=== PATIENT | male | born 1965 | race Two or more races ===

== ENCOUNTER → 2020-08-14 | Outpatient (CLI) | payer OTHER ==
[2020-08-14 14:43] LABS: BASO % 1 % (0-3); EOS # 0.1 x10^3/uL (0.0-0.7); EOS % 1 % (0-3); HEMATOCRIT 44.6 % (39.0-53.0); HEMOGLOBIN 15.3 g/dL (13.0-17.5); LYMPH # 1.5 x10^3/uL (1.0-4.8); LYMPH % 26 % (24-48); MEAN CORPUSCULAR HEMOGLOBIN 31 pg (25-35); MEAN CORPUSCULAR HGB CONC 34 g/dL (31-37); MEAN CORPUSCULAR VOLUME 89 fL (79-100); MONO # 0.5 x10^3/uL (0.0-1.1); MONO % 9 % (0-9); NEUT # 3.6 x10^3/uL (1.8-7.7); NEUT % 63 % (31-73); PLATELET COUNT 246 x10^3/uL (140-400); RED BLOOD COUNT 4.99 x10^6/uL (4.30-5.70); RED CELL DISTRIBUTION WIDTH 12.7 % (11.5-14.5); WHITE BLOOD COUNT 5.8 x10^3/uL (4.0-11.0)
[2020-08-14 14:52] LABS: CREATININE 0.9 mg/dL (0.7-1.3); POTASSIUM 4.2 mmol/L (3.5-5.1)
== END ==
LOC: SURGPAT 14:02
PROVIDERS: ATTEND Surgery
DX: Z01.812 Encounter for preprocedural laboratory examination (principal); C16.9 Malignant neoplasm of stomach, unspecified; Z98.84 Bariatric surgery status; Z20.828 Contact with and (suspected) exposure to other viral communicable diseases
CPT/HCPCS: 80048; 85025; U0003

== ENCOUNTER 2020-08-15 09:00 | Inpatient (IN) | payer OTHER ==
[~2020-08-15] VITALS: Ht 162.6 cm; Wt 79.7 kg
[2020-08-18] MEDS ORDERED: BUPIVACAINE-EPI 0.5%-1:200000 MPF 30 ML VIAL. INJ ONE (06:00)
[2020-08-18] MEDS ORDERED: MORPHINE SULFATE 2 MG/ML VIAL. IV PRN (07:00)
[2020-08-18] MEDS ORDERED: PROCHLORPERAZINE 10 MG/2 ML VIAL. IV PRN (07:00)
[2020-08-18] MEDS ORDERED: LIDOCAINE 1% PF 2 ML VIAL. ID PRN (07:00)
[2020-08-18] MEDS ORDERED: ONDANSETRON PF 4 MG/2 ML VIAL. IV PRN (07:00)
[2020-08-18] MEDS ORDERED: fentaNYL PF VIAL 100 MCG/2 ML VIAL IV PRN ×2 (07:00)
[2020-08-18] MEDS ORDERED: IV RINGERS,LACTATED 1000ML 1,000 ML IV SCH (07:00)
[2020-08-18] MEDS ORDERED: HYDROmorphone 2 MG/ML VIAL IV PRN (07:00)
[2020-08-18] MEDS ORDERED: PROPOFOL 10 MG/ML (20ML) VIAL. IV ONE (08:51)
[2020-08-18] MEDS ORDERED: LIDOCAINE 2% PF 5 ML VIAL. ONE (08:51)
[2020-08-18] MEDS ORDERED: ROCURONIUM 50 MG/5 ML VIAL. ONE ×3 (08:52→12:11)
[2020-08-18] MEDS ORDERED: fentaNYL PF VIAL 250 MCG/5 ML VIAL ONE (08:52)
[2020-08-18] MEDS ORDERED: MIDAZOLAM HCL/PF 2 MG/2 ML VIAL. ONE (08:52)
[2020-08-18] MEDS ORDERED: BUPIVACAINE MPF 0.25% 10 ML VIAL. ONE (09:12)
--- NOTE | 2020-08-18 09:25 | PDOC ---
SURGICAL PROGRESS NOTE DATE: 08/18/20 TIME: 09:22 Subjective 55 yo M with diffuse gastric cancer. TO OR for total gastrectomy with reconstruction. R/R/B/A d/w pt and pt's family. Risks, including, but not limited to: bleeding, infection, damage to surrounding structures, risk of anesthesia, risk of leak, need for J-tube, drains, saab and NGT. They appear to understand, their questions are answered and they elect to proceed. Office note H&P reviewed and unchanged. Vital Signs Vital Signs Date Time Temp Pulse Resp B/P (MAP) Pulse Ox O2 Delivery O2 Flow Rate FiO2 08/18/20 08:41 98.0 65 18 139/92 96 Room Air 98.0 Justicifation of Admission Dx: Justifications for Admission: Justification of Admission Dx: Yes CHF: Hemodynamic Instability MARVIN ENGEL MD Aug 18, 2020 09:25
[2020-08-18] MEDS: cefOXitin SODIUM IV Push 2 GM VIAL. IVP PRN ×2 (09:30→12:30)
[2020-08-18] MEDS ORDERED: ONDANSETRON PF 4 MG/2 ML VIAL. ONE (09:58)
[2020-08-18] MEDS ORDERED: DEXAMETHASONE SOD PHOS 4 MG/ML VIAL ONE (09:58)
[2020-08-18] MEDS ORDERED: PHENYLEPHRINE 10 MG/ML VIAL. ONE ×2 (10:16→10:52)
[2020-08-18] MEDS ORDERED: PHENYLEPHRINE in 0.9% NACL PF 1 MG/10 ML SYRINGE. IV ONE (10:52)
[2020-08-18] MEDS ORDERED: ePHEDrine PF IN SALINE 50 MG/10 ML SYRINGE. IV ONE (10:52)
[2020-08-18] MEDS ORDERED: NEOSTIGMINE METHYLSULFATE 5 MG/5 ML SYRINGE. ONE (13:14)
[2020-08-18] MEDS ORDERED: GLYCOPYRROLATE 1 MG/5 ML VIAL. ONE (13:14)
[2020-08-18] MEDS ORDERED: fentaNYL PF VIAL 100 MCG/2 ML VIAL ONE ×2 (13:36→15:16)
[2020-08-18] MEDS ORDERED: 0.9 % SODIUM CHLORIDE 10 ML DISP.SYRIN. IV PRN (13:45)
[2020-08-18] MEDS ORDERED: ONDANSETRON PF 4 MG/2 ML VIAL. IVP PRN (13:45)
[2020-08-18] MEDS: IV NORMAL SALINE 1000ML BAG 1,000 ML IV SCH (13:45)
[2020-08-18] MEDS ORDERED: NALOXONE 0.4 MG/ML VIAL. IV PRN (13:45)
--- NOTE | 2020-08-18 14:01 | PDOC4 ---
OPERATIVE NOTE Date: Date: Aug 18, 2020 Pre-Op Diagnosis: Gastric cancer Post-Op Diagnosis: same Procedure Performed: Total gastrectomy with renard en y reconstruction, J-tube placement Surgeon: Preston Engel Anesthesia Type: GETA Blood Loss: 200 Specimans Obtained: stomach Findings: normal anatomy, no obvious metastatic disease, externally normal stomach, except two small nodule anterior serosa, thickened ruggae in fundus Complications: none Operative Note: After obtaining informed consent, patient was taken to OR, induced under GETA and prepped in the usual fashion. Midline incision was made with cautery. Abdominal cavity was explored and noted as above. Omentum taken off transverse colon using cautery and ligasure. Short gastrics taken up to angle of his with ligasure. Spleen was uninjured. Duodenum was divided just distal to pylorus with contour stapler. Duodenal stump was oversewn with 3 0 vicryl. Lesser curve was taken with ligasure, harvesting paraduodenal and hepatic lymph nodes. Replaced left hepatic artery not seen. Left gastric divided at origin with ligasure and 0 vicryl stick tie. Anterior peritoneum was taken off pancreas using cautery and maintained with specimen. GE junction divided with cautery. Specimen was taken to pathology and reviewed. No obvious mass noted, although prominent rugae seen in fundus, c/w EGD report. Small bowel divided with SP stapler 30 cm distal to ligament of treitz. Proximal end of distal portion anastomosed to esophagus in end to side anastomosis with 3 0 PDS inside and 3 0 vicryl externally. NGT placed across anastomosis. Air was inflated and no air bubbles seen. Jejunojejunostomy created with 75 SP and 3 0 PDs 3 0 vicryl for enterotomy. Anastomosis noted to be patent, viable, under no tension and completely viable. Jejunostomy placed in common channel with 3 0 vicryl pursestring. Tacked to anterior abdominal wall using 3 0 vicryl and balloon inflated with 3 cc saline. Copious irrigation. No evidence of bleeding or other pathology noted at time of closure. 19 JUNIOR drain placed in LUQ and secured with 3 0 nylon. J tube secured with 3 0 nylon. Fascia repaired with 0 looped PDS. Skin repaired with 2 0 vicryl and 4 0 monocryl with mitchell left in wound. Dressing placed. Patient tolerated procedure well and sent to PACU in stable condition. All counts correct. Wound class is 3. MARVIN ENGEL MD Aug 18, 2020 14:01
[2020-08-18] MEDS: NORMAL SALINE 36.7 ML, fentaNYL PF VIAL 250 MCG, BUPIVACAINE MPF 0.75% 8.3 ML in EPIDUR... EPID PRN ×3 (14:40→20:12)
--- NOTE | 2020-08-18 15:04 | RAD ---
One view lower abdomen pelvis KUB 1:42 PM HISTORY: Post gastrectomy Supine AP view lower and pelvis KUB There is a percutaneous feeding tube on the left. There is no obvious free air. There is a nonobstructive bowel gas pattern. There is an NG tube in place. There is a linear vertical opacity superimposed over the spine which is felt to be something overlying the patient. IMPRESSION: Postop gastrectomy Electronically signed by: Paul Rosado III, MD (08/18/2020 3:01 PM) [facility]
[2020-08-18] MEDS ORDERED: SEVOFLURANE > 120 MINUTES. IH ONE (16:00)
--- NOTE | 2020-08-18 20:00 | NUR ---
patient receieved from PACU to room alert and OX4, Epidural/PCEA for pain management set up for patient,,assessment done . will Continue POC. Patient understand.
[2020-08-18] MEDS: HEPARIN for SUB-Q USE 5,000 UNIT/ML VIAL. SQ SCH (21:00)
[2020-08-18] MEDS: FAMOTIDINE 20 MG/2 ML VIAL IVP SCH (22:18)
[2020-08-18 23:00] VITALS: BP 101/56
[2020-08-18] MEDS: IV RINGERS,LACTATED 1000ML 1,000 ML IV SCH (23:45)
[2020-08-19] MEDS: IV RINGERS,LACTATED 1000ML 1,000 ML IV SCH ×3 (00:06→20:46)
--- NOTE | 2020-08-19 01:49 | NUR ---
pt stated he's feeling some numbness on his left forearm ad hands, APPLICATIONS INSTRUCTOR paged.
[2020-08-19] MEDS: NORMAL SALINE 36.7 ML, fentaNYL PF VIAL 250 MCG, BUPIVACAINE MPF 0.75% 8.3 ML in EPIDUR... EPID PRN ×6 (02:09→23:49)
--- NOTE | 2020-08-19 02:31 | NUR ---
JENA Watkins, ordered to decreased epidural hourly rate to 6ml/hr
[2020-08-19 03:00] VITALS: BP 110/60
[2020-08-19 07:00] VITALS: BP 110/62
[2020-08-19] MEDS: FAMOTIDINE 20 MG/2 ML VIAL IVP SCH ×2 (09:40→21:10)
[2020-08-19] MEDS: HEPARIN for SUB-Q USE 5,000 UNIT/ML VIAL. SQ SCH ×2 (09:44→21:16)
--- NOTE | 2020-08-19 09:56 | NUR ---
SW following. Discussed with RN, pt from home, 3L oxygen - which patient does not use at home, NPO. Pt has an epidural, had surgery 08/18/2020. RN advised no SW needs at this time. SW will continue to follow for any discharge planning needs. Addendum: 08/19/20 at 1304 by FAZAL VIZCARRA Pt has NG tube, J tube, and JUNIOR drain.
[2020-08-19 10:02] LABS: BASO % 0 % (0-3); EOS % 0 % (0-3); HEMATOCRIT 39.2 % (39.0-53.0); HEMOGLOBIN 13.1 g/dL (13.0-17.5); LYMPH # 1.3 x10^3/uL (1.0-4.8); LYMPH % 10 % (24-48); MEAN CORPUSCULAR HEMOGLOBIN 30 pg (25-35); MEAN CORPUSCULAR HGB CONC 33 g/dL (31-37); MEAN CORPUSCULAR VOLUME 91 fL (79-100); MONO # 1.1 x10^3/uL (0.0-1.1); MONO % 9 % (0-9); NEUT # 10.2 x10^3/uL (1.8-7.7); NEUT % 81 % (31-73); PLATELET COUNT 189 x10^3/uL (140-400); RED BLOOD COUNT 4.32 x10^6/uL (4.30-5.70); WHITE BLOOD COUNT 12.6 x10^3/uL (4.0-11.0)
[2020-08-19 10:13] LABS: CALCIUM 8.4 mg/dL (8.5-10.1); CREATININE 1.1 mg/dL (0.7-1.3)
--- NOTE | 2020-08-19 10:26 | PDOC ---
SURGICAL PROGRESS NOTE DATE: 08/19/20 TIME: 10:25 Subjective doing ok pain managed Vital Signs Vital Signs Date Time Temp Pulse Resp B/P (MAP) Pulse Ox O2 Delivery O2 Flow Rate FiO2 08/19/20 07:54 Nasal Cannula 3.0 08/19/20 07:00 99.2 77 18 110/62 (78) 92 99.2 I&O Intake and Output 08/19/20 07:00 Intake Total 2500 ml Output Total 790 ml Balance 1710 ml Intake Oral 0 ml IV Total 2500 ml Output Urine Total 455 ml Drainage Total 135 ml Estimated Blood Loss 200 ml PATIENT HAS A OSCAR: Yes General: Cooperative, No acute distress HEENT: Other (NG in place) Abdomen: Soft, Other (dressing dry, j tube in place, dominique serosang) Labs Laboratory Tests Test 08/18/20 17:00 08/19/20 09:25 Glucose (Fingerstick) 98 mg/dL (70-99) White Blood Count 12.6 x10^3/uL (4.0-11.0) Red Blood Count 4.32 x10^6/uL (4.30-5.70) Hemoglobin 13.1 g/dL (13.0-17.5) Hematocrit 39.2 % (39.0-53.0) Mean Corpuscular Volume 91 fL (79-100) Mean Corpuscular Hemoglobin 30 pg (25-35) Mean Corpuscular Hemoglobin Concent 33 g/dL (31-37) Red Cell Distribution Width 13.0 % (11.5-14.5) Platelet Count 189 x10^3/uL (140-400) Neutrophils (%) (Auto) 81 % (31-73) Lymphocytes (%) (Auto) 10 % (24-48) Monocytes (%) (Auto) 9 % (0-9) Eosinophils (%) (Auto) 0 % (0-3) Basophils (%) (Auto) 0 % (0-3) Neutrophils # (Auto) 10.2 x10^3/uL (1.8-7.7) Lymphocytes # (Auto) 1.3 x10^3/uL (1.0-4.8) Monocytes # (Auto) 1.1 x10^3/uL (0.0-1.1) Eosinophils # (Auto) 0.0 x10^3/uL (0.0-0.7) Basophils # (Auto) 0.0 x10^3/uL (0.0-0.2) Sodium Level 142 mmol/L (136-145) Potassium Level 4.0 mmol/L (3.5-5.1) Chloride Level 106 mmol/L (98-107) Carbon Dioxide Level 28 mmol/L (21-32) Anion Gap 8 (6-14) Blood Urea Nitrogen 14 mg/dL (8-26) Creatinine 1.1 mg/dL (0.7-1.3) Estimated GFR (Cockcroft-Gault) 69.0 Glucose Level 110 mg/dL (70-99) Calcium Level 8.4 mg/dL (8.5-10.1) Laboratory Tests Test 08/18/20 17:00 08/19/20 09:25 Glucose (Fingerstick) 98 mg/dL (70-99) White Blood Count 12.6 x10^3/uL (4.0-11.0) Red Blood Count 4.32 x10^6/uL (4.30-5.70) Hemoglobin 13.1 g/dL (13.0-17.5) Hematocrit 39.2 % (39.0-53.0) Mean Corpuscular Volume 91 fL (79-100) Mean Corpuscular Hemoglobin 30 pg (25-35) Mean Corpuscular Hemoglobin Concent 33 g/dL (31-37) Red Cell Distribution Width 13.0 % (11.5-14.5) Platelet Count 189 x10^3/uL (140-400) Neutrophils (%) (Auto) 81 % (31-73) Lymphocytes (%) (Auto) 10 % (24-48) Monocytes (%) (Auto) 9 % (0-9) Eosinophils (%) (Auto) 0 % (0-3) Basophils (%) (Auto) 0 % (0-3) Neutrophils # (Auto) 10.2 x10^3/uL (1.8-7.7) Lymphocytes # (Auto) 1.3 x10^3/uL (1.0-4.8) Monocytes # (Auto) 1.1 x10^3/uL (0.0-1.1) Eosinophils # (Auto) 0.0 x10^3/uL (0.0-0.7) Basophils # (Auto) 0.0 x10^3/uL (0.0-0.2) Sodium Level 142 mmol/L (136-145) Potassium Level 4.0 mmol/L (3.5-5.1) Chloride Level 106 mmol/L (98-107) Carbon Dioxide Level 28 mmol/L (21-32) Anion Gap 8 (6-14) Blood Urea Nitrogen 14 mg/dL (8-26) Creatinine 1.1 mg/dL (0.7-1.3) Estimated GFR (Cockcroft-Gault) 69.0 Glucose Level 110 mg/dL (70-99) Calcium Level 8.4 mg/dL (8.5-10.1) Problem List supportive care NG, j tube, DOMINIQUE Justicifation of Admission Dx: Justifications for Admission: Justification of Admission Dx: Yes CHF: Hemodynamic Instability MANUELA ALVES HEAD CORRECTION OFFICER Aug 19, 2020 10:26
[2020-08-19 11:00] VITALS: BP 100/63
[2020-08-19] MEDS: IV NORMAL SALINE 1000ML BAG 1,000 ML IV SCH (13:45)
[2020-08-19 15:00] VITALS: BP 109/66
[2020-08-19 19:00] VITALS: BP 128/76
[2020-08-19 23:00] VITALS: BP 129/84
[2020-08-20 03:00] VITALS: BP 140/82
[2020-08-20] MEDS: NORMAL SALINE 36.7 ML, fentaNYL PF VIAL 250 MCG, BUPIVACAINE MPF 0.75% 8.3 ML in EPIDUR... EPID PRN ×4 (05:22→21:19)
[2020-08-20 07:00] VITALS: BP 125/79
[2020-08-20] MEDS: FAMOTIDINE 20 MG/2 ML VIAL IVP SCH ×2 (08:29→20:53)
[2020-08-20] MEDS: IV RINGERS,LACTATED 1000ML 1,000 ML IV SCH ×3 (08:29→22:35)
[2020-08-20] MEDS: HEPARIN for SUB-Q USE 5,000 UNIT/ML VIAL. SQ SCH ×2 (08:32→20:57)
--- NOTE | 2020-08-20 09:21 | PDOC ---
SURGICAL PROGRESS NOTE DATE: 08/20/20 TIME: 09:20 Subjective Pt reports doing well, pain controlled, no flatus Vital Signs Vital Signs Date Time Temp Pulse Resp B/P (MAP) Pulse Ox O2 Delivery O2 Flow Rate FiO2 08/20/20 07:00 99.1 85 18 125/79 (94) 93 Room Air 99.1 08/20/20 05:52 2.0 I&O Intake and Output 08/20/20 07:00 Output Total 1170 ml Balance -1170 ml Output Urine Total 1100 ml Drainage Total 70 ml PATIENT HAS A OSCAR: Yes General: Alert, Oriented X3, Cooperative, No acute distress Abdomen: Soft, No tenderness, Other (JUNIOR serosang) Labs Laboratory Tests Test 08/18/20 17:00 08/19/20 09:25 Glucose (Fingerstick) 98 mg/dL (70-99) White Blood Count 12.6 x10^3/uL (4.0-11.0) Red Blood Count 4.32 x10^6/uL (4.30-5.70) Hemoglobin 13.1 g/dL (13.0-17.5) Hematocrit 39.2 % (39.0-53.0) Mean Corpuscular Volume 91 fL (79-100) Mean Corpuscular Hemoglobin 30 pg (25-35) Mean Corpuscular Hemoglobin Concent 33 g/dL (31-37) Red Cell Distribution Width 13.0 % (11.5-14.5) Platelet Count 189 x10^3/uL (140-400) Neutrophils (%) (Auto) 81 % (31-73) Lymphocytes (%) (Auto) 10 % (24-48) Monocytes (%) (Auto) 9 % (0-9) Eosinophils (%) (Auto) 0 % (0-3) Basophils (%) (Auto) 0 % (0-3) Neutrophils # (Auto) 10.2 x10^3/uL (1.8-7.7) Lymphocytes # (Auto) 1.3 x10^3/uL (1.0-4.8) Monocytes # (Auto) 1.1 x10^3/uL (0.0-1.1) Eosinophils # (Auto) 0.0 x10^3/uL (0.0-0.7) Basophils # (Auto) 0.0 x10^3/uL (0.0-0.2) Sodium Level 142 mmol/L (136-145) Potassium Level 4.0 mmol/L (3.5-5.1) Chloride Level 106 mmol/L (98-107) Carbon Dioxide Level 28 mmol/L (21-32) Anion Gap 8 (6-14) Blood Urea Nitrogen 14 mg/dL (8-26) Creatinine 1.1 mg/dL (0.7-1.3) Estimated GFR (Cockcroft-Gault) 69.0 Glucose Level 110 mg/dL (70-99) Calcium Level 8.4 mg/dL (8.5-10.1) Laboratory Tests Test 08/19/20 09:25 White Blood Count 12.6 x10^3/uL (4.0-11.0) Red Blood Count 4.32 x10^6/uL (4.30-5.70) Hemoglobin 13.1 g/dL (13.0-17.5) Hematocrit 39.2 % (39.0-53.0) Mean Corpuscular Volume 91 fL (79-100) Mean Corpuscular Hemoglobin 30 pg (25-35) Mean Corpuscular Hemoglobin Concent 33 g/dL (31-37) Red Cell Distribution Width 13.0 % (11.5-14.5) Platelet Count 189 x10^3/uL (140-400) Neutrophils (%) (Auto) 81 % (31-73) Lymphocytes (%) (Auto) 10 % (24-48) Monocytes (%) (Auto) 9 % (0-9) Eosinophils (%) (Auto) 0 % (0-3) Basophils (%) (Auto) 0 % (0-3) Neutrophils # (Auto) 10.2 x10^3/uL (1.8-7.7) Lymphocytes # (Auto) 1.3 x10^3/uL (1.0-4.8) Monocytes # (Auto) 1.1 x10^3/uL (0.0-1.1) Eosinophils # (Auto) 0.0 x10^3/uL (0.0-0.7) Basophils # (Auto) 0.0 x10^3/uL (0.0-0.2) Sodium Level 142 mmol/L (136-145) Potassium Level 4.0 mmol/L (3.5-5.1) Chloride Level 106 mmol/L (98-107) Carbon Dioxide Level 28 mmol/L (21-32) Anion Gap 8 (6-14) Blood Urea Nitrogen 14 mg/dL (8-26) Creatinine 1.1 mg/dL (0.7-1.3) Estimated GFR (Cockcroft-Gault) 69.0 Glucose Level 110 mg/dL (70-99) Calcium Level 8.4 mg/dL (8.5-10.1) Problem List s/p total gastrectomy await bowel fxn await path OOB cont NGT Justicifation of Admission Dx: Justifications for Admission: Justification of Admission Dx: Yes CHF: Hemodynamic Instability MARVIN ENGEL MD Aug 20, 2020 09:21
[2020-08-20 11:00] VITALS: BP 135/83
[2020-08-20] MEDS: IV NORMAL SALINE 1000ML BAG 1,000 ML IV SCH (13:45)
[2020-08-20 15:00] VITALS: BP 137/83
[2020-08-20 19:00] VITALS: BP 140/90
[2020-08-20 23:00] VITALS: BP 171/99
[2020-08-21 03:00] VITALS: BP 140/85
[2020-08-21] MEDS: NORMAL SALINE 36.7 ML, fentaNYL PF VIAL 250 MCG, BUPIVACAINE MPF 0.75% 8.3 ML in EPIDUR... EPID PRN ×5 (03:58→22:33)
[2020-08-21 07:00] VITALS: BP 148/92
[2020-08-21] MEDS: FAMOTIDINE 20 MG/2 ML VIAL IVP SCH ×2 (09:07→20:29)
[2020-08-21] MEDS: HEPARIN for SUB-Q USE 5,000 UNIT/ML VIAL. SQ SCH ×2 (09:08→20:35)
[2020-08-21] MEDS: IV RINGERS,LACTATED 1000ML 1,000 ML IV SCH ×2 (09:09→20:30)
--- NOTE | 2020-08-21 09:54 | PDOC ---
SURGICAL PROGRESS NOTE DATE: 08/21/20 TIME: 09:53 Subjective up in room using urinal pain managed Vital Signs Vital Signs Date Time Temp Pulse Resp B/P (MAP) Pulse Ox O2 Delivery O2 Flow Rate FiO2 08/21/20 09:19 16 Nasal Cannula 2.0 08/21/20 07:00 98.4 84 148/92 (110) 91 98.4 I&O Intake and Output 08/21/20 07:00 Intake Total 2400 ml Output Total 10 ml Balance 2390 ml IV Total 1200 ml Other 1200 ml Drainage Total 10 ml # Voids 1 General: Alert, Cooperative HEENT: Other (NG in place) Abdomen: Soft, Other (j tube drainage, dominique serosang) Assessment/Plan will clamp NG today Justicifation of Admission Dx: Justifications for Admission: Justification of Admission Dx: Yes CHF: Hemodynamic Instability MANUELA ALVES APRN Aug 21, 2020 09:54
[2020-08-21 11:00] VITALS: BP 140/86
[2020-08-21] MEDS: IV NORMAL SALINE 1000ML BAG 1,000 ML IV SCH (13:45)
[2020-08-21 15:00] VITALS: BP 133/84
[2020-08-21 19:20] VITALS: BP 160/93
[2020-08-21 23:10] VITALS: BP 158/91
[2020-08-22] MEDS: KETOROLAC 15 MG/ML VIAL. IVP SCH ×4 (00:19→18:07)
[2020-08-22 02:59] VITALS: BP 133/75
[2020-08-22] MEDS: NORMAL SALINE 36.7 ML, fentaNYL PF VIAL 250 MCG, BUPIVACAINE MPF 0.75% 8.3 ML in EPIDUR... EPID PRN ×5 (03:03→20:11)
[2020-08-22] MEDS: IV RINGERS,LACTATED 1000ML 1,000 ML IV SCH ×2 (06:20→16:18)
[2020-08-22 07:00] VITALS: BP 140/84
[2020-08-22] MEDS: FAMOTIDINE 20 MG/2 ML VIAL IVP SCH ×2 (09:22→21:32)
[2020-08-22] MEDS: HEPARIN for SUB-Q USE 5,000 UNIT/ML VIAL. SQ SCH ×2 (09:30→21:41)
[2020-08-22 11:00] VITALS: BP 132/82
--- NOTE | 2020-08-22 12:00 | PDOC ---
SURGICAL PROGRESS NOTE DATE: 08/22/20 TIME: 11:58 Subjective feeling ok did have retention yesterday--replaced saab epidural still in place Vital Signs Vital Signs Date Time Temp Pulse Resp B/P (MAP) Pulse Ox O2 Delivery O2 Flow Rate FiO2 08/22/20 11:00 97.8 70 18 132/82 (99) 96 Room Air 97.8 08/22/20 07:35 2.0 I&O Intake and Output 08/22/20 07:00 Intake Total 1200 ml Output Total 1635 ml Balance -435 ml Intake Oral 0 ml Other 1200 ml Output Urine Total 1625 ml Gastric Drainage Total 5 ml Drainage Total 5 ml # Voids 1 General: Alert, Cooperative HEENT: Other (ng in place, clamped ) Abdomen: Soft, Other (dominique scant serosang drainage, j tube to DD) Assessment/Plan clears, leave ng in place, clamped Justicifation of Admission Dx: Justifications for Admission: Justification of Admission Dx: Yes CHF: Hemodynamic Instability MANUELA ALVES APRN Aug 22, 2020 12:00
[2020-08-22] MEDS: IV NORMAL SALINE 1000ML BAG 1,000 ML IV SCH (13:45)
[2020-08-22 15:00] VITALS: BP 138/80
[2020-08-22 19:30] VITALS: BP 136/92
[2020-08-22 23:20] VITALS: BP 150/77
[2020-08-23] MEDS: KETOROLAC 15 MG/ML VIAL. IVP SCH ×5 (00:31→21:04)
[2020-08-23] MEDS: NORMAL SALINE 36.7 ML, fentaNYL PF VIAL 250 MCG, BUPIVACAINE MPF 0.75% 8.3 ML in EPIDUR... EPID PRN ×4 (01:24→19:42)
[2020-08-23 03:00] VITALS: BP 150/88
[2020-08-23] MEDS: IV RINGERS,LACTATED 1000ML 1,000 ML IV SCH ×3 (03:21→23:45)
[2020-08-23 07:00] VITALS: BP 142/82
[2020-08-23] MEDS: FAMOTIDINE 20 MG/2 ML VIAL IVP SCH ×2 (09:34→21:00)
[2020-08-23] MEDS: HEPARIN for SUB-Q USE 5,000 UNIT/ML VIAL. SQ SCH ×2 (09:43→21:15)
[2020-08-23 11:00] VITALS: BP 151/85
--- NOTE | 2020-08-23 12:18 | PDOC ---
PROGRESS NOTES Date of Service DATE: 08/23/20 TIME: 12:16 Subjective Subjective notes some pain in L abdomen near drains; reports fever Objective Objective Vital Signs Date Time Temp Pulse Resp B/P (MAP) Pulse Ox O2 Delivery O2 Flow Rate FiO2 08/23/20 11:00 98.5 86 20 151/85 (107) 91 Room Air 98.5 08/22/20 17:22 2.0 Intake and Output 08/23/20 07:00 Intake Total 120 ml Output Total 1815 ml Balance -1695 ml Intake Oral 120 ml Output Urine Total 1700 ml Drainage Total 115 ml # Voids 2 Physical Exam Abdomen: Soft (L abdominal drain with purulent fluid) Assessment Assessment S/P gastrectomy Plan Plan of Care Note fever, change in drainage; discussed with Dr Elder, plan NPO, NG back to suction, start zosyn Comment Review of Relevant I have reviewed the following items pao (where applicable) has been applied. Medications Current Medications Ondansetron HCl (Zofran) 4 mg PRN Q6HRS PRN IV NAUSEA/VOMITING; Start 08/18/20 at 07:00; Stop 08/19/20 at 06:59; Status DC Fentanyl Citrate (Fentanyl 2ml Vial) 25 mcg PRN Q5MIN PRN IV MILD PAIN 1-3 Last administered on 08/18/20at 15:20; Start 08/18/20 at 07:00; Stop 08/19/20 at 06:59; Status DC Fentanyl Citrate (Fentanyl 2ml Vial) 50 mcg PRN Q5MIN PRN IV MODERATE TO SEVERE PAIN; Start 08/18/20 at 07:00; Stop 08/19/20 at 06:59; Status DC Morphine Sulfate (Morphine Sulfate) 1 mg PRN Q10MIN PRN IV SEVERE PAIN 7-10; Start 08/18/20 at 07:00; Stop 08/19/20 at 06:59; Status DC Ringer's Solution 1,000 ml @ 30 mls/hr Q24H IV Last administered on 08/18/20at 08:48; Start 08/18/20 at 07:00; Stop 08/18/20 at 18:59; Status DC Lidocaine HCl (Xylocaine-Mpf 1% 2ml Vial) 2 ml PRN 1X PRN ID PRIOR TO IV START; Start 08/18/20 at 07:00; Stop 08/19/20 at 06:59; Status DC Hydromorphone HCl (Dilaudid) 0.5 mg PRN Q10MIN PRN IV SEV PAIN, Second choice; Start 08/18/20 at 07:00; Stop 08/19/20 at 06:59; Status DC Prochlorperazine Edisylate (Compazine) 5 mg PACU PRN PRN IV NAUSEA, MRX1; Start 08/18/20 at 07:00; Stop 08/19/20 at 06:59; Status DC Cefoxitin Sodium (Mefoxin) 2 gm OC PROC PRN IVP PRE-OP Last administered on 08/18/20at 12:30; Start 08/18/20 at 06:00; Stop 08/18/20 at 18:00; Status DC Bupivacaine HCl/ Epinephrine Bitart (Sensorcain-Epi 0.5%-1:[id number] Mpf) 30 ml 1X ONCE INJ ; Start 08/18/20 at 06:00; Stop 08/18/20 at 06:01; Status DC Propofol (Diprivan) 200 mg STK-MED ONCE IV ; Start 08/18/20 at 08:51; Stop 08/18/20 at 08:52; Status DC Lidocaine HCl (Lidocaine Pf 2% Vial) 5 ml STK-MED ONCE .ROUTE ; Start 08/18/20 at 08:51; Stop 08/18/20 at 08:52; Status DC Rocuronium [place] (Zemuron) 50 mg STK-MED ONCE .ROUTE ; Start 08/18/20 at 08:52; Stop 08/18/20 at 08:52; Status DC Midazolam HCl (Versed) 2 mg STK-MED ONCE .ROUTE ; Start 08/18/20 at 08:52; Stop 08/18/20 at 08:52; Status DC Fentanyl Citrate (Fentanyl 5ml Vial) 250 mcg STK-MED ONCE .ROUTE ; Start 08/18/20 at 08:52; Stop 08/18/20 at 08:52; Status DC Bupivacaine HCl (Sensorcaine-Mpf 0.25%) 10 ml STK-MED ONCE .ROUTE ; Start 08/18/20 at 09:12; Stop 08/18/20 at 09:12; Status DC Ondansetron HCl (Zofran) 4 mg STK-MED ONCE .ROUTE ; Start 08/18/20 at 09:58; Stop 08/18/20 at 09:58; Status DC Dexamethasone Sodium Phosphate (Decadron) 4 mg STK-MED ONCE .ROUTE ; Start 08/18/20 at 09:58; Stop 08/18/20 at 09:58; Status DC Phenylephrine HCl (Surya-Synephrine Inj) 10 mg STK-MED ONCE .ROUTE ; Start 08/18/20 at 10:16; Stop 08/18/20 at 10:16; Status DC Rocuronium [place] (Zemuron) 50 mg STK-MED ONCE .ROUTE ; Start 08/18/20 at 10:34; Stop 08/18/20 at 10:34; Status DC Phenylephrine HCl (Surya-Synephrine Inj) 10 mg STK-MED ONCE .ROUTE ; Start 08/18/20 at 10:52; Stop 08/18/20 at 10:52; Status DC Phenylephrine HCl (PHENYLEPHRINE in 0.9% NACL PF) 1 mg STK-MED ONCE IV ; Start 08/18/20 at 10:52; Stop 08/18/20 at 10:53; Status DC Ephedrine Sulfate (ePHEDrine PF IN SALINE SYRINGE) 50 mg STK-MED ONCE IV ; Start 08/18/20 at 10:52; Stop 08/18/20 at 10:53; Status DC Rocuronium [place] (Zemuron) 50 mg STK-MED ONCE .ROUTE ; Start 08/18/20 at 12:11; Stop 08/18/20 at 12:11; Status DC Sodium Chloride 36.7 ml/Fentanyl Citrate 250 mcg/ Bupivacaine HCl 8.3 ml/Epidural Dosage Infused (Pha) 50 ml @ 0 mls/hr CONT PRN EPID SEE PROTOCOL TABLE Last administered on 08/19/20at 12:48; Start 08/18/20 at 13:00; Stop 08/19/20 at 02:30; Status DC Neostigmine [place] (Neostigmine Methylsulfate) 5 mg STK-MED ONCE .ROUTE ; Start 08/18/20 at 13:14; Stop 08/18/20 at 13:14; Status DC Glycopyrrolate (Robinul) 1 mg STK-MED ONCE .ROUTE ; Start 08/18/20 at 13:14; Stop 08/18/20 at 13:14; Status DC Fentanyl Citrate (Fentanyl 2ml Vial) 100 mcg STK-MED ONCE .ROUTE ; Start 08/18/20 at 13:36; Stop 08/18/20 at 13:36; Status DC Famotidine (Pepcid Vial) 20 mg BID IVP Last administered on 08/23/20at 09:34; Start 08/18/20 at 21:00 Heparin Sodium (Porcine) (Heparin Sodium) 5,000 unit Q12HR SQ Last administered on 08/23/20at 09:43; Start 08/18/20 at 21:00 Sodium Chloride (Normal Saline Flush) 3 ml QSHIFT PRN IV AFTER MEDS AND BLOOD DRAWS; Start 08/18/20 at 13:45 Ringer's Solution 1,000 ml @ 100 mls/hr Q10H IV Last administered on 08/23/20at 03:21; Start 08/18/20 at 13:45 Naloxone HCl (Narcan) 0.4 mg PRN Q2MIN PRN IV SEE INSTRUCTIONS; Start 08/18/20 at 13:45 Sodium Chloride 1,000 ml @ 25 mls/hr Q24H IV ; Start 08/18/20 at 13:45 Ondansetron HCl (Zofran) 4 mg PRN Q6HRS PRN IVP NAUSEA, 1ST CHOICE; Start 08/18/20 at 13:45 Fentanyl Citrate (Fentanyl 2ml Vial) 100 mcg STK-MED ONCE .ROUTE ; Start 08/18/20 at 15:16; Stop 08/18/20 at 15:16; Status DC Sevoflurane (Ultane) 90 ml STK-MED ONCE IH ; Start 08/18/20 at 16:00; Stop 08/18/20 at 16:00; Status DC Sodium Chloride 36.7 ml/Fentanyl Citrate 250 mcg/ Bupivacaine HCl 8.3 ml/Epidural Dosage Infused (Pha) 50 ml @ 0 mls/hr CONT PRN EPID SEE PROTOCOL TABLE Last administered on 08/21/20at 09:19; Start 08/19/20 at 02:30; Stop 08/21/20 at 09:23; Status DC Sodium Chloride 36.7 ml/Fentanyl Citrate 250 mcg/ Bupivacaine HCl 8.3 ml/Epidural Dosage Infused (Pha) 50 ml @ 0 mls/hr CONT PRN EPID SEE PROTOCOL TABLE Last administered on 08/23/20at 07:17; Start 08/21/20 at 09:30 Ketorolac Tromethamine (Toradol 15mg Vial) 15 mg Q6HRS IVP Last administered on 08/23/20at 11:51; Start 08/22/20 at 00:00; Stop 08/24/20 at 00:05 Active Scripts Active Reported No Known Medications Prior To Admisstion (Info) Each 1 Each DAILY Vitals/I & O Vital Sign - Last 24 Hours 08/22/20 08/22/20 08/22/20 08/22/20 12:26 13:10 15:00 16:28 Temp 97.8 97.8 Pulse 72 Resp 16 B/P (MAP) 138/80 (99) Pulse Ox 94 O2 Delivery Nasal Cannula Nasal Cannula Room Air Nasal Cannula O2 Flow Rate 2.0 08/22/20 08/22/20 08/22/20 08/22/20 17:22 19:30 20:00 20:11 Temp 99.2 99.2 Pulse 76 Resp 20 B/P (MAP) 136/92 (107) Pulse Ox 94 91 O2 Delivery Nasal Cannula Room Air Room Air Room Air O2 Flow Rate 2.0 08/22/20 08/22/20 08/23/20 08/23/20 20:41 23:20 01:24 03:00 Temp 102.6 98.9 102.6 98.9 Pulse 96 81 Resp 20 20 B/P (MAP) 150/77 (101) 150/88 (108) Pulse Ox 90 98 O2 Delivery Room Air Room Air Room Air Room Air 08/23/20 08/23/20 08/23/20 07:00 07:17 11:00 Temp 98.2 98.5 98.2 98.5 Pulse 82 86 Resp 20 20 B/P (MAP) 142/82 (102) 151/85 (107) Pulse Ox 92 91 O2 Delivery Room Air Room Air Room Air Intake and Output 08/22/20 08/22/20 08/23/20 15:00 23:00 07:00 Intake Total 120 ml Output Total 1200 ml 615 ml Balance -1200 ml -495 ml Justifications for Admission Other Justification Nutrition Consultation Dietary Evaluation: Recommendations by RD: Dietary education by RD, Increase Calorie Intake, Protein supplementation Comments: REC advacing diet as able to GI soft REC considering PPN if clear liquids not tolerated over the next 24-48 hours. Expected Outcomes/Goals: diet advancement Malnutrition Findings: Food and Nutrition Intake (Mod: <75% est energy req 7days Body Fat Depletion (Non Severe: Mild Depletion Weight Status: Obese IRASEMA GUTIERREZ MD Aug 23, 2020 12:18
[2020-08-23 13:46] LABS: ALBUMIN 2.1 g/dL (3.4-5.0); ALBUMIN/GLOBULIN RATIO 0.6 (1.0-1.7); BASO % 0 % (0-3); CALCIUM 8.1 mg/dL (8.5-10.1); CREATININE 0.8 mg/dL (0.7-1.3); EOS # 0.1 x10^3/uL (0.0-0.7); EOS % 1 % (0-3); GFR 99.6; HEMATOCRIT 42.9 % (39.0-53.0); HEMOGLOBIN 14.2 g/dL (13.0-17.5); LYMPH # 0.4 x10^3/uL (1.0-4.8); LYMPH % 4 % (24-48); MEAN CORPUSCULAR HEMOGLOBIN 30 pg (25-35); MEAN CORPUSCULAR HGB CONC 33 g/dL (31-37); MEAN CORPUSCULAR VOLUME 91 fL (79-100); MONO # 0.6 x10^3/uL (0.0-1.1); MONO % 7 % (0-9); NEUT # 7.7 x10^3/uL (1.8-7.7); NEUT % 88 % (31-73); PLATELET COUNT 154 x10^3/uL (140-400); POTASSIUM 3.4 mmol/L (3.5-5.1); RED BLOOD COUNT 4.73 x10^6/uL (4.30-5.70); RED CELL DISTRIBUTION WIDTH 12.8 % (11.5-14.5); TOTAL BILIRUBIN 5.5 mg/dL (0.2-1.0); TOTAL PROTEIN 5.4 g/dL (6.4-8.2); WHITE BLOOD COUNT 8.8 x10^3/uL (4.0-11.0)
[2020-08-23 14:18] LABS: % BANDS 4 % (0-9); % LYMPHS 5 % (24-48); % MONOS 5 % (0-10); % SEGS 86 % (35-66); PLT ESTIMATE ADEQUATE (ADEQUATE); TOXIC GRANULATION SLIGHT
[2020-08-23] MEDS: PIPERACILLIN/TAZOBACTAM 3.375 GM in IV NORMAL SALINE 50ML 50 ML IV SCH ×2 (14:34→18:19)
[2020-08-23 15:00] VITALS: BP 157/77
[2020-08-23] MEDS: IV NORMAL SALINE 1000ML BAG 1,000 ML IV SCH (18:22)
[2020-08-23 19:00] VITALS: BP 142/75
[2020-08-23 23:00] VITALS: BP 123/75
[2020-08-24] MEDS: NORMAL SALINE 36.7 ML, fentaNYL PF VIAL 250 MCG, BUPIVACAINE MPF 0.75% 8.3 ML in EPIDUR... EPID PRN ×4 (01:42→20:00)
[2020-08-24 03:00] VITALS: BP 140/77
[2020-08-24] MEDS: PIPERACILLIN/TAZOBACTAM 3.375 GM in IV NORMAL SALINE 50ML 50 ML IV SCH ×4 (06:43→17:42)
[2020-08-24 07:00] VITALS: BP 151/88
[2020-08-24] MEDS: FAMOTIDINE 20 MG/2 ML VIAL IVP SCH ×2 (07:22→21:25)
[2020-08-24] MEDS: HEPARIN for SUB-Q USE 5,000 UNIT/ML VIAL. SQ SCH ×2 (07:24→21:31)
[2020-08-24] MEDS: IV RINGERS,LACTATED 1000ML 1,000 ML IV SCH ×2 (09:45→17:47)
[2020-08-24 11:00] VITALS: BP 131/81
--- NOTE | 2020-08-24 11:54 | PDOC ---
PROGRESS NOTES Date of Service DATE: 08/24/20 TIME: 11:53 Subjective Subjective feeling "better", no fevers since starting antibiotics Objective Objective Vital Signs Date Time Temp Pulse Resp B/P (MAP) Pulse Ox O2 Delivery O2 Flow Rate FiO2 08/24/20 11:00 98.3 75 16 131/81 (98) 94 Room Air 98.3 08/23/20 20:00 2.0 Intake and Output 08/24/20 07:00 Intake Total 500 ml Output Total 1355 ml Balance -855 ml Intake Oral 500 ml Output Urine Total 825 ml Stool Total 300 ml Gastric Drainage Total 200 ml Drainage Total 30 ml Physical Exam Abdomen: Soft (tender L abdomen with palpation, L drain with purulent material) Assessment Assessment S/P gastrectomy Plan Plan of Care Fevers improved, WBC normal; note elevated bilirubin, JUNIOR drainage purulent; continue abx, Dr Elder updated on patient; repeat labs in AM including LFTs Comment Review of Relevant I have reviewed the following items pao (where applicable) has been applied. Labs Laboratory Tests Test 08/23/20 13:10 White Blood Count 8.8 x10^3/uL (4.0-11.0) Red Blood Count 4.73 x10^6/uL (4.30-5.70) Hemoglobin 14.2 g/dL (13.0-17.5) Hematocrit 42.9 % (39.0-53.0) Mean Corpuscular Volume 91 fL (79-100) Mean Corpuscular Hemoglobin 30 pg (25-35) Mean Corpuscular Hemoglobin Concent 33 g/dL (31-37) Red Cell Distribution Width 12.8 % (11.5-14.5) Platelet Count 154 x10^3/uL (140-400) Neutrophils (%) (Auto) 88 % (31-73) Lymphocytes (%) (Auto) 4 % (24-48) Monocytes (%) (Auto) 7 % (0-9) Eosinophils (%) (Auto) 1 % (0-3) Basophils (%) (Auto) 0 % (0-3) Neutrophils # (Auto) 7.7 x10^3/uL (1.8-7.7) Lymphocytes # (Auto) 0.4 x10^3/uL (1.0-4.8) Monocytes # (Auto) 0.6 x10^3/uL (0.0-1.1) Eosinophils # (Auto) 0.1 x10^3/uL (0.0-0.7) Basophils # (Auto) 0.0 x10^3/uL (0.0-0.2) Segmented Neutrophils % 86 % (35-66) Band Neutrophils % 4 % (0-9) Lymphocytes % 5 % (24-48) Monocytes % 5 % (0-10) Toxic Granulation Slight Platelet Estimate Adequate (ADEQUATE) Large Platelets Occ Sodium Level 137 mmol/L (136-145) Potassium Level 3.4 mmol/L (3.5-5.1) Chloride Level 100 mmol/L (98-107) Carbon Dioxide Level 26 mmol/L (21-32) Anion Gap 11 (6-14) Blood Urea Nitrogen 13 mg/dL (8-26) Creatinine 0.8 mg/dL (0.7-1.3) Estimated GFR (Cockcroft-Gault) 99.6 BUN/Creatinine Ratio 16 (6-20) Glucose Level 174 mg/dL (70-99) Calcium Level 8.1 mg/dL (8.5-10.1) Total Bilirubin 5.5 mg/dL (0.2-1.0) Aspartate Amino Transf (AST/SGOT) 25 U/L (15-37) Alanine Aminotransferase (ALT/SGPT) 35 U/L (16-63) Alkaline Phosphatase 82 U/L (46-116) Total Protein 5.4 g/dL (6.4-8.2) Albumin 2.1 g/dL (3.4-5.0) Albumin/Globulin Ratio 0.6 (1.0-1.7) Laboratory Tests Test 08/23/20 13:10 White Blood Count 8.8 x10^3/uL (4.0-11.0) Red Blood Count 4.73 x10^6/uL (4.30-5.70) Hemoglobin 14.2 g/dL (13.0-17.5) Hematocrit 42.9 % (39.0-53.0) Mean Corpuscular Volume 91 fL (79-100) Mean Corpuscular Hemoglobin 30 pg (25-35) Mean Corpuscular Hemoglobin Concent 33 g/dL (31-37) Red Cell Distribution Width 12.8 % (11.5-14.5) Platelet Count 154 x10^3/uL (140-400) Neutrophils (%) (Auto) 88 % (31-73) Lymphocytes (%) (Auto) 4 % (24-48) Monocytes (%) (Auto) 7 % (0-9) Eosinophils (%) (Auto) 1 % (0-3) Basophils (%) (Auto) 0 % (0-3) Neutrophils # (Auto) 7.7 x10^3/uL (1.8-7.7) Lymphocytes # (Auto) 0.4 x10^3/uL (1.0-4.8) Monocytes # (Auto) 0.6 x10^3/uL (0.0-1.1) Eosinophils # (Auto) 0.1 x10^3/uL (0.0-0.7) Basophils # (Auto) 0.0 x10^3/uL (0.0-0.2) Segmented Neutrophils % 86 % (35-66) Band Neutrophils % 4 % (0-9) Lymphocytes % 5 % (24-48) Monocytes % 5 % (0-10) Toxic Granulation Slight Platelet Estimate Adequate (ADEQUATE) Large Platelets Occ Sodium Level 137 mmol/L (136-145) Potassium Level 3.4 mmol/L (3.5-5.1) Chloride Level 100 mmol/L (98-107) Carbon Dioxide Level 26 mmol/L (21-32) Anion Gap 11 (6-14) Blood Urea Nitrogen 13 mg/dL (8-26) Creatinine 0.8 mg/dL (0.7-1.3) Estimated GFR (Cockcroft-Gault) 99.6 BUN/Creatinine Ratio 16 (6-20) Glucose Level 174 mg/dL (70-99) Calcium Level 8.1 mg/dL (8.5-10.1) Total Bilirubin 5.5 mg/dL (0.2-1.0) Aspartate Amino Transf (AST/SGOT) 25 U/L (15-37) Alanine Aminotransferase (ALT/SGPT) 35 U/L (16-63) Alkaline Phosphatase 82 U/L (46-116) Total Protein 5.4 g/dL (6.4-8.2) Albumin 2.1 g/dL (3.4-5.0) Albumin/Globulin Ratio 0.6 (1.0-1.7) Medications Current Medications Ondansetron HCl (Zofran) 4 mg PRN Q6HRS PRN IV NAUSEA/VOMITING; Start 08/18/20 at 07:00; Stop 08/19/20 at 06:59; Status DC Fentanyl Citrate (Fentanyl 2ml Vial) 25 mcg PRN Q5MIN PRN IV MILD PAIN 1-3 Last administered on 08/18/20at 15:20; Start 08/18/20 at 07:00; Stop 08/19/20 at 06:59; Status DC Fentanyl Citrate (Fentanyl 2ml Vial) 50 mcg PRN Q5MIN PRN IV MODERATE TO SEVERE PAIN; Start 08/18/20 at 07:00; Stop 08/19/20 at 06:59; Status DC Morphine Sulfate (Morphine Sulfate) 1 mg PRN Q10MIN PRN IV SEVERE PAIN 7-10; Start 08/18/20 at 07:00; Stop 08/19/20 at 06:59; Status DC Ringer's Solution 1,000 ml @ 30 mls/hr Q24H IV Last administered on 08/18/20at 08:48; Start 08/18/20 at 07:00; Stop 08/18/20 at 18:59; Status DC Lidocaine HCl (Xylocaine-Mpf 1% 2ml Vial) 2 ml PRN 1X PRN ID PRIOR TO IV START; Start 08/18/20 at 07:00; Stop 08/19/20 at 06:59; Status DC Hydromorphone HCl (Dilaudid) 0.5 mg PRN Q10MIN PRN IV SEV PAIN, Second choice; Start 08/18/20 at 07:00; Stop 08/19/20 at 06:59; Status DC Prochlorperazine Edisylate (Compazine) 5 mg PACU PRN PRN IV NAUSEA, MRX1; Start 08/18/20 at 07:00; Stop 08/19/20 at 06:59; Status DC Cefoxitin Sodium (Mefoxin) 2 gm OC PROC PRN IVP PRE-OP Last administered on 08/18/20at 12:30; Start 08/18/20 at 06:00; Stop 08/18/20 at 18:00; Status DC Bupivacaine HCl/ Epinephrine Bitart (Sensorcain-Epi 0.5%-1:[id number] Mpf) 30 ml 1X ONCE INJ ; Start 08/18/20 at 06:00; Stop 08/18/20 at 06:01; Status DC Propofol (Diprivan) 200 mg STK-MED ONCE IV ; Start 08/18/20 at 08:51; Stop 08/18/20 at 08:52; Status DC Lidocaine HCl (Lidocaine Pf 2% Vial) 5 ml STK-MED ONCE .ROUTE ; Start 08/18/20 at 08:51; Stop 08/18/20 at 08:52; Status DC Rocuronium [place] (Zemuron) 50 mg STK-MED ONCE .ROUTE ; Start 08/18/20 at 08:52; Stop 08/18/20 at 08:52; Status DC Midazolam HCl (Versed) 2 mg STK-MED ONCE .ROUTE ; Start 08/18/20 at 08:52; Stop 08/18/20 at 08:52; Status DC Fentanyl Citrate (Fentanyl 5ml Vial) 250 mcg STK-MED ONCE .ROUTE ; Start 08/18/20 at 08:52; Stop 08/18/20 at 08:52; Status DC Bupivacaine HCl (Sensorcaine-Mpf 0.25%) 10 ml STK-MED ONCE .ROUTE ; Start 08/18/20 at 09:12; Stop 08/18/20 at 09:12; Status DC Ondansetron HCl (Zofran) 4 mg STK-MED ONCE .ROUTE ; Start 08/18/20 at 09:58; Stop 08/18/20 at 09:58; Status DC Dexamethasone Sodium Phosphate (Decadron) 4 mg STK-MED ONCE .ROUTE ; Start 08/18/20 at 09:58; Stop 08/18/20 at 09:58; Status DC Phenylephrine HCl (Surya-Synephrine Inj) 10 mg STK-MED ONCE .ROUTE ; Start 08/18/20 at 10:16; Stop 08/18/20 at 10:16; Status DC Rocuronium [place] (Zemuron) 50 mg STK-MED ONCE .ROUTE ; Start 08/18/20 at 10:34; Stop 08/18/20 at 10:34; Status DC Phenylephrine HCl (Surya-Synephrine Inj) 10 mg STK-MED ONCE .ROUTE ; Start 08/18/20 at 10:52; Stop 08/18/20 at 10:52; Status DC Phenylephrine HCl (PHENYLEPHRINE in 0.9% NACL PF) 1 mg STK-MED ONCE IV ; Start 08/18/20 at 10:52; Stop 08/18/20 at 10:53; Status DC Ephedrine Sulfate (ePHEDrine PF IN SALINE SYRINGE) 50 mg STK-MED ONCE IV ; Start 08/18/20 at 10:52; Stop 08/18/20 at 10:53; Status DC Rocuronium [place] (Zemuron) 50 mg STK-MED ONCE .ROUTE ; Start 08/18/20 at 12:11; Stop 08/18/20 at 12:11; Status DC Sodium Chloride 36.7 ml/Fentanyl Citrate 250 mcg/ Bupivacaine HCl 8.3 ml/Epidural Dosage Infused (Pha) 50 ml @ 0 mls/hr CONT PRN EPID SEE PROTOCOL TABLE Last administered on 08/19/20at 12:48; Start 08/18/20 at 13:00; Stop 08/19/20 at 02:30; Status DC Neostigmine [place] (Neostigmine Methylsulfate) 5 mg STK-MED ONCE .ROUTE ; Start 08/18/20 at 13:14; Stop 08/18/20 at 13:14; Status DC Glycopyrrolate (Robinul) 1 mg STK-MED ONCE .ROUTE ; Start 08/18/20 at 13:14; Stop 08/18/20 at 13:14; Status DC Fentanyl Citrate (Fentanyl 2ml Vial) 100 mcg STK-MED ONCE .ROUTE ; Start 08/18/20 at 13:36; Stop 08/18/20 at 13:36; Status DC Famotidine (Pepcid Vial) 20 mg BID IVP Last administered on 08/24/20at 07:22; Start 08/18/20 at 21:00 Heparin Sodium (Porcine) (Heparin Sodium) 5,000 unit Q12HR SQ Last administered on 08/24/20at 07:24; Start 08/18/20 at 21:00 Sodium Chloride (Normal Saline Flush) 3 ml QSHIFT PRN IV AFTER MEDS AND BLOOD DRAWS; Start 08/18/20 at 13:45 Ringer's Solution 1,000 ml @ 100 mls/hr Q10H IV Last administered on 08/23/20at 03:21; Start 08/18/20 at 13:45 Naloxone HCl (Narcan) 0.4 mg PRN Q2MIN PRN IV SEE INSTRUCTIONS; Start 08/18/20 at 13:45 Sodium Chloride 1,000 ml @ 25 mls/hr Q24H IV Last administered on 08/23/20at 18:22; Start 08/18/20 at 13:45 Ondansetron HCl (Zofran) 4 mg PRN Q6HRS PRN IVP NAUSEA, 1ST CHOICE; Start 07/25 04/12 at 13:45 Fentanyl Citrate (Fentanyl 2ml Vial) 100 mcg STK-MED ONCE .ROUTE ; Start 08/18/20 at 15:16; Stop 08/18/20 at 15:16; Status DC Sevoflurane (Ultane) 90 ml STK-MED ONCE IH ; Start 08/18/20 at 16:00; Stop 08/18/20 at 16:00; Status DC Sodium Chloride 36.7 ml/Fentanyl Citrate 250 mcg/ Bupivacaine HCl 8.3 ml/Epidural Dosage Infused (Pha) 50 ml @ 0 mls/hr CONT PRN EPID SEE PROTOCOL TABLE Last administered on 08/21/20at 09:19; Start 08/19/20 at 02:30; Stop 08/21/20 at 09:23; Status DC Sodium Chloride 36.7 ml/Fentanyl Citrate 250 mcg/ Bupivacaine HCl 8.3 ml/Epidural Dosage Infused (Pha) 50 ml @ 0 mls/hr CONT PRN EPID SEE PROTOCOL TABLE Last administered on 08/24/20at 07:34; Start 08/21/20 at 09:30 Ketorolac Tromethamine (Toradol 15mg Vial) 15 mg Q6HRS IVP Last administered on 08/23/20at 21:04; Start 08/22/20 at 00:00; Stop 08/24/20 at 00:05; Status DC Piperacillin Sod/ Tazobactam Sod 3.375 gm/Sodium Chloride 50 ml @ 100 mls/hr Q6HRS IV Last administered on 08/24/20at 06:43; Start 08/23/20 at 12:30 Active Scripts Active Reported No Known Medications Prior To Admisstion (Info) Each 1 Each DAILY Vitals/I & O Vital Sign - Last 24 Hours 08/23/20 08/23/20 08/23/20 08/23/20 13:29 13:59 15:00 19:00 Temp 100.2 99.1 100.2 99.1 Pulse 80 77 Resp 18 20 18 B/P (MAP) 157/77 (103) 142/75 (97) Pulse Ox 89 89 97 O2 Delivery Room Air Room Air Room Air O2 Flow Rate 2.0 08/23/20 08/23/20 08/23/20 08/24/20 19:42 20:00 23:00 03:00 Temp 98.0 98.6 98.0 98.6 Pulse 71 81 Resp 16 18 16 B/P (MAP) 123/75 (91) 140/77 (98) Pulse Ox 95 93 O2 Delivery Room Air Nasal Cannula O2 Flow Rate 2.0 08/24/20 08/24/20 08/24/20 08/24/20 07:00 07:34 08:09 08:31 Temp 98.3 98.3 Pulse 80 Resp 16 16 16 B/P (MAP) 151/88 (109) Pulse Ox 94 O2 Delivery Room Air Room Air Room Air Room Air 08/24/20 11:00 Temp 98.3 98.3 Pulse 75 Resp 16 B/P (MAP) 131/81 (98) Pulse Ox 94 O2 Delivery Room Air Intake and Output 08/23/20 08/23/20 08/24/20 15:00 23:00 07:00 Intake Total 500 ml 0 ml Output Total 680 ml 675 ml Balance 500 ml -680 ml -675 ml Justifications for Admission Other Justification Nutrition Consultation Dietary Evaluation: Recommendations by RD: Dietary education by RD, Increase Calorie Intake, Protein supplementation Comments: REC advacing diet as able to GI soft REC considering PPN if clear liquids not tolerated over the next 24-48 hours. Expected Outcomes/Goals: diet advancement Malnutrition Findings: Food and Nutrition Intake (Mod: <75% est energy req 7days Body Fat Depletion (Non Severe: Mild Depletion Weight Status: Obese IRASEMA GUTIERREZ MD Aug 24, 2020 11:54
[2020-08-24] MEDS: IV NORMAL SALINE 1000ML BAG 1,000 ML IV SCH (13:45)
[2020-08-24 15:10] VITALS: BP 145/87
--- NOTE | 2020-08-24 17:57 | NUR ---
Patient's NG tube had been clamped prior to 08/23 am, but was then re-hooked up to low intermittent suction. 150cc out day shift 08/23; and 100cc out slot shift manager going into 08/24; then 100 out day shift of 08/24
[2020-08-24 19:00] VITALS: BP 166/90
[2020-08-24 22:36] VITALS: BP 142/79
[2020-08-25] MEDS: PIPERACILLIN/TAZOBACTAM 3.375 GM in IV NORMAL SALINE 50ML 50 ML IV SCH ×5 (01:24→23:40)
[2020-08-25] MEDS: NORMAL SALINE 36.7 ML, fentaNYL PF VIAL 250 MCG, BUPIVACAINE MPF 0.75% 8.3 ML in EPIDUR... EPID PRN ×2 (01:34→06:23)
[2020-08-25 03:39] VITALS: BP 145/82
[2020-08-25] MEDS: IV RINGERS,LACTATED 1000ML 1,000 ML IV SCH (05:58)
[2020-08-25 07:00] VITALS: BP 136/77
[2020-08-25 08:09] LABS: BASO % 1 % (0-3); EOS # 0.3 x10^3/uL (0.0-0.7); EOS % 3 % (0-3); HEMATOCRIT 35.1 % (39.0-53.0); HEMOGLOBIN 11.8 g/dL (13.0-17.5); LYMPH # 0.7 x10^3/uL (1.0-4.8); LYMPH % 8 % (24-48); MEAN CORPUSCULAR HEMOGLOBIN 30 pg (25-35); MEAN CORPUSCULAR HGB CONC 34 g/dL (31-37); MEAN CORPUSCULAR VOLUME 89 fL (79-100); MONO # 0.9 x10^3/uL (0.0-1.1); MONO % 10 % (0-9); NEUT # 7.1 x10^3/uL (1.8-7.7); NEUT % 78 % (31-73); PLATELET COUNT 291 x10^3/uL (140-400); RED BLOOD COUNT 3.93 x10^6/uL (4.30-5.70); WHITE BLOOD COUNT 9.1 x10^3/uL (4.0-11.0)
[2020-08-25 08:13] LABS: ALBUMIN 1.9 g/dL (3.4-5.0); CALCIUM 8.3 mg/dL (8.5-10.1); CREATININE 0.7 mg/dL (0.7-1.3); DIRECT BILIRUBIN 3.1 mg/dL (0.0-0.2); GFR 116.2; POTASSIUM 3.5 mmol/L (3.5-5.1); TOTAL BILIRUBIN 3.7 mg/dL (0.2-1.0); TOTAL PROTEIN 5.9 g/dL (6.4-8.2)
[2020-08-25] MEDS: FAMOTIDINE 20 MG/2 ML VIAL IVP SCH ×2 (09:21→20:24)
[2020-08-25] MEDS: HEPARIN for SUB-Q USE 5,000 UNIT/ML VIAL. SQ SCH ×2 (09:28→20:29)
--- NOTE | 2020-08-25 09:36 | NUR ---
SW following. Discussed with RN, pt from home with family, room aur, NPO, epidural, NG clamped, minimal bowel sounds. PT/OT recommending home with home health/ home with assistance. SW to speak with pt to determine choice. SW will continue to follow.
[2020-08-25 10:47] VITALS: BP 153/82
[2020-08-25] MEDS ORDERED: NALOXONE 0.4 MG/ML VIAL. IV PRN (12:30)
[2020-08-25] MEDS: MORPHINE SULFATE 30 ML IV PRN (13:02)
[2020-08-25] MEDS: IV NORMAL SALINE 1000ML BAG 1,000 ML IV SCH (13:45)
[2020-08-25 14:46] VITALS: BP 150/84
--- NOTE | 2020-08-25 15:43 | PDOC ---
SURGICAL PROGRESS NOTE DATE: 08/25/20 TIME: 15:41 Subjective Pt with c/o pain LUQ, no N/V Vital Signs Vital Signs Date Time Temp Pulse Resp B/P (MAP) Pulse Ox O2 Delivery O2 Flow Rate FiO2 08/25/20 14:46 98.1 62 17 150/84 (106) 95 Room Air 98.1 08/24/20 19:15 2.0 I&O Intake and Output 08/25/20 07:00 Intake Total 960 ml Output Total 1945 ml Balance -985 ml Intake Oral 0 ml Tube Feeding 480 ml Other 480 ml Output Urine Total 1650 ml Drainage Total 295 ml PATIENT HAS A OSCAR: Yes (urinary retention) General: Alert, Oriented X3, Cooperative, No acute distress Abdomen: Soft, No tenderness, Other (JUNIOR purulent) Labs Laboratory Tests Test 08/25/20 07:33 White Blood Count 9.1 x10^3/uL (4.0-11.0) Red Blood Count 3.93 x10^6/uL (4.30-5.70) Hemoglobin 11.8 g/dL (13.0-17.5) Hematocrit 35.1 % (39.0-53.0) Mean Corpuscular Volume 89 fL (79-100) Mean Corpuscular Hemoglobin 30 pg (25-35) Mean Corpuscular Hemoglobin Concent 34 g/dL (31-37) Red Cell Distribution Width 13.0 % (11.5-14.5) Platelet Count 291 x10^3/uL (140-400) Neutrophils (%) (Auto) 78 % (31-73) Lymphocytes (%) (Auto) 8 % (24-48) Monocytes (%) (Auto) 10 % (0-9) Eosinophils (%) (Auto) 3 % (0-3) Basophils (%) (Auto) 1 % (0-3) Neutrophils # (Auto) 7.1 x10^3/uL (1.8-7.7) Lymphocytes # (Auto) 0.7 x10^3/uL (1.0-4.8) Monocytes # (Auto) 0.9 x10^3/uL (0.0-1.1) Eosinophils # (Auto) 0.3 x10^3/uL (0.0-0.7) Basophils # (Auto) 0.0 x10^3/uL (0.0-0.2) Sodium Level 141 mmol/L (136-145) Potassium Level 3.5 mmol/L (3.5-5.1) Chloride Level 104 mmol/L (98-107) Carbon Dioxide Level 23 mmol/L (21-32) Anion Gap 14 (6-14) Blood Urea Nitrogen 15 mg/dL (8-26) Creatinine 0.7 mg/dL (0.7-1.3) Estimated GFR (Cockcroft-Gault) 116.2 Glucose Level 93 mg/dL (70-99) Calcium Level 8.3 mg/dL (8.5-10.1) Total Bilirubin 3.7 mg/dL (0.2-1.0) Direct Bilirubin 3.1 mg/dL (0.0-0.2) Aspartate Amino Transf (AST/SGOT) 29 U/L (15-37) Alanine Aminotransferase (ALT/SGPT) 31 U/L (16-63) Alkaline Phosphatase 86 U/L (46-116) Total Protein 5.9 g/dL (6.4-8.2) Albumin 1.9 g/dL (3.4-5.0) Laboratory Tests Test 08/25/20 07:33 White Blood Count 9.1 x10^3/uL (4.0-11.0) Red Blood Count 3.93 x10^6/uL (4.30-5.70) Hemoglobin 11.8 g/dL (13.0-17.5) Hematocrit 35.1 % (39.0-53.0) Mean Corpuscular Volume 89 fL (79-100) Mean Corpuscular Hemoglobin 30 pg (25-35) Mean Corpuscular Hemoglobin Concent 34 g/dL (31-37) Red Cell Distribution Width 13.0 % (11.5-14.5) Platelet Count 291 x10^3/uL (140-400) Neutrophils (%) (Auto) 78 % (31-73) Lymphocytes (%) (Auto) 8 % (24-48) Monocytes (%) (Auto) 10 % (0-9) Eosinophils (%) (Auto) 3 % (0-3) Basophils (%) (Auto) 1 % (0-3) Neutrophils # (Auto) 7.1 x10^3/uL (1.8-7.7) Lymphocytes # (Auto) 0.7 x10^3/uL (1.0-4.8) Monocytes # (Auto) 0.9 x10^3/uL (0.0-1.1) Eosinophils # (Auto) 0.3 x10^3/uL (0.0-0.7) Basophils # (Auto) 0.0 x10^3/uL (0.0-0.2) Sodium Level 141 mmol/L (136-145) Potassium Level 3.5 mmol/L (3.5-5.1) Chloride Level 104 mmol/L (98-107) Carbon Dioxide Level 23 mmol/L (21-32) Anion Gap 14 (6-14) Blood Urea Nitrogen 15 mg/dL (8-26) Creatinine 0.7 mg/dL (0.7-1.3) Estimated GFR (Cockcroft-Gault) 116.2 Glucose Level 93 mg/dL (70-99) Calcium Level 8.3 mg/dL (8.5-10.1) Total Bilirubin 3.7 mg/dL (0.2-1.0) Direct Bilirubin 3.1 mg/dL (0.0-0.2) Aspartate Amino Transf (AST/SGOT) 29 U/L (15-37) Alanine Aminotransferase (ALT/SGPT) 31 U/L (16-63) Alkaline Phosphatase 86 U/L (46-116) Total Protein 5.9 g/dL (6.4-8.2) Albumin 1.9 g/dL (3.4-5.0) Problem List s/p total gastrectomy will start IV nutrition check CT to evaluate anastomosis possible start enteral nutrition Justicifation of Admission Dx: Justifications for Admission: Justification of Admission Dx: Yes CHF: Hemodynamic Instability MARVIN ENGEL MD Aug 25, 2020 15:43
[2020-08-25] MEDS ORDERED: CONTRAST GIVEN. MC PRN (16:15)
[2020-08-25] MEDS ORDERED: IOHEXOL 300 MG/ML 100ML VIAL. IV ONE (16:15)
[2020-08-25] MEDS ORDERED: IOHEXOL 240 MG/ML 50ML VIAL. PO ONE (16:15)
[2020-08-25] MEDS: AMINO AC 3%/ELECTROLYTE/GLYCER 1,000 ML IV SCH (18:10)
[2020-08-25 19:00] VITALS: BP 156/88
[2020-08-25 23:00] VITALS: BP 162/82
[2020-08-26] VITALS (16 sets, daily range): BP systolic 130–191; BP diastolic 78–105
[2020-08-26] MEDS: PIPERACILLIN/TAZOBACTAM 3.375 GM in IV NORMAL SALINE 50ML 50 ML IV SCH ×3 (05:20→18:28)
[2020-08-26] MEDS: FAMOTIDINE 20 MG/2 ML VIAL IVP SCH ×2 (08:55→20:36)
[2020-08-26] MEDS: AMINO AC 3%/ELECTROLYTE/GLYCER 1,000 ML IV SCH ×2 (08:55→22:02)
--- NOTE | 2020-08-26 09:29 | RAD ---
EXAM: Abdomen and pelvis CT with intravenous contrast. HISTORY: Gastrectomy. TECHNIQUE: Computed tomographic images of the abdomen and pelvis were obtained following the administration of intravenous contrast. Multiplanar reformatting was performed. *One or more of the following individualized dose reduction techniques were utilized for this examination: 1. Automated exposure control. 2. Adjustment of the mA and/or kV according to patient size. 3. Use of iterative reconstruction technique. COMPARISON: None. FINDINGS: Evaluation of the lower thorax demonstrates partial left lower lobe consolidation and lingular and right lower lobe atelectasis or interstitial infiltrate. There are small left and trace right pleural effusions. The heart is upper normal in size. The stomach is surgically absent. There is a nasogastric tube extending from the esophagus beyond a surgical anastomosis into the small bowel bowel. There is a small amount of free air adjacent to the anastomosis. There is also a small collection of fluid posterior to the anastomosis which contains a region of hyperdensity possibly due to contrast, given the presence of contrast within loops of small bowel. This collection measures approximately 6.5 cm. There is a left ventral percutaneous drainage catheter looped within this hyperdense collection and terminating within the right upper abdomen. The liver is unremarkable. The gallbladder, pancreas, spleen, adrenal glands and left kidney are unremarkable. There is a tiny right renal cortical cyst. There is no appendicitis. There is a jejunostomy tube in expected position. There is no bowel obstruction. There is distal colonic diverticulosis. There is a Hidalgo catheter within a decompressed bladder. There is a small amount of gas within the bladder lumen likely due to recent catheterization. There are ventral abdominal wall skin carlos and there is a tiny amount of stranding and focus of gas within the ventral peritoneum due to relative recent laparotomy. The aorta is normal in caliber. There is no lymphadenopathy. There is no suspicious osseous lesion. IMPRESSION: 1. Findings consistent with a recent gastrectomy. There is a small amount of postoperative extraluminal gas and a small fluid collection within the left upper quadrant. There is superimposed hyperdense material in this location which is consistent with extraluminal contrast, given the presence of contrast within small bowel loops. These findings are consistent with bowel leak likely at the level of the anastomosis. There is a drainage catheter coursing through this location. There is also a jejunostomy tube within the small bowel. 2. Left lower lobe partial consolidation and lingular and right lower lobe infiltrate or atelectasis and small left greater than right pleural effusions. 3. Colonic diverticulosis. Findings were discussed with Giovanni, the nurse caring for the patient, at 0920 hours on 08/26/2020. Electronically signed by: Susi Napier MD (08/26/2020 9:26 AM) [id number]
[2020-08-26] MEDS: HEPARIN for SUB-Q USE 5,000 UNIT/ML VIAL. SQ SCH ×2 (09:59→20:37)
--- NOTE | 2020-08-26 10:31 | NUR ---
SW following. 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 IR consulted, nutrition consulted. SW will continue to follow.
--- NOTE | 2020-08-26 10:32 | PDOC ---
SURGICAL PROGRESS NOTE DATE: 08/26/20 TIME: 10:28 Subjective Pt with some LUQ pain but improved Vital Signs Vital Signs Date Time Temp Pulse Resp B/P (MAP) Pulse Ox O2 Delivery O2 Flow Rate FiO2 08/26/20 08:30 Room Air 08/26/20 07:00 98.8 53 18 148/85 (106) 96 98.8 I&O Intake and Output 08/26/20 07:00 Intake Total 0 ml Output Total 1950 ml Balance -1950 ml Intake Oral 0 ml Output Urine Total 1625 ml Gastric Drainage Total 150 ml Drainage Total 175 ml PATIENT HAS A SAAB: Yes (urinary retention, will start flomax and plan saab removal in 48 hours) General: Alert, Oriented X3, Cooperative, No acute distress Abdomen: Soft, Other (mild TTP LUQ, JUNIOR with purulent drainage) Labs Laboratory Tests Test 08/25/20 07:33 White Blood Count 9.1 x10^3/uL (4.0-11.0) Red Blood Count 3.93 x10^6/uL (4.30-5.70) Hemoglobin 11.8 g/dL (13.0-17.5) Hematocrit 35.1 % (39.0-53.0) Mean Corpuscular Volume 89 fL (79-100) Mean Corpuscular Hemoglobin 30 pg (25-35) Mean Corpuscular Hemoglobin Concent 34 g/dL (31-37) Red Cell Distribution Width 13.0 % (11.5-14.5) Platelet Count 291 x10^3/uL (140-400) Neutrophils (%) (Auto) 78 % (31-73) Lymphocytes (%) (Auto) 8 % (24-48) Monocytes (%) (Auto) 10 % (0-9) Eosinophils (%) (Auto) 3 % (0-3) Basophils (%) (Auto) 1 % (0-3) Neutrophils # (Auto) 7.1 x10^3/uL (1.8-7.7) Lymphocytes # (Auto) 0.7 x10^3/uL (1.0-4.8) Monocytes # (Auto) 0.9 x10^3/uL (0.0-1.1) Eosinophils # (Auto) 0.3 x10^3/uL (0.0-0.7) Basophils # (Auto) 0.0 x10^3/uL (0.0-0.2) Sodium Level 141 mmol/L (136-145) Potassium Level 3.5 mmol/L (3.5-5.1) Chloride Level 104 mmol/L (98-107) Carbon Dioxide Level 23 mmol/L (21-32) Anion Gap 14 (6-14) Blood Urea Nitrogen 15 mg/dL (8-26) Creatinine 0.7 mg/dL (0.7-1.3) Estimated GFR (Cockcroft-Gault) 116.2 Glucose Level 93 mg/dL (70-99) Calcium Level 8.3 mg/dL (8.5-10.1) Total Bilirubin 3.7 mg/dL (0.2-1.0) Direct Bilirubin 3.1 mg/dL (0.0-0.2) Aspartate Amino Transf (AST/SGOT) 29 U/L (15-37) Alanine Aminotransferase (ALT/SGPT) 31 U/L (16-63) Alkaline Phosphatase 86 U/L (46-116) Total Protein 5.9 g/dL (6.4-8.2) Albumin 1.9 g/dL (3.4-5.0) I have reviewed the following CT concerning for anastomotic leak, controlled by drain, majority of contrast goes into small bowel Problem List gastric cancer will ask oncology to evaluate for adjuvant therapy will start TPN and trophic feeds via J-tube will ask IR to consider additional drain and maintain NGT with LIWS as pt stable, will treat anastomotic leak with non operative mechanisms d/w pt and pt's supportive . Justicifation of Admission Dx: Justifications for Admission: Justification of Admission Dx: Yes CHF: Hemodynamic Instability MARVIN ENGEL MD Aug 26, 2020 10:32
[2020-08-26 12:58] LABS: PROTHROMBIN TIME PATIENT 13.6 SEC (11.7-14.0)
[2020-08-26] MEDS ORDERED: LIDOCAINE WITH 8.4% SOD BICARB 3 ML DISP.SYRIN. ONE (13:54)
[2020-08-26] MEDS ORDERED: MIDAZOLAM HCL/PF 2 MG/2 ML VIAL. ONE (14:14)
[2020-08-26] MEDS ORDERED: fentaNYL PF VIAL 100 MCG/2 ML VIAL ONE (14:14)
[2020-08-26] MEDS ORDERED: MIDAZOLAM HCL/PF 2 MG/2 ML VIAL. IV ONE (15:00)
[2020-08-26] MEDS ORDERED: fentaNYL PF VIAL 100 MCG/2 ML VIAL IV ONE (15:00)
[2020-08-26] MEDS ORDERED: LIDOCAINE WITH 8.4% SOD BICARB 3 ML DISP.SYRIN. IJ ONE (15:00)
--- NOTE | 2020-08-26 15:02 | RAD ---
Procedure: CT-guided abdominal drain placement Clinical Indication: Adult male with left upper quadrant abdominal abscess Sedation: Conscious sedation was administered with a total intraprocedural [id number]-[id number] time of 22 minutes. The patient was monitored by a qualified independent observer throughout the time of sedation. Please refer to the medical record for exact doses of medications utilized to achieve moderate sedation. Antibiotics: None Sterility: The procedure was performed in its entirety using appropriate elements of sterile technique. Consent: The procedure was explained in its entirety to the patient or the patients designated care support representative by a member of the treatment team, including a discussion of the risks, benefits and commonly accepted alternatives to the procedure, as well as the expected consequences of no therapy whatsoever. Discussion of the risks included, but was not limited to, those that are most frequent and those that are rare but possibly severe or life-threatening, as well as the possibility of unforeseen complications. Technique and Findings: Following informed consent, the patient was prepped and draped in usual sterile fashion. Preliminary CT scan of the area of interest was performed. 1% lidocaine was used to achieve local anesthesia over the area of interest. A small dermatotomy was made. Under periodic CT surveillance, a 19-gauge needle guide was advanced towards the area of interest and fely pus was aspirated. The needle guide was then exchanged over wire for a 12 [place] pigtail drainage catheter which was sutured to the skin and placed to bulb drainage. Specimen was sent for microbiologic analysis. Complications: No immediate Impression: 1. CT-guided left upper quadrant abdominal drain placement as described. PQRS Compliance Statement: One or more of the following individualized dose reduction techniques were utilized for this examination: 1. Automated exposure control 2. Adjustment of the mA and/or kV according to patient size 3. Use of iterative reconstruction technique
--- NOTE | 2020-08-26 16:06 | PATHOLOGY ---
[facility] Accession Number: [id number] . 01 Material submitted: . stomach - STOMACH . 01 Clinical history: . GASTRIC CANCER . 02 Frozen section diagnosis: . INTRAOPERATIVE CONSULTATION WITH GROSS IMPRESSION: Total gastrectomy and attached omentum, resection: - Thickened erythematous gastric rugae of proximal and middle gastric fundus - no discrete tumor mass identified. . The results are displayed to Dr. Elder in the pathology area. The specimen is fixed in formalin prior to additional sectioning. . (JPM:pit 08/18/2020) . INTRAOPERATIVE CONSULTATION GROSS DESCRIPTION: The specimen is received fresh and is designated "stomach". This consists of a total gastrectomy with attached lesser curvature and greater curvature fat and large portion of omentum. The stomach measures 46 cm in length along the greater curvature, and 18 cm in length along the lesser curvature. The proximal (gastroesophageal junction) margin is open. The distal (duodenal margin) is stapled closed. The gastric serosa is reddened and erythematous. There are two small slightly raised escalante nodules of the anterior serosa near the proximal margin measuring up to 0.3 cm in diameter. The serosal nodules are inked with blue ink. The proximal (gastroesophageal junction) margin is inked with black ink. The lesser curvature fat measures up to 4.5 cm in thickness. The greater curvature fat measures up to 8 cm in thickness. The segment is opened along the greater curvature. The gastric rugae of the proximal and middle fundus are thickened escalante-red and erythematous. However, there is no obvious discrete focal tumor mass present. The underlying muscular wall appears thin and rubbery and is not thickened. The mucosa of the antral region is escalante, flattened and slightly erythematous and again discloses no discrete masses. There are no obvious enlarged lymph nodes within the attached lesser curvature and greater curvature fat. The portion of omentum attached to the greater curvature measures 45.5 cm in length and up to 14.0 cm in width. There are no discrete masses identified within the omentum. (JPM:pit/ian 08/22/2020) . Intraoperative consultation performed at [facility], [address] [place] [id number]. JAY/RUTH . 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 - Focal tumor involvement of proximal gastric margin of resection. - Distal (duodenal) margin of resection negative for tumor. - No tumor lymphovascular invasion identified. - Rare isolated tumor cells identified within 6 of 20 perigastric lymph nodes. - Eight gastric serosal lymph nodes negative for tumor. - Helicobacter pylori active chronic gastritis, moderate to marked, with focal intestinal metaplasia. . (JPM:ian/nahomi; 08/22/2020) . . SURGICAL PATHOLOGY CANCER CASE SUMMARY Protocol posting date: November 2019 . STOMACH: Procedure ___ Total gastrectomy Tumor Site ___ Gastric fundus Tumor Size Greatest dimension: 2.4 cm Histologic Type ___ Adenocarcinoma ___ Poorly cohesive carcinoma Histologic Grade ___ G3: Poorly-differentiated, undifferentiated Tumor Extension ___ Tumor invades the lamina propria and muscularis mucosa Margins Proximal Margin ___ Focally involved by carcinoma Distal Margin ___ Uninvolved by invasive carcinoma Omental (Radial) Margins ___ Uninvolved by invasive carcinoma Treatment Effect ___ No known presurgical therapy Lymphovascular Invasion ___ Not identified Perineural invasion ___ Not identified Regional Lymph Nodes Number of Lymph Nodes Involved: 6 perigastric lymph nodes reveal rare isolated tumor cells Number of Lymph Nodes Examined: 28 . Pathologic Stage Classification (pTNM, AJCC 8th Edition) Primary Tumor (pT) ___ pT1a: Tumor invades lamina propria and muscularis mucosa Regional Lymph Nodes (pN) ___ pN0: No regional lymph node metastasis + Additional Pathologic Findings + ___ Helicobacter pylori-type gastritis (MARGARITA/david; 08/25/2020) QMS 08/26/2020 1526 Local . 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 There is focal microscopic tumor involvement of the proximal gastric margin of resection. Immunoperoxidase stains for AE1/AE3 are obtained on multiple blocks to determine extent of tumor invasion and presence or absence of yuriy metastasis and yield the following results: AE1/AE3 (A4): Single lymph node negative for tumor cells AE1/AE3 (A6): Tumor invasion limited to lamina propria and muscularis mucosa; rare isolated tumor cells identified within two of two perigastric lymph nodes AE1/AE3 (A7): Tumor invasion limited to lamina propria and muscularis mucosa; rare isolated tumor cells identified within two of two perigastric lymph nodes AE1/AE3 (A8): Tumor invasion limited to lamina propria and muscularis mucosa; single perigastric lymph node negative for tumor cells AE1/AE3 (A9): Tumor invasion limited to lamina propria and muscularis mucosa AE1/AE3 (A13): Two lymph nodes negative for tumor cells AE1/AE3 (A14): Single lymph node negative for tumor cells AE1/AE3 (A15): Two lymph nodes negative for tumor cells AE1/AE3 (A16): Two lymph nodes negative for tumor cells AE1/AE3 (A17): Single lymph node negative for tumor cells AE1/AE3 (A30): Rare isolated tumor cell identified within one of six lymph nodes AE1/AE3 (A31): Four lymph nodes negative for tumor cells AE1/AE3 (A32): Rare isolated tumor cell identified within one of one lymph node AE1/AE3 (A33): Three lymph nodes negative for tumor cells . These immunostains confirm that the tumor invasion is limited to lamina propria and muscularis mucosa. There is no evidence of tumor invasion of submucosa or muscularis propria. There are eight gastric serosal lymph nodes which are negative for tumor cells. There are rare isolated tumor cells identified within six of twenty perigastric lymph nodes. . An Immunoperoxidase stain for Helicobacter is also obtained on block A28 and reveals numerous Helicobacter organisms. . The case is also examined by Dr. Gil, who concurs with the diagnosis. The results are reported to Dr. Elder on 08/25/20. (JPM:pit 08/25/2020) . Immunoperoxidase performed: AE1/AE3 performed on A4, A6, A7, A8, A9, A13. A14, A15, A16, A17, A30, A31, A32, A33 and an immunostain for H. pylori on A28 . 02 Electronically signed: . Chivo Nino MD, Pathologist NPI- [id number] . 01 Gross description: . SEE FROZEN SECTION FOR INTRAOPERATICE CONSULTATION GROSS DESCRIPTION . After extended fixation, there is a patchy area of ortiz-escalante roughening of the mucosa identified near the proximal margin measuring 2.4 x 2.0 cm, which appears to grossly approach the inked margin (see attached gross photograph). The posterior serosa displays three pale escalante nodules ranging in size from 0.1 to 0.5 cm. Sectioning through the lesser curvature fat reveals 10 readily identifiable lymph nodes ranging in size from 0.3 to 0.9 cm in maximum dimensions. Sectioning through the greater curvature fat reveals three possible lymph nodes ranging in size from 0.5 to 0.6 cm in maximum dimensions. Sectioning through the omentum reveals bright yellow, lobulated cut surfaces. There are several indurated areas, however, no distinct nodules or lesions are noted grossly. The specimen is submitted representatively as follows: . A1-A2 perpendicular sections through proximal margin into prominent rugae A3-A5 remainder of proximal margin (black ink), en face A6-A9 entire aforementioned roughened patch near proximal margin to show relationship with proximal margin A10-A11 distal margin, en face A12-A14 anterior serosal nodules A15-A17 posterior serosal nodules A18-A21 manufacturer's representative sections of prominent rugae from proximal anterior aspect A22-A25 manufacturer's representative sections of prominent rugae from proximal posterior aspect A26 manufacturer's representative sections of mucosa from mid anterior aspect A27 manufacturer's representative sections of mucosa from mid posterior aspect A28 manufacturer's representative sections of mucosa from distal anterior aspect A29 manufacturer's representative sections of mucosa from distal posterior aspect A30-A31 intact lymph nodes from lesser curvature fat A32 one bisected lymph node from lesser curvature fat A33 intact possible lymph nodes from greater curvature fat A34-A35 manufacturer's representative sections of omentum. . Gross photographs are taken. (CAA; 08/20/2020) QAC/QTP 08/22/2020 1459 Local . 02 Pathologist provided ICD-10: C16.1, K29.50, B96.81 . 02 CPT . 046236, 416451, [id number], [id number] Specimen Comment: A courtesy copy of this report has been sent to [phone] Specimen Comment: Report sent to Performed at: 01 [facility] [address] [facility] [place] [address], [place] [id number] MD Cristian Armando MD Phone: [phone] Performed at: 02 [facility] [address] [place] [id number] MD Chivo Nino MD Phone: [phone]
[2020-08-26] MEDS: TAMSULOSIN 0.4 MG CAP.ER.24H. PO SCH (20:36)
[2020-08-27] MEDS: PIPERACILLIN/TAZOBACTAM 3.375 GM in IV NORMAL SALINE 50ML 50 ML IV SCH ×5 (00:15→23:53)
[2020-08-27 03:08] VITALS: BP 166/99
[2020-08-27 07:00] VITALS: BP 145/85
[2020-08-27] MEDS: FAMOTIDINE 20 MG/2 ML VIAL IVP SCH ×2 (08:38→20:44)
[2020-08-27] MEDS: HEPARIN for SUB-Q USE 5,000 UNIT/ML VIAL. SQ SCH ×2 (08:47→20:50)
--- NOTE | 2020-08-27 09:18 | PDOC ---
SURGICAL PROGRESS NOTE DATE: 08/27/20 TIME: 09:17 Subjective resting pain managed Vital Signs Vital Signs Date Time Temp Pulse Resp B/P (MAP) Pulse Ox O2 Delivery O2 Flow Rate FiO2 08/27/20 07:00 98.6 58 18 145/85 (105) 93 Room Air 98.6 08/26/20 15:00 2.0 I&O Intake and Output 08/27/20 07:00 Intake Total 1050 ml Output Total 1835 ml Balance -785 ml IV Total 1050 ml Output Urine Total 1350 ml Gastric Drainage Total 300 ml Drainage Total 185 ml General: Cooperative, No acute distress Abdomen: Soft, Other (drains in place, dominique purulent ) Labs Laboratory Tests Test 08/26/20 12:20 Prothrombin Time 13.6 SEC (11.7-14.0) Prothromb Time International Ratio 1.1 (0.8-1.1) Laboratory Tests Test 08/26/20 12:20 Prothrombin Time 13.6 SEC (11.7-14.0) Prothromb Time International Ratio 1.1 (0.8-1.1) Problem List will continue drains, NG will start TPN for ongoing nutrition needs Justicifation of Admission Dx: Justifications for Admission: Justification of Admission Dx: Yes CHF: Hemodynamic Instability MANUELA ALVES APRN Aug 27, 2020 09:18
--- NOTE | 2020-08-27 10:01 | NUR ---
SW following. Discussed with RN, oncology and IR consult. Pt needing PICC line placed for TPN. Currently has J tube, NG tube, DBA MANAGER. No ready for discharge. CARMITA will continue to follow.
[2020-08-27] MEDS ORDERED: LIDOCAINE WITH 8.4% SOD BICARB 3 ML DISP.SYRIN. ONE (10:22)
[2020-08-27 11:00] VITALS: BP 132/80
[2020-08-27] MEDS ORDERED: LIDOCAINE WITH 8.4% SOD BICARB 3 ML DISP.SYRIN. INJ ONE (11:00)
[2020-08-27] MEDS: AMINO AC 3%/ELECTROLYTE/GLYCER 1,000 ML IV SCH ×2 (11:47→17:23)
[2020-08-27 14:48] LABS: CALCIUM 8.1 mg/dL (8.5-10.1); CREATININE 0.7 mg/dL (0.7-1.3); GFR 116.2; MAGNESIUM 2.3 mg/dL (1.8-2.4); PHOSPHORUS 3.5 mg/dL (2.6-4.7); POTASSIUM 3.8 mmol/L (3.5-5.1)
--- NOTE | 2020-08-27 14:52 | RAD ---
Procedure: Upper extremity PICC line placement Clinical Indication: Adult male requiring central venous access Sedation: Local anesthesia only was provided Antibiotics: None Fluoro Time: 0.3 minutes, images: 1 Contrast: None Sterility: All elements of maximal sterile barrier technique including the use of a cap, mask, sterile gown, sterile gloves, large sterile sheet, appropriate hand hygiene, and 2% chlorhexidine for cutaneous antisepsis (or acceptable alternative antiseptic per current guidelines) were followed for this procedure. Consent: The procedure was explained in its entirety to the patient or the patients designated franchise sales representative by a member of the treatment team, including a discussion of the risks, benefits and commonly accepted alternatives to the procedure, as well as the expected consequences of no therapy whatsoever. Discussion of the risks included, but was not limited to, those that are most frequent and those that are rare but possibly severe or life-threatening, as well as the possibility of unforeseen complications. Technique and Findings: Following informed consent, the patient was prepped and draped in the usual sterile fashion. Ultrasound interrogation of the right arm revealed patency and compressibility of the right basilic vein. A hard copy ultrasound image was recorded. 1% Lidocaine was used to achieve local anesthesia and a 21-gauge micropuncture needle was used to gain access to the targeted vein. The needle was exchanged over wire for a 5 Thai peel-away sheath which was used to deploy a PICC line under fluoroscopic guidance such that the distal tip resided at the cavoatrial junction. The catheter flushed and aspirated with ease and was sutured to the skin. Complications: No immediate Impression: 1. Ultrasound guided PICC line placement as described.
[2020-08-27 15:00] VITALS: BP 140/82
[2020-08-27] MEDS: TPN PER PHARMACY MC PRN (16:12)
--- NOTE | 2020-08-27 16:12 | NUR ---
Pharmacy TPN Dosing Note S: DURGA RICHARD is a 55 year old M Currently receiving Central Continuous TPN started 08/27/20 B:Pertinent PMH: gastric cancer Height: 5 feet, 4 inches Weight: 79.7 kg Current diet: NPO LABS: Sodium: 136 Potassium: 3.8 Chloride: 102 Calcium: 8.1 Corrected Calcium: 9.78 Magnesium: 2.3 CO2: 22 SCr: 0.7 Glucose: 115 Albumin: 1.9 AST: 29 ALT: 31 TPN FORMULA: TPN TYPE: Central Continuous AMINO ACIDS: 95 gm DEXTROSE: 250 gm LIPIDS: 30 gm SODIUM CHLORIDE: 90 mEq POTASSIUM CHLORIDE: 50 mEq POTASSIUM PHOSPHATE: 13.6 mmol MAGNESIUM: 10 mEq CALCIUM: 10 mEq MULTIPLE VITAMIN: 10 ml TRACE ELEMENTS: 1 ml(s) TPN PLAN: Macros per RD recommendations. Starting standard lytes in TPN as all are WNL. TG 243 - will recheck in a few days. BMP, Mag and Phos in AM. R: Begin TPN as noted above. Will monitor electrolytes, glucose, and tolerance to TPN. DENITA MOYER [facility], 08/27/20 [id number]
--- NOTE | 2020-08-27 16:24 | PDOC2 ---
CONSULT Date of Consult Date of Consult DATE: 08/27/20 TIME: 16:14 Reason for Consult Reason for Consult: Resected gastric cancer. Discussion of adjuvant chemotherapy Referring Physician Referring Physician: Dr. Elder Identification/Chief Complaint Chief Complaint Gastric cancer Source Source: Chart review, Patient History of Present Illness Reason for Visit: Sean Villa is a 55-year-old male who has been admitted to the hospital for surgical resection of gastric cancer. He was recently diagnosed with diffuse type gastric cancer. He was admitted and underwent total gastrectomy with renard en y reconstruction and J-tube placement by Dr. Elder on 08/18/2020. Surgical pathology is still pending. Oncology consultation has been sought to discuss adjuvant chemotherapy given the patient resected gastric cancer. Patient reports no additional concerns at this time. He continues to receive nutrition through J-tube. He denies a family history of cancer. Current Medications Current Medications Current Medications Ondansetron HCl (Zofran) 4 mg PRN Q6HRS PRN IV NAUSEA/VOMITING; Start 08/18/20 at 07:00; Stop 08/19/20 at 06:59; Status DC Fentanyl Citrate (Fentanyl 2ml Vial) 25 mcg PRN Q5MIN PRN IV MILD PAIN 1-3 Last administered on 08/18/20at 15:20; Start 08/18/20 at 07:00; Stop 08/19/20 at 06:59; Status DC Fentanyl Citrate (Fentanyl 2ml Vial) 50 mcg PRN Q5MIN PRN IV MODERATE TO SEVERE PAIN; Start 08/18/20 at 07:00; Stop 08/19/20 at 06:59; Status DC Morphine Sulfate (Morphine Sulfate) 1 mg PRN Q10MIN PRN IV SEVERE PAIN 7-10; Start 08/18/20 at 07:00; Stop 08/19/20 at 06:59; Status DC Ringer's Solution 1,000 ml @ 30 mls/hr Q24H IV Last administered on 08/18/20at 08:48; Start 08/18/20 at 07:00; Stop 08/18/20 at 18:59; Status DC Lidocaine HCl (Xylocaine-Mpf 1% 2ml Vial) 2 ml PRN 1X PRN ID PRIOR TO IV START; Start 08/18/20 at 07:00; Stop 08/19/20 at 06:59; Status DC Hydromorphone HCl (Dilaudid) 0.5 mg PRN Q10MIN PRN IV SEV PAIN, Second choice; Start 08/18/20 at 07:00; Stop 08/19/20 at 06:59; Status DC Prochlorperazine Edisylate (Compazine) 5 mg PACU PRN PRN IV NAUSEA, MRX1; Start 08/18/20 at 07:00; Stop 08/19/20 at 06:59; Status DC Cefoxitin Sodium (Mefoxin) 2 gm OC PROC PRN IVP PRE-OP Last administered on 08/18/20at 12:30; Start 08/18/20 at 06:00; Stop 08/18/20 at 18:00; Status DC Bupivacaine HCl/ Epinephrine Bitart (Sensorcain-Epi 0.5%-1:[id number] Mpf) 30 ml 1X ONCE INJ ; Start 08/18/20 at 06:00; Stop 08/18/20 at 06:01; Status DC Propofol (Diprivan) 200 mg STK-MED ONCE IV ; Start 08/18/20 at 08:51; Stop 08/18/20 at 08:52; Status DC Lidocaine HCl (Lidocaine Pf 2% Vial) 5 ml STK-MED ONCE .ROUTE ; Start 08/18/20 at 08:51; Stop 08/18/20 at 08:52; Status DC Rocuronium [place] (Zemuron) 50 mg STK-MED ONCE .ROUTE ; Start 08/18/20 at 08:52; Stop 08/18/20 at 08:52; Status DC Midazolam HCl (Versed) 2 mg STK-MED ONCE .ROUTE ; Start 08/18/20 at 08:52; Stop 08/18/20 at 08:52; Status DC Fentanyl Citrate (Fentanyl 5ml Vial) 250 mcg STK-MED ONCE .ROUTE ; Start at 08:52; Stop 08/18/20 at 08:52; Status DC Bupivacaine HCl (Sensorcaine-Mpf 0.25%) 10 ml STK-MED ONCE .ROUTE ; Start 1 at 09:12; Stop 08/18/20 at 09:12; Status DC Ondansetron HCl (Zofran) 4 mg STK-MED ONCE .ROUTE ; Start 08/18/20 at 09:58; Stop 08/18/20 at 09:58; Status DC Dexamethasone Sodium Phosphate (Decadron) 4 mg STK-MED ONCE .ROUTE ; Start 08/18/20 at 09:58; Stop 08/18/20 at 09:58; Status DC Phenylephrine HCl (Surya-Synephrine Inj) 10 mg STK-MED ONCE .ROUTE ; Start 08/18/20 at 10:16; Stop 08/18/20 at 10:16; Status DC Rocuronium [place] (Zemuron) 50 mg STK-MED ONCE .ROUTE ; Start 08/18/20 at 10:34; Stop 08/18/20 at 10:34; Status DC Phenylephrine HCl (Surya-Synephrine Inj) 10 mg STK-MED ONCE .ROUTE ; Start 08/18/20 at 10:52; Stop 08/18/20 at 10:52; Status DC Phenylephrine HCl (PHENYLEPHRINE in 0.9% NACL PF) 1 mg STK-MED ONCE IV ; Start 08/18/20 at 10:52; Stop 08/18/20 at 10:53; Status DC Ephedrine Sulfate (ePHEDrine PF IN SALINE SYRINGE) 50 mg STK-MED ONCE IV ; Start 08/18/20 at 10:52; Stop 08/18/20 at 10:53; Status DC Rocuronium [place] (Zemuron) 50 mg STK-MED ONCE .ROUTE ; Start 08/18/20 at 12:11; Stop 08/18/20 at 12:11; Status DC Sodium Chloride 36.7 ml/Fentanyl Citrate 250 mcg/ Bupivacaine HCl 8.3 ml/Epidural Dosage Infused (Pha) 50 ml @ 0 mls/hr CONT PRN EPID SEE PROTOCOL TABLE Last administered on 08/19/20at 12:48; Start 08/18/20 at 13:00; Stop 08/19/20 at 02:30; Status DC Neostigmine [place] (Neostigmine Methylsulfate) 5 mg STK-MED ONCE .ROUTE ; Start 08/18/20 at 13:14; Stop 08/18/20 at 13:14; Status DC Glycopyrrolate (Robinul) 1 mg STK-MED ONCE .ROUTE ; Start 08/18/20 at 13:14; Stop 08/18/20 at 13:14; Status DC Fentanyl Citrate (Fentanyl 2ml Vial) 100 mcg STK-MED ONCE .ROUTE ; Start 08/18/20 at 13:36; Stop 08/18/20 at 13:36; Status DC Famotidine (Pepcid Vial) 20 mg BID IVP Last administered on 08/27/20at 08:38; Start 08/18/20 at 21:00 Heparin Sodium (Porcine) (Heparin Sodium) 5,000 unit Q12HR SQ Last administered on 08/27/20at 08:47; Start 08/18/20 at 21:00 Sodium Chloride (Normal Saline Flush) 3 ml QSHIFT PRN IV AFTER MEDS AND BLOOD DRAWS; Start 08/18/20 at 13:45 Ringer's Solution 1,000 ml @ 100 mls/hr Q10H IV Last administered on 08/25/20at 05:58; Start 08/18/20 at 13:45; Stop 08/25/20 at 15:41; Status DC Naloxone HCl (Narcan) 0.4 mg PRN Q2MIN PRN IV SEE INSTRUCTIONS; Start 08/18/20 at 13:45; Stop 08/26/20 at 16:59; Status DC Sodium Chloride 1,000 ml @ 25 mls/hr Q24H IV Last administered on 08/23/20at 18:22; Start 08/18/20 at 13:45; Stop 08/25/20 at 15:41; Status DC Ondansetron HCl (Zofran) 4 mg PRN Q6HRS PRN IVP NAUSEA, 1ST CHOICE; Start 08/18/20 at 13:45 Fentanyl Citrate (Fentanyl 2ml Vial) 100 mcg STK-MED ONCE .ROUTE ; Start 08/18/20 at 15:16; Stop 08/18/20 at 15:16; Status DC Sevoflurane (Ultane) 90 ml STK-MED ONCE IH ; Start 08/18/20 at 16:00; Stop 08/18/20 at 16:00; Status DC Sodium Chloride 36.7 ml/Fentanyl Citrate 250 mcg/ Bupivacaine HCl 8.3 ml/Epidural Dosage Infused (Pha) 50 ml @ 0 mls/hr CONT PRN EPID SEE PROTOCOL TA BLE Last administered on 08/21/20at 09:19; Start 08/19/20 at 02:30; Stop 08/21/20 at 09:23; Status DC Sodium Chloride 36.7 ml/Fentanyl Citrate 250 mcg/ Bupivacaine HCl 8.3 ml/Epidural Dosage Infused (Pha) 50 ml @ 0 mls/hr CONT PRN EPID SEE PROTOCOL TABLE Last administered on 08/25/20at 06:23; Start 08/21/20 at 09:30; Stop 08/25/20 at 12:35; Status DC Ketorolac Tromethamine (Toradol 15mg Vial) 15 mg Q6HRS IVP Last administered on 08/23/20at 21:04; Start 08/22/20 at 00:00; Stop 08/24/20 at 00:05; Status DC Piperacillin Sod/ Tazobactam Sod 3.375 gm/Sodium Chloride 50 ml @ 100 mls/hr Q6HRS IV Last administered on 08/27/20at 11:46; Start 08/23/20 at 12:30 Naloxone HCl (Narcan) 0.4 mg PRN Q2MIN PRN IV SEE INSTRUCTIONS; Start 08/25/20 at 12:30 Morphine Sulfate 30 ml @ 0 mls/hr CONT PRN PRN IV PER PROTOCOL Last administered on 08/25/20at 13:02; Start 08/25/20 at 12:30 Amino Acids/ Glycerin/ Electrolytes 1,000 ml @ 80 mls/hr [id number] IV Last administered on 08/27/20at 11:47; Start 08/25/20 at 15:45; Stop 08/27/20 at 21:59 Iohexol (Omnipaque 240 Mg/ml) 30 ml 1X ONCE PO Last administered on 08/25/20at 16:15; Start 08/25/20 at 16:15; Stop 08/25/20 at 16:16; Status DC Iohexol (Omnipaque 300 Mg/ml) 75 ml 1X ONCE IV Last administered on 08/25/20at 16:15; Start 08/25/20 at 16:15; Stop 08/25/20 at 16:16; Status DC Info (CONTRAST GIVEN -- Rx MONITORING) 1 each PRN DAILY PRN MC SEE COMMENTS; Start 08/25/20 at 16:15; Stop 08/27/20 at 16:14 Tamsulosin HCl (Flomax) 0.4 mg QHS PO Last administered on 08/26/20at 20:36; Start 08/26/20 at 21:00 Lidocaine HCl (Buffered Lidocaine 1%) 3 ml Belly-Sand 9 ONCE .ROUTE ; Start 08/26/20 at 13:54; Stop 08/26/20 at 13:54; Status DC Midazolam HCl (Versed) 2 mg STK-MED ONCE .ROUTE ; Start 08/26/20 at 14:14; Stop 08/26/20 at 14:14; Status DC Fentanyl Citrate (Fentanyl 2ml Vial) 100 mcg STK-MED ONCE .ROUTE ; Start 08/26/20 at 14:14; Stop 08/26/20 at 14:14; Status DC Lidocaine HCl (Buffered Lidocaine 1%) 8 ml 1X ONCE IJ Last administered on 08/26/20at 14:58; Start 08/26/20 at 15:00; Stop 08/26/20 at 15:01; Status DC Midazolam HCl (Versed) 1 mg 1X ONCE IV Last administered on 08/26/20at 14:58; Start 08/26/20 at 15:00; Stop 08/26/20 at 15:01; Status DC Fentanyl Citrate (Fentanyl 2ml Vial) 50 mcg 1X ONCE IV Last administered on 08/26/20at 14:59; Start 08/26/20 at 15:00; Stop 08/26/20 at 15:01; Status DC Info (Tpn Per Pharmacy) 1 each PRN DAILY PRN MC SEE COMMENTS; Start 08/27/20 at 09:30 Lidocaine HCl (Buffered Lidocaine 1%) 3 ml STK-MED ONCE .ROUTE ; Start 08/27/20 at 10:22; Stop 08/27/20 at 10:22; Status DC Lidocaine HCl (Buffered Lidocaine 1%) 3 ml 1X ONCE INJ Last administered on 08/27/20at 11:07; Start 08/27/20 at 11:00; Stop 08/27/20 at 11:01; Status DC Sodium Chloride 90 meq/Potassium Chloride 50 meq/ Potassium Phosphate 13.6 mmo l/Magnesium Sulfate 10 meq/ Calcium Gluconate 10 meq/ Multivitamins 10 ml/Chromium/ Copper/Manganese/ Seleni/Zn 1 ml/ Total Parenteral Nutrition/Amino Acids/Dextrose/ Fat Emulsion Intravenous 1,512 ml @ 63 mls/hr TPN CONT IV ; Start 08/27/20 at 22:00; Stop 08/28/20 at 21:59 Active Scripts Active Reported No Known Medications Prior To Admisstion (Info) Each 1 Each MC DAILY Allergies Allergies: Coded Allergies: No Known Drug Allergies (Unverified , 08/18/20) ROS General: YES: Fatigue, Malaise PSYCHOLOGICAL ROS: YES: Anxiety; No: Hallucinations Eyes: No Eye Pain, No Itchy Eyes HEENT: No: Oral lesions, Sinus pain ALLERGY AND IMMUNOLOGY: No: Nasal Congestion, Post Nasal Drip Hematological and Lymphatic: No: Brusing, Night Sweats ENDOCRINE: YES: Malaise/lethargy; No: Mood Swings Respiratory: No: Cough, Shortness of breath, SOB with excertion Cardiovascular: No Chest Pain Gastrointestinal: Yes Nausea, Yes Abdominal Pain; No Vomiting, No Diarrhea, No Constipation Genitourinary: No Dysuria, No Flank Pain Musculoskeletal: No Gait Disturbance, No Joint Pain Neurological: No Behavorial Changes, No Bowel/Bladder ControlChng Skin: No Dry Skin, No Hair Changes Physical Exam General: Alert, Oriented X3 HEENT: Atraumatic Lungs: Clear to auscultation Heart: Regular rate, Normal S1, Normal S2 Abdomen: Normal bowel sounds Extremities: No clubbing, No cyanosis Skin: No rashes Neuro: Normal speech Psych/Mental Status: Mental status NL MUSCULOSKELETAL: No joint tenderness Vitals VITALS Vital Signs Date Time Temp Pulse Resp B/P (MAP) Pulse Ox O2 Delivery O2 Flow Rate FiO2 08/27/20 15:00 98.0 68 18 140/82 (101) 92 Room Air 98.0 08/26/20 15:00 2.0 Labs Labs Laboratory Tests Test 08/26/20 12:20 08/27/20 14:19 Prothrombin Time 13.6 SEC (11.7-14.0) Prothromb Time International Ratio 1.1 (0.8-1.1) Sodium Level 136 mmol/L (136-145) Potassium Level 3.8 mmol/L (3.5-5.1) Chloride Level 102 mmol/L (98-107) Carbon Dioxide Level 22 mmol/L (21-32) Anion Gap 12 (6-14) Blood Urea Nitrogen 12 mg/dL (8-26) Creatinine 0.7 mg/dL (0.7-1.3) Estimated GFR (Cockcroft-Gault) 116.2 Glucose Level 115 mg/dL (70-99) Calcium Level 8.1 mg/dL (8.5-10.1) Phosphorus Level 3.5 mg/dL (2.6-4.7) Magnesium Level 2.3 mg/dL (1.8-2.4) Triglycerides Level 243 mg/dL (0-150) Laboratory Tests Test 08/27/20 14:19 Sodium Level 136 mmol/L (136-145) Potassium Level 3.8 mmol/L (3.5-5.1) Chloride Level 102 mmol/L (98-107) Carbon Dioxide Level 22 mmol/L (21-32) Anion Gap 12 (6-14) Blood Urea Nitrogen 12 mg/dL (8-26) Creatinine 0.7 mg/dL (0.7-1.3) Estimated GFR (Cockcroft-Gault) 116.2 Glucose Level 115 mg/dL (70-99) Calcium Level 8.1 mg/dL (8.5-10.1) Phosphorus Level 3.5 mg/dL (2.6-4.7) Magnesium Level 2.3 mg/dL (1.8-2.4) Triglycerides Level 243 mg/dL (0-150) Assessment/Plan Assessment/Plan Assessment: Gastric cancer, diffuse type Acute blood loss anemia Recommendations: -I reviewed the patient's present history, radiology and discussed the management of resected gastric cancer -We discussed the role of adjuvant chemotherapy and surgically resected gastric cancer and the potential benefit of limiting micrometastatic disease and improving odds of disease recurrence and survival in patients with T3 N0 or node positive gastric cancer. I recommended deferring further discussion on specifics of adjuvant chemotherapy until the results of surgical pathology are available -We will arrange for follow-up in my office 4 weeks from the date of his surgery to continue discussion on adjuvant chemotherapy. -Plan 12 cycles of [id number] as adjuvant chemotherapy based on results of surgical pathology. Prefer to start adjuvant chemotherapy within 8 weeks of the day of surgery -Will discuss IV iron supplementation as outpatient if headache continues to show anemia, suggestive of iron deficiency -I recommended continued recovery at this time from his recent surgery -Rest per Dr. Elder Thank you for the consult. Please call with any questions or concerns Leonardo Saba MD Medical Oncology/Hematology Ph: [phone] DELLA SABA MD Aug 27, 2020 16:24
[2020-08-27 19:00] VITALS: BP 140/85
[2020-08-27] MEDS: TAMSULOSIN 0.4 MG CAP.ER.24H. PO SCH (20:50)
[2020-08-27] MEDS ORDERED: AMINO ACID IV SCH (22:00)
[2020-08-27] MEDS ORDERED: TOTAL PARENTERAL NUTRITION IV SCH (22:00)
[2020-08-27] MEDS ORDERED: DEXTROSE 70% IV SCH (22:00)
[2020-08-27] MEDS ORDERED: [UNRECOGNIZED DRUG - OTHER] IV SCH (22:00)
[2020-08-27 23:00] VITALS: BP 139/83
[2020-08-28 03:00] VITALS: BP 128/80
[2020-08-28 04:32] LABS: CALCIUM 8.3 mg/dL (8.5-10.1); CREATININE 0.8 mg/dL (0.7-1.3); GFR 99.6; MAGNESIUM 2.5 mg/dL (1.8-2.4); PHOSPHORUS 3.6 mg/dL (2.6-4.7); POTASSIUM 3.6 mmol/L (3.5-5.1)
[2020-08-28] MEDS: PIPERACILLIN/TAZOBACTAM 3.375 GM in IV NORMAL SALINE 50ML 50 ML IV SCH ×3 (05:50→18:20)
[2020-08-28 07:00] VITALS: BP 142/76
[2020-08-28] MEDS: FAMOTIDINE 20 MG/2 ML VIAL IVP SCH ×2 (08:45→21:53)
[2020-08-28] MEDS: HEPARIN for SUB-Q USE 5,000 UNIT/ML VIAL. SQ SCH ×2 (08:46→22:08)
--- NOTE | 2020-08-28 08:55 | PDOC ---
SURGICAL PROGRESS NOTE DATE: 08/28/20 TIME: 08:54 Subjective sitting on side of bed pain managed Vital Signs Vital Signs Date Time Temp Pulse Resp B/P (MAP) Pulse Ox O2 Delivery O2 Flow Rate FiO2 08/28/20 08:00 Room Air 08/28/20 07:00 97.7 62 20 142/76 (98) 93 97.7 I&O Intake and Output 08/28/20 07:00 Intake Total 2000 ml Output Total 1340 ml Balance 660 ml IV Total 2000 ml Output Urine Total 1300 ml Drainage Total 40 ml PATIENT HAS A OSCAR: Yes General: Alert, Cooperative HEENT: Other (ng in place) Abdomen: Soft, Other (drains purulent ) Labs Laboratory Tests Test 08/26/20 12:20 08/27/20 14:19 08/28/20 04:10 Prothrombin Time 13.6 SEC (11.7-14.0) Prothromb Time International Ratio 1.1 (0.8-1.1) Sodium Level 136 mmol/L (136-145) 138 mmol/L (136-145) Potassium Level 3.8 mmol/L (3.5-5.1) 3.6 mmol/L (3.5-5.1) Chloride Level 102 mmol/L (98-107) 103 mmol/L (98-107) Carbon Dioxide Level 22 mmol/L (21-32) 25 mmol/L (21-32) Anion Gap 12 (6-14) 10 (6-14) Blood Urea Nitrogen 12 mg/dL (8-26) 14 mg/dL (8-26) Creatinine 0.7 mg/dL (0.7-1.3) 0.8 mg/dL (0.7-1.3) Estimated GFR (Cockcroft-Gault) 116.2 99.6 Glucose Level 115 mg/dL (70-99) 137 mg/dL (70-99) Calcium Level 8.1 mg/dL (8.5-10.1) 8.3 mg/dL (8.5-10.1) Phosphorus Level 3.5 mg/dL (2.6-4.7) 3.6 mg/dL (2.6-4.7) Magnesium Level 2.3 mg/dL (1.8-2.4) 2.5 mg/dL (1.8-2.4) Triglycerides Level 243 mg/dL (0-150) Laboratory Tests Test 08/27/20 14:19 08/28/20 04:10 Sodium Level 136 mmol/L (136-145) 138 mmol/L (136-145) Potassium Level 3.8 mmol/L (3.5-5.1) 3.6 mmol/L (3.5-5.1) Chloride Level 102 mmol/L (98-107) 103 mmol/L (98-107) Carbon Dioxide Level 22 mmol/L (21-32) 25 mmol/L (21-32) Anion Gap 12 (6-14) 10 (6-14) Blood Urea Nitrogen 12 mg/dL (8-26) 14 mg/dL (8-26) Creatinine 0.7 mg/dL (0.7-1.3) 0.8 mg/dL (0.7-1.3) Estimated GFR (Cockcroft-Gault) 116.2 99.6 Glucose Level 115 mg/dL (70-99) 137 mg/dL (70-99) Calcium Level 8.1 mg/dL (8.5-10.1) 8.3 mg/dL (8.5-10.1) Phosphorus Level 3.5 mg/dL (2.6-4.7) 3.6 mg/dL (2.6-4.7) Magnesium Level 2.3 mg/dL (1.8-2.4) 2.5 mg/dL (1.8-2.4) Triglycerides Level 243 mg/dL (0-150) Assessment/Plan supportive care NG, tpn, drains Justicifation of Admission Dx: Justifications for Admission: Justification of Admission Dx: Yes CHF: Hemodynamic Instability MANUELA ALVES STORAGE WHARFAGE CLERK Aug 28, 2020 08:55
[2020-08-28] MEDS: MORPHINE SULFATE 30 ML IV PRN (10:42)
[2020-08-28] MEDS: TPN PER PHARMACY MC PRN (10:51)
[2020-08-28 11:11] VITALS: BP 132/78
--- NOTE | 2020-08-28 11:15 | NUR ---
CARMITA following. Discussed with RN, pt from home, room air, NPO. Pt started on TPN last night, NG tube, NEWS PRODUCTION ASSISTANT, 2 JUNIOR drains, J tube. CARMITA spoke with Chitra Khan (surgical PILL PACKER) RE referral to LT[facility]. Chitra advised this would be fine, but pt is not ready to discharge yet. CARMITA met with pt and pt's family at bedside (no isolation precautions at the time), pt agreeable to referral to [facility] - Understands his insurance has to approve. CARMITA faxed referral to [facility], awaiting acceptance decision. Will hold off on submitting for insurance auth until surgical team advises when pt is closer to discharge. RN notified. CARMITA will continue to follow. Addendum: 08/28/20 at 1333 by FAZAL VIZCARRA Pt clinically accepted at [facility]. Await submitting for insurance auth until pt is closer to discharge. RN notified.
--- NOTE | 2020-08-28 11:18 | NUR ---
Pharmacy TPN Dosing Note S: DURGA RICHARD is a 55 year old M Currently receiving Central Continuous TPN started 08/27/20 B:Pertinent PMH: gastric cancer LABS: Sodium: 138 Potassium: 3.6 Chloride: 103 Calcium: 8.3 Corrected Calcium: 9.98 Magnesium: 2.5 CO2: 25 SCr: 0.8 Glucose: 137 Albumin: 1.9 AST: 29 ALT: 31 TPN FORMULA: TPN TYPE: Central Continuous AMINO ACIDS: 95 gm DEXTROSE: 250 gm LIPIDS: 30 gm SODIUM CHLORIDE: 90 mEq SODIUM ACETATE: -- mEq SODIUM PHOSPHATE: -- mmol POTASSIUM CHLORIDE: 50 mEq POTASSIUM ACETATE: -- mEq POTASSIUM PHOSPHATE: 13.6 mmol MAGNESIUM: 8 mEq CALCIUM: 10 mEq INSULIN: -- units MULTIPLE VITAMIN: 10 ml TRACE ELEMENTS: 1 ml(s) TPN PLAN: 08/28 slight increase in MAG level, so adjusted in TPN R: Continue TPN Will monitor electrolytes, glucose, and tolerance to TPN. [facility], 08/28/20 1118
[2020-08-28] MEDS ORDERED: PHENOL ORAL SPRAY 177ML BOTTLE. PO PRN (14:15)
[2020-08-28 15:31] VITALS: BP 135/81
[2020-08-28 19:00] VITALS: BP 129/88
[2020-08-28] MEDS: TAMSULOSIN 0.4 MG CAP.ER.24H. PO SCH (21:55)
[2020-08-28] MEDS ORDERED: AMINO ACID IV SCH (22:00)
[2020-08-28] MEDS ORDERED: TOTAL PARENTERAL NUTRITION IV SCH (22:00)
[2020-08-28] MEDS ORDERED: [UNRECOGNIZED DRUG - OTHER] IV SCH (22:00)
[2020-08-28] MEDS ORDERED: DEXTROSE 70% IV SCH (22:00)
[2020-08-28 23:00] VITALS: BP 134/81
[2020-08-29] MEDS: PIPERACILLIN/TAZOBACTAM 3.375 GM in IV NORMAL SALINE 50ML 50 ML IV SCH ×4 (00:10→17:57)
[2020-08-29 03:00] VITALS: BP 129/76
[2020-08-29 06:48] LABS: CALCIUM 8.4 mg/dL (8.5-10.1); CREATININE 0.6 mg/dL (0.7-1.3); GFR 138.9; MAGNESIUM 2.2 mg/dL (1.8-2.4); PHOSPHORUS 3.4 mg/dL (2.6-4.7); POTASSIUM 4.1 mmol/L (3.5-5.1)
[2020-08-29 07:00] VITALS: BP 120/82
[2020-08-29] MEDS: FAMOTIDINE 20 MG/2 ML VIAL IVP SCH ×2 (08:16→21:24)
[2020-08-29] MEDS: HEPARIN for SUB-Q USE 5,000 UNIT/ML VIAL. SQ SCH ×2 (08:23→21:36)
--- NOTE | 2020-08-29 09:34 | PDOC ---
SURGICAL PROGRESS NOTE DATE: 08/29/20 TIME: 09:33 Subjective pain at drain site no n/v Vital Signs Vital Signs Date Time Temp Pulse Resp B/P (MAP) Pulse Ox O2 Delivery O2 Flow Rate FiO2 08/29/20 07:00 98.0 60 18 120/82 (95) 94 Room Air 98.0 I&O Intake and Output 08/29/20 07:00 Intake Total 1812 ml Output Total 1570 ml Balance 242 ml Intake Oral 0 ml IV Total 756 ml Other 1056 ml Output Urine Total 1500 ml Gastric Drainage Total 25 ml Drainage Total 45 ml PATIENT HAS A OSCAR: Yes General: Alert, Oriented X3, Cooperative HEENT: Other (ng in place) Abdomen: Soft, Other (drain purulent, second dominique scant ) Labs Laboratory Tests Test 08/27/20 14:19 08/28/20 04:10 08/29/20 06:00 Sodium Level 136 mmol/L (136-145) 138 mmol/L (136-145) 137 mmol/L (136-145) Potassium Level 3.8 mmol/L (3.5-5.1) 3.6 mmol/L (3.5-5.1) 4.1 mmol/L (3.5-5.1) Chloride Level 102 mmol/L (98-107) 103 mmol/L (98-107) 106 mmol/L (98-107) Carbon Dioxide Level 22 mmol/L (21-32) 25 mmol/L (21-32) 21 mmol/L (21-32) Anion Gap 12 (6-14) 10 (6-14) 10 (6-14) Blood Urea Nitrogen 12 mg/dL (8-26) 14 mg/dL (8-26) 16 mg/dL (8-26) Creatinine 0.7 mg/dL (0.7-1.3) 0.8 mg/dL (0.7-1.3) 0.6 mg/dL (0.7-1.3) Estimated GFR (Cockcroft-Gault) 116.2 99.6 138.9 Glucose Level 115 mg/dL (70-99) 137 mg/dL (70-99) 126 mg/dL (70-99) Calcium Level 8.1 mg/dL (8.5-10.1) 8.3 mg/dL (8.5-10.1) 8.4 mg/dL (8.5-10.1) Phosphorus Level 3.5 mg/dL (2.6-4.7) 3.6 mg/dL (2.6-4.7) 3.4 mg/dL (2.6-4.7) Magnesium Level 2.3 mg/dL (1.8-2.4) 2.5 mg/dL (1.8-2.4) 2.2 mg/dL (1.8-2.4) Triglycerides Level 243 mg/dL (0-150) Laboratory Tests Test 08/29/20 06:00 Sodium Level 137 mmol/L (136-145) Potassium Level 4.1 mmol/L (3.5-5.1) Chloride Level 106 mmol/L (98-107) Carbon Dioxide Level 21 mmol/L (21-32) Anion Gap 10 (6-14) Blood Urea Nitrogen 16 mg/dL (8-26) Creatinine 0.6 mg/dL (0.7-1.3) Estimated GFR (Cockcroft-Gault) 138.9 Glucose Level 126 mg/dL (70-99) Calcium Level 8.4 mg/dL (8.5-10.1) Phosphorus Level 3.4 mg/dL (2.6-4.7) Magnesium Level 2.2 mg/dL (1.8-2.4) Assessment/Plan continue current care Justicifation of Admission Dx: Justifications for Admission: Justification of Admission Dx: Yes CHF: Hemodynamic Instability MANUELA ALVES APRN Aug 29, 2020 09:34
--- NOTE | 2020-08-29 09:52 | NUR ---
SW following. Discussed with RN, surgical INTERMODAL DISPATCHER, Chitra Khan advised pt is not ready for discharge. Pt has multiple drains, TPN, NG. Pt is clinically accepted at [facility]. Submission for insurance will be done when pt is closer to being discharge ready SW will continue to follow.
[2020-08-29 10:47] VITALS: BP 117/85
[2020-08-29 14:51] VITALS: BP 124/78
[2020-08-29] MEDS: TPN PER PHARMACY MC PRN (15:21)
--- NOTE | 2020-08-29 15:22 | NUR ---
Pharmacy TPN Dosing Note S: DURGA RICHARD is a 55 year old M Currently receiving Central Continuous TPN started 08/27/20 B:Pertinent PMH: gastric cancer Height: 5 feet, 4 inches Weight: 79.7 kg Current diet: NPO LABS: Sodium: 137 Potassium: 4.1 Chloride: 106 Calcium: 8.3 Corrected Calcium: 9.98 Magnesium: 2.2 CO2: 21 SCr: 0.8 Glucose: 137 Albumin: 1.9 AST: 29 ALT: 31 TPN FORMULA: TPN TYPE: Central Continuous AMINO ACIDS: 95 gm DEXTROSE: 250 gm LIPIDS: 30 gm SODIUM CHLORIDE: 90 mEq SODIUM ACETATE: -- mEq SODIUM PHOSPHATE: -- mmol POTASSIUM CHLORIDE: 50 mEq POTASSIUM ACETATE: -- mEq POTASSIUM PHOSPHATE: 13.6 mmol MAGNESIUM: 8 mEq CALCIUM: 10 mEq INSULIN: -- units MULTIPLE VITAMIN: 10 ml TRACE ELEMENTS: 1 ml(s) TPN PLAN: LYTES STABLE, CONT SAME. R: Continue TPN AT 63ML/HR Will monitor electrolytes, glucose, and tolerance to TPN. NATALIIA HUNT [facility] [place], 08/29/20 1522
[2020-08-29 19:20] VITALS: BP 136/77
[2020-08-29] MEDS: TAMSULOSIN 0.4 MG CAP.ER.24H. PO SCH (21:24)
[2020-08-29] MEDS ORDERED: TOTAL PARENTERAL NUTRITION IV SCH (22:00)
[2020-08-29] MEDS ORDERED: DEXTROSE 70% IV SCH (22:00)
[2020-08-29] MEDS ORDERED: [UNRECOGNIZED DRUG - OTHER] IV SCH (22:00)
[2020-08-29] MEDS ORDERED: AMINO ACID IV SCH (22:00)
[2020-08-29 23:04] VITALS: BP 119/86
[2020-08-30] MEDS: PIPERACILLIN/TAZOBACTAM 3.375 GM in IV NORMAL SALINE 50ML 50 ML IV SCH ×4 (00:03→18:28)
[2020-08-30 03:14] VITALS: BP 121/84
[2020-08-30 07:05] VITALS: BP 130/80
--- NOTE | 2020-08-30 08:49 | PDOC ---
SURGICAL PROGRESS NOTE DATE: 08/30/20 TIME: 08:48 Subjective Patient states he is doing well no nausea vomiting passing flatus minimal pain Vital Signs Vital Signs Date Time Temp Pulse Resp B/P (MAP) Pulse Ox O2 Delivery O2 Flow Rate FiO2 08/30/20 07:05 97.7 54 17 130/80 (97) 96 Room Air 97.7 I&O Intake and Output 08/30/20 07:00 Intake Total 1812 ml Output Total 1280 ml Balance 532 ml Intake Oral 0 ml IV Total 756 ml Other 1056 ml Output Urine Total 1250 ml Drainage Total 30 ml PATIENT HAS A OSCAR: No General: Alert, Oriented X3, Cooperative, mild distress Abdomen: Normal bowel sounds, Soft, Other (Mild incisional tenderness wounds clean dry and intact) Labs Laboratory Tests Test 08/29/20 06:00 Sodium Level 137 mmol/L (136-145) Potassium Level 4.1 mmol/L (3.5-5.1) Chloride Level 106 mmol/L (98-107) Carbon Dioxide Level 21 mmol/L (21-32) Anion Gap 10 (6-14) Blood Urea Nitrogen 16 mg/dL (8-26) Creatinine 0.6 mg/dL (0.7-1.3) Estimated GFR (Cockcroft-Gault) 138.9 Glucose Level 126 mg/dL (70-99) Calcium Level 8.4 mg/dL (8.5-10.1) Phosphorus Level 3.4 mg/dL (2.6-4.7) Magnesium Level 2.2 mg/dL (1.8-2.4) Assessment/Plan Status post gastrectomy Patient surgically stable continue supportive care Justicifation of Admission Dx: Justifications for Admission: Justification of Admission Dx: Yes CHF: Hemodynamic Instability NIELS LIRA MD Aug 30, 2020 08:49
[2020-08-30] MEDS: FAMOTIDINE 20 MG/2 ML VIAL IVP SCH ×2 (08:59→21:48)
[2020-08-30] MEDS: HEPARIN for SUB-Q USE 5,000 UNIT/ML VIAL. SQ SCH ×2 (09:02→21:47)
[2020-08-30 09:22] LABS: CALCIUM 8.8 mg/dL (8.5-10.1); CREATININE 0.7 mg/dL (0.7-1.3); GFR 116.2; MAGNESIUM 2.3 mg/dL (1.8-2.4); PHOSPHORUS 4.1 mg/dL (2.6-4.7)
[2020-08-30 10:32] VITALS: BP 117/80
[2020-08-30] MEDS: TPN PER PHARMACY MC PRN (11:38)
--- NOTE | 2020-08-30 11:38 | NUR ---
Pharmacy TPN Dosing Note S: DURGA RICHARD is a 55 year old M Currently receiving Central Continuous TPN started 08/27/20 B:Pertinent PMH: gastric cancer, s/p total gastrectomy Height: 5 feet, 4 inches Weight: 79.7 kg Current diet: NPO LABS: Sodium: 136 Potassium: 4.0 Chloride: 105 Calcium: 8.8 Corrected Calcium: 10.48 Magnesium: 2.3 CO2: 21 SCr: 0.7 Glucose: 142 Albumin: 1.9 AST: 29 ALT: 31 TPN FORMULA: TPN TYPE: Central Continuous AMINO ACIDS: 95 gm DEXTROSE: 250 gm LIPIDS: 30 gm SODIUM CHLORIDE: 90 mEq POTASSIUM CHLORIDE: 50 mEq POTASSIUM PHOSPHATE: 13.6 mmol MAGNESIUM: 8 mEq CALCIUM: 10 mEq MULTIPLE VITAMIN: 10 ml TRACE ELEMENTS: 1 ml TPN PLAN: -Electrolytes appear WNL and stable, continue same TPN. -BMP, mag, phos tomorrow. R: Continue TPN @ current rate and with above changes. Will monitor electrolytes, glucose, and tolerance to TPN. ELOISE LATHAM [facility], 08/30/20 [id number]
[2020-08-30 14:49] VITALS: BP 125/75
[2020-08-30 19:14] VITALS: BP 127/73
[2020-08-30] MEDS: TAMSULOSIN 0.4 MG CAP.ER.24H. PO SCH (21:48)
[2020-08-30] MEDS ORDERED: [UNRECOGNIZED DRUG - OTHER] IV SCH (22:00)
[2020-08-30] MEDS ORDERED: TOTAL PARENTERAL NUTRITION IV SCH (22:00)
[2020-08-30] MEDS ORDERED: DEXTROSE 70% IV SCH (22:00)
[2020-08-30] MEDS ORDERED: AMINO ACID IV SCH (22:00)
[2020-08-30 23:09] VITALS: BP 132/74
[2020-08-31] MEDS: PIPERACILLIN/TAZOBACTAM 3.375 GM in IV NORMAL SALINE 50ML 50 ML IV SCH ×5 (00:13→23:54)
[2020-08-31 03:20] VITALS: BP 116/77
[2020-08-31 07:00] VITALS: BP 115/75
[2020-08-31] MEDS: FAMOTIDINE 20 MG/2 ML VIAL IVP SCH ×2 (08:39→22:13)
[2020-08-31] MEDS: HEPARIN for SUB-Q USE 5,000 UNIT/ML VIAL. SQ SCH ×2 (08:46→22:18)
--- NOTE | 2020-08-31 09:20 | PDOC ---
SURGICAL PROGRESS NOTE DATE: 08/31/20 TIME: 09:19 Subjective Patient doing well denies any nausea vomiting minimal pain Vital Signs Vital Signs Date Time Temp Pulse Resp B/P (MAP) Pulse Ox O2 Delivery O2 Flow Rate FiO2 08/31/20 07:00 98.1 54 18 115/75 (88) 94 Room Air 98.1 I&O Intake and Output 08/31/20 07:00 Output Total 1500 ml Balance -1500 ml Output Urine Total 1500 ml PATIENT HAS A OSCAR: No General: Alert, Oriented X3, Cooperative, mild distress Abdomen: Normal bowel sounds, Soft, Other (Mild incisional tenderness wounds clean dry and intact) Labs Laboratory Tests Test 08/30/20 08:10 Sodium Level 136 mmol/L (136-145) Potassium Level 4.0 mmol/L (3.5-5.1) Chloride Level 105 mmol/L (98-107) Carbon Dioxide Level 21 mmol/L (21-32) Anion Gap 10 (6-14) Blood Urea Nitrogen 17 mg/dL (8-26) Creatinine 0.7 mg/dL (0.7-1.3) Estimated GFR (Cockcroft-Gault) 116.2 Glucose Level 142 mg/dL (70-99) Calcium Level 8.8 mg/dL (8.5-10.1) Phosphorus Level 4.1 mg/dL (2.6-4.7) Magnesium Level 2.3 mg/dL (1.8-2.4) Assessment/Plan Status post gastrectomy patient doing well no acute changes Justicifation of Admission Dx: Justifications for Admission: Justification of Admission Dx: Yes CHF: Hemodynamic Instability NIELS LIRA MD Aug 31, 2020 09:20
[2020-08-31 10:47] VITALS: BP 117/76
[2020-08-31 10:57] LABS: CALCIUM 8.7 mg/dL (8.5-10.1); CREATININE 0.7 mg/dL (0.7-1.3); GFR 116.2; MAGNESIUM 2.3 mg/dL (1.8-2.4); POTASSIUM 4.3 mmol/L (3.5-5.1)
[2020-08-31] MEDS: TPN PER PHARMACY MC PRN (13:11)
--- NOTE | 2020-08-31 13:11 | NUR ---
Pharmacy TPN Dosing Note S: DURGA RICHARD is a 55 year old M Currently receiving Central Continuous TPN started 08/27/20 B:Pertinent PMH: gastric cancer Height: 5 feet, 4 inches Weight: 79.7 kg Current diet: NPO LABS: Sodium: 137 Potassium: 4.3 Chloride: 106 Calcium: 8.7 Corrected Calcium: 10.38 Magnesium: 2.3 CO2: 21 SCr: 0.7 Glucose: 128 Albumin: 1.9 AST: 29 ALT: 31 TPN FORMULA: TPN TYPE: Central Continuous AMINO ACIDS: 95 gm DEXTROSE: 250 gm LIPIDS: 30 gm SODIUM CHLORIDE: 90 mEq POTASSIUM CHLORIDE: 50 mEq POTASSIUM PHOSPHATE: 13.6 mmol MAGNESIUM: 8 mEq CALCIUM: 10 mEq MULTIPLE VITAMIN: 10 ml TRACE ELEMENTS: 1 ml TPN PLAN: -Electrolytes appear WNL and stable, continue same TPN. -BMP, mag, phos, TG tomorrow. R: Continue TPN @ current rate and above formula. Will monitor electrolytes, glucose, and tolerance to TPN. ELOISE LATHAM [facility], 08/31/20 1659
[2020-08-31 14:31] VITALS: BP 117/79
[2020-08-31 19:22] VITALS: BP 120/74
[2020-08-31] MEDS ORDERED: TOTAL PARENTERAL NUTRITION IV SCH (22:00)
[2020-08-31] MEDS ORDERED: DEXTROSE 70% IV SCH (22:00)
[2020-08-31] MEDS ORDERED: AMINO ACID IV SCH (22:00)
[2020-08-31] MEDS ORDERED: [UNRECOGNIZED DRUG - OTHER] IV SCH (22:00)
[2020-08-31] MEDS: TAMSULOSIN 0.4 MG CAP.ER.24H. PO SCH (22:13)
[2020-08-31 22:52] VITALS: BP 121/78
[2020-09-01 02:40] VITALS: BP 131/72
[2020-09-01] MEDS: PIPERACILLIN/TAZOBACTAM 3.375 GM in IV NORMAL SALINE 50ML 50 ML IV SCH ×3 (05:40→18:00)
[2020-09-01 06:27] LABS: MAGNESIUM 2.3 mg/dL (1.8-2.4); PHOSPHORUS 4.1 mg/dL (2.6-4.7)
[2020-09-01 06:28] LABS: ALBUMIN 2.6 g/dL (3.4-5.0); ALBUMIN/GLOBULIN RATIO 0.6 (1.0-1.7); CALCIUM 8.7 mg/dL (8.5-10.1); CREATININE 0.8 mg/dL (0.7-1.3); GFR 99.6; POTASSIUM 4.6 mmol/L (3.5-5.1); TOTAL BILIRUBIN 1.4 mg/dL (0.2-1.0); TOTAL PROTEIN 6.7 g/dL (6.4-8.2)
[2020-09-01 06:58] VITALS: BP 111/77
[2020-09-01] MEDS: HEPARIN for SUB-Q USE 5,000 UNIT/ML VIAL. SQ SCH ×2 (09:00→20:55)
--- NOTE | 2020-09-01 09:35 | PDOC ---
SURGICAL PROGRESS NOTE DATE: 09/01/20 TIME: 09:33 Subjective feeling pretty well sore throat minimal abdominal pain Vital Signs Vital Signs Date Time Temp Pulse Resp B/P (MAP) Pulse Ox O2 Delivery O2 Flow Rate FiO2 09/01/20 06:58 97.6 58 16 111/77 (88) 95 Room Air 97.6 I&O Intake and Output 09/01/20 07:00 Intake Total 0 ml Output Total 1270 ml Balance -1270 ml Intake Oral 0 ml Output Urine Total 1100 ml Gastric Drainage Total 50 ml Drainage Total 120 ml General: Alert, Oriented X3, Cooperative HEENT: Other (ng reddish--using throat spray ) Abdomen: Soft, Other (small amount of purulent drainage from jps ) Labs Laboratory Tests Test 08/31/20 09:45 09/01/20 05:50 Sodium Level 137 mmol/L (136-145) 139 mmol/L (136-145) Potassium Level 4.3 mmol/L (3.5-5.1) 4.6 mmol/L (3.5-5.1) Chloride Level 106 mmol/L (98-107) 107 mmol/L (98-107) Carbon Dioxide Level 21 mmol/L (21-32) 21 mmol/L (21-32) Anion Gap 10 (6-14) 11 (6-14) Blood Urea Nitrogen 18 mg/dL (8-26) 19 mg/dL (8-26) Creatinine 0.7 mg/dL (0.7-1.3) 0.8 mg/dL (0.7-1.3) Estimated GFR (Cockcroft-Gault) 116.2 99.6 Glucose Level 128 mg/dL (70-99) 131 mg/dL (70-99) Calcium Level 8.7 mg/dL (8.5-10.1) 8.7 mg/dL (8.5-10.1) Phosphorus Level 4.0 mg/dL (2.6-4.7) 4.1 mg/dL (2.6-4.7) Magnesium Level 2.3 mg/dL (1.8-2.4) 2.3 mg/dL (1.8-2.4) BUN/Creatinine Ratio 24 (6-20) Total Bilirubin 1.4 mg/dL (0.2-1.0) Aspartate Amino Transf (AST/SGOT) 46 U/L (15-37) Alanine Aminotransferase (ALT/SGPT) 95 U/L (16-63) Alkaline Phosphatase 129 U/L (46-116) Total Protein 6.7 g/dL (6.4-8.2) Albumin 2.6 g/dL (3.4-5.0) Albumin/Globulin Ratio 0.6 (1.0-1.7) Triglycerides Level 122 mg/dL (0-150) Laboratory Tests Test 08/31/20 09:45 09/01/20 05:50 Sodium Level 137 mmol/L (136-145) 139 mmol/L (136-145) Potassium Level 4.3 mmol/L (3.5-5.1) 4.6 mmol/L (3.5-5.1) Chloride Level 106 mmol/L (98-107) 107 mmol/L (98-107) Carbon Dioxide Level 21 mmol/L (21-32) 21 mmol/L (21-32) Anion Gap 10 (6-14) 11 (6-14) Blood Urea Nitrogen 18 mg/dL (8-26) 19 mg/dL (8-26) Creatinine 0.7 mg/dL (0.7-1.3) 0.8 mg/dL (0.7-1.3) Estimated GFR (Cockcroft-Gault) 116.2 99.6 Glucose Level 128 mg/dL (70-99) 131 mg/dL (70-99) Calcium Level 8.7 mg/dL (8.5-10.1) 8.7 mg/dL (8.5-10.1) Phosphorus Level 4.0 mg/dL (2.6-4.7) 4.1 mg/dL (2.6-4.7) Magnesium Level 2.3 mg/dL (1.8-2.4) 2.3 mg/dL (1.8-2.4) BUN/Creatinine Ratio 24 (6-20) Total Bilirubin 1.4 mg/dL (0.2-1.0) Aspartate Amino Transf (AST/SGOT) 46 U/L (15-37) Alanine Aminotransferase (ALT/SGPT) 95 U/L (16-63) Alkaline Phosphatase 129 U/L (46-116) Total Protein 6.7 g/dL (6.4-8.2) Albumin 2.6 g/dL (3.4-5.0) Albumin/Globulin Ratio 0.6 (1.0-1.7) Triglycerides Level 122 mg/dL (0-150) Problem List remove saab upper Gi with gastrografin today Justicifation of Admission Dx: Justifications for Admission: Justification of Admission Dx: Yes CHF: Hemodynamic Instability MANUELA ALVES APRN Sep 01, 2020 09:35
--- NOTE | 2020-09-01 10:03 | NUR ---
SW following. Discussed with RN, pt clinically accepted at [facility]. Surgical team not sure of anticipated dc date. director Sung Breen requested SW have [employer] submit for insurance auth. CARMITA faxed updates to [facility], requested auth submission. CARMITA will continue to follow. Addendum: 09/01/20 at 1023 by FAZAL VIZCARRA CARMITA spoke with Brittani at [facility] - she has been trying to get the REV codes for this patient. Brittani advised she has called and emailed the business office several times with no response. Unable to submit for auth without the REV codes. Discussed with Lindsay WINSLOW. CARMITA will continue to follow.
[2020-09-01 10:39] VITALS: BP 126/73
[2020-09-01] MEDS: FAMOTIDINE 20 MG/2 ML VIAL IVP SCH ×2 (11:01→20:53)
[2020-09-01] MEDS: TPN PER PHARMACY MC PRN (13:09)
--- NOTE | 2020-09-01 13:09 | NUR ---
Pharmacy TPN Dosing Note S: DURGA RICHARD is a 55 year old M Currently receiving Central Continuous TPN started 08/27/20 B:Pertinent PMH: gastric cancer Height: 5 feet, 4 inches Weight: 79.7 kg Current diet: NPO LABS: Sodium: 139 Potassium: 4.6 Chloride: 107 Calcium: 8.7 Corrected Calcium: 10.38 Magnesium: 2.3 CO2: 21 SCr: 0.8 Glucose: 131 Albumin: 1.9 AST: 46 ALT: 95 TPN FORMULA: TPN TYPE: Central Continuous AMINO ACIDS: 95 gm DEXTROSE: 250 gm LIPIDS: 30 gm SODIUM CHLORIDE: 90 mEq SODIUM ACETATE: -- mEq SODIUM PHOSPHATE: -- mmol POTASSIUM CHLORIDE: 20 mEq POTASSIUM ACETATE: -- mEq POTASSIUM PHOSPHATE: 13.6 mmol MAGNESIUM: 8 mEq CALCIUM: 10 mEq INSULIN: -- units MULTIPLE VITAMIN: 10 ml TRACE ELEMENTS: 1 ml(s) TPN PLAN: Potassium steadily trending up, will decrease from 50 to 20meq KCl BMP in the am R: Continue TPN as written above. Will monitor electrolytes, glucose, and tolerance to TPN. ROSE BRITO [facility], 09/01/20 1310
[2020-09-01] MEDS ORDERED: IOHEXOL 300 MG/ML 100ML VIAL. PO ONE (14:00)
--- NOTE | 2020-09-01 16:21 | RAD ---
Upper GI series. INDICATION: Total gastrectomy with Paulette-en-Y reconstruction. Possible proximal anastomotic leak. COMPARISON: abdomen pelvis CT with IV contrast of 08/25/2020, CT guided drainage procedure of 08/26/2020 TECHNIQUE: Water soluble oral contrast was administered following initial and acquisition and review of a chemical tester image of the abdomen. Thereafter, multiple fluoroscopic images of the upper gastrointestinal tract focused on the proximal anastomosis of the gastrectomy were acquired with the patient in the semirecumbent bilateral posterior oblique and straight lateral views. Patient was initially administered effervescent crystals before administration of oral Omnipaque and total of 14 images were acquired for procedural documentation. Total fluoroscopy time was 2.2 minutes. FINDINGS: The chemical tester image shows some residual enteric contrast throughout the large bowel which was not enough to limit the performance of the examination although it it had the potential flow-limiting evaluation. No abnormal soft tissue gas was seen. Patient's percutaneous jejunostomy tube, left upper quadrant pigtail drainage catheter in the fluid collection, and enteric tube in the proximal bowel were evident. Indwelling nasogastric tube was present, bypassed for the purposes of assessing anastomotic integrity. Patient was directly administered oral contrast material and fluoroscopic imaging of the upper gastrointestinal tract showed no evidence of an anastomotic leak despite repositioning the patient in multiple projections. Significant amount of reflux of the distal thoracic esophagus was however observed during the procedure even though the patient was semiupright throughout the study. The rest of examination on the final overhead abdominal radiograph showed normal duodenal C-loop with opacification of enteric contents. Mildly distended jejunal loops are partly opacified, measuring up to 4 cm in the left midabdomen. IMPRESSION: There is no evidence of an anastomotic leak on upper GI series, status post gastrectomy. Electronically signed by: Alisson Roque MD (09/01/2020 4:19 PM) [id number]
[2020-09-01 19:00] VITALS: BP 120/87
[2020-09-01] MEDS: TAMSULOSIN 0.4 MG CAP.ER.24H. PO SCH (20:54)
[2020-09-01] MEDS ORDERED: [UNRECOGNIZED DRUG - OTHER] IV SCH (22:00)
[2020-09-01] MEDS ORDERED: TOTAL PARENTERAL NUTRITION IV SCH (22:00)
[2020-09-01] MEDS ORDERED: DEXTROSE 70% IV SCH (22:00)
[2020-09-01] MEDS ORDERED: AMINO ACID IV SCH (22:00)
[2020-09-01 23:00] VITALS: BP 131/84
[2020-09-02] MEDS: PIPERACILLIN/TAZOBACTAM 3.375 GM in IV NORMAL SALINE 50ML 50 ML IV SCH ×3 (00:14→13:17)
[2020-09-02 03:00] VITALS: BP 121/72
[2020-09-02 07:00] VITALS: BP 107/66
[2020-09-02 08:08] LABS: CALCIUM 8.5 mg/dL (8.5-10.1); CREATININE 0.8 mg/dL (0.7-1.3); GFR 99.6; POTASSIUM 3.9 mmol/L (3.5-5.1)
--- NOTE | 2020-09-02 10:00 | NUR ---
SW following. Discussed with RN. Peter at [facility] still unable to obtain REV codes in order to submit for insurance approval. director, Sung Breen involved. CARMITA will continue to follow. Addendum: 09/02/20 at 1541 by FAZAL VIZCARRA Brittani at [facility] notified SW that pt does not have REV codes for LTAC. CARMITA met with pt (no isolation precautions at the time) to advise of this and determine if pt wanted referral to SNU or would like to go home with home health if he still has drains etc. Pt reported he thinks he could manage okay at home and has his and family to help him if he needs help. SW asked if there was anyone SW could call to discuss with as well. Pt provided name and number of a family friend who speaks [place], Zulema Duncan [phone]. CARMITA spoke with Zulema, she thinks it would be better for pt to go home and thinks home health would be a good idea. ACRMITA advised TPN can be done at home too. Pt had NG removed today and advanced to clear liquid diet. SW will continue to follow.
[2020-09-02 11:00] VITALS: BP 118/73
[2020-09-02] MEDS: TPN PER PHARMACY MC PRN (12:29)
[2020-09-02] MEDS: FAMOTIDINE 20 MG/2 ML VIAL IVP SCH ×2 (13:17→22:09)
[2020-09-02] MEDS: HEPARIN for SUB-Q USE 5,000 UNIT/ML VIAL. SQ SCH ×2 (13:30→22:11)
--- NOTE | 2020-09-02 13:30 | PDOC ---
SURGICAL PROGRESS NOTE DATE: 09/02/20 TIME: 13:28 Subjective drain output less tolerating ng clamping no nausea pain managed Vital Signs Vital Signs Date Time Temp Pulse Resp B/P (MAP) Pulse Ox O2 Delivery O2 Flow Rate FiO2 09/02/20 11:00 98.1 59 16 118/73 (88) 96 Room Air 98.1 I&O Intake and Output 09/02/20 07:00 Intake Total 0 ml Output Total 30 ml Balance -30 ml Intake Oral 0 ml Drainage Total 30 ml General: Alert, Oriented X3, Cooperative HEENT: Other (ng clamped ) Abdomen: Soft, Other (drains scant purulent, g tube to DD) Labs Laboratory Tests Test 09/01/20 05:50 09/02/20 07:25 Sodium Level 139 mmol/L (136-145) 139 mmol/L (136-145) Potassium Level 4.6 mmol/L (3.5-5.1) 3.9 mmol/L (3.5-5.1) Chloride Level 107 mmol/L (98-107) 106 mmol/L (98-107) Carbon Dioxide Level 21 mmol/L (21-32) 21 mmol/L (21-32) Anion Gap 11 (6-14) 12 (6-14) Blood Urea Nitrogen 19 mg/dL (8-26) 20 mg/dL (8-26) Creatinine 0.8 mg/dL (0.7-1.3) 0.8 mg/dL (0.7-1.3) Estimated GFR (Cockcroft-Gault) 99.6 99.6 BUN/Creatinine Ratio 24 (6-20) Glucose Level 131 mg/dL (70-99) 136 mg/dL (70-99) Calcium Level 8.7 mg/dL (8.5-10.1) 8.5 mg/dL (8.5-10.1) Phosphorus Level 4.1 mg/dL (2.6-4.7) Magnesium Level 2.3 mg/dL (1.8-2.4) Total Bilirubin 1.4 mg/dL (0.2-1.0) Aspartate Amino Transf (AST/SGOT) 46 U/L (15-37) Alanine Aminotransferase (ALT/SGPT) 95 U/L (16-63) Alkaline Phosphatase 129 U/L (46-116) Total Protein 6.7 g/dL (6.4-8.2) Albumin 2.6 g/dL (3.4-5.0) Albumin/Globulin Ratio 0.6 (1.0-1.7) Triglycerides Level 122 mg/dL (0-150) Laboratory Tests Test 09/02/20 07:25 Sodium Level 139 mmol/L (136-145) Potassium Level 3.9 mmol/L (3.5-5.1) Chloride Level 106 mmol/L (98-107) Carbon Dioxide Level 21 mmol/L (21-32) Anion Gap 12 (6-14) Blood Urea Nitrogen 20 mg/dL (8-26) Creatinine 0.8 mg/dL (0.7-1.3) Estimated GFR (Cockcroft-Gault) 99.6 Glucose Level 136 mg/dL (70-99) Calcium Level 8.5 mg/dL (8.5-10.1) Assessment/Plan remove NG clears, continue g tube to DD continue drains Justicifation of Admission Dx: Justifications for Admission: Justification of Admission Dx: Yes CHF: Hemodynamic Instability MANUELA ALVES [employer] Sep 02, 2020 13:29
[2020-09-02 15:00] VITALS: BP 112/74
[2020-09-02 19:00] VITALS: BP 127/82
[2020-09-02] MEDS ORDERED: TOTAL PARENTERAL NUTRITION IV SCH (22:00)
[2020-09-02] MEDS ORDERED: [UNRECOGNIZED DRUG - OTHER] IV SCH (22:00)
[2020-09-02] MEDS ORDERED: AMINO ACID IV SCH (22:00)
[2020-09-02] MEDS ORDERED: DEXTROSE 70% IV SCH (22:00)
[2020-09-02] MEDS: TAMSULOSIN 0.4 MG CAP.ER.24H. PO SCH (22:10)
[2020-09-02 23:00] VITALS: BP 126/75
[2020-09-03] MEDS: PIPERACILLIN/TAZOBACTAM 3.375 GM in IV NORMAL SALINE 50ML 50 ML IV SCH ×5 (00:37→17:54)
[2020-09-03 03:00] VITALS: BP 105/66
[2020-09-03] MEDS ORDERED: ALTEPLASE 2MG VIAL 5 MG in IV NORMAL SALINE 50ML 30 ML IV ONE (06:00)
[2020-09-03 07:00] VITALS: BP 104/64
[2020-09-03] MEDS ORDERED: ALTEPLASE 1MG SYRINGE. INT CAT ONE (07:00)
--- NOTE | 2020-09-03 08:00 | NUR ---
Demlaro x 2 unsuccessful, unable to obtain a sufficient amount of blood from [facility] life for lab work. lab notified, asked to come stick pt for lab draws.
[2020-09-03] MEDS: FAMOTIDINE 20 MG/2 ML VIAL IVP SCH ×2 (08:21→20:49)
[2020-09-03] MEDS: HEPARIN for SUB-Q USE 5,000 UNIT/ML VIAL. SQ SCH ×2 (08:24→21:05)
[2020-09-03 11:00] VITALS: BP 122/73
--- NOTE | 2020-09-03 11:45 | NUR ---
SW following. Discussed with RN, pt still on clear liquid diet, has drains. Potential plan for home health upon discharge. Family friend concerned about stairs up to pt's home, however per therapy note pt able to manage stairs here but limited due to the IV lines. SW will continue to follow.
[2020-09-03] MEDS: TPN PER PHARMACY MC PRN (12:39)
--- NOTE | 2020-09-03 12:47 | NUR ---
Pharmacy TPN Dosing Note S: DURGA RICHARD is a 55 year old M Currently receiving Central Continuous TPN started 08/27/20 B:Pertinent PMH: gastric cancer Height: 5 feet, 4 inches Weight: 79.7 kg Current diet: cld LABS: Sodium: 139 Potassium: 3.9 Chloride: 106 Calcium: 8.5 Corrected Calcium: 10.18 Magnesium: 2.3 CO2: 21 SCr: 0.8 Glucose: 136 Albumin: 1.9 AST: 46 ALT: 95 TPN FORMULA: TPN TYPE: Central Continuous AMINO ACIDS: 95 gm DEXTROSE: 250 gm LIPIDS: 30 gm SODIUM CHLORIDE: 90 mEq SODIUM ACETATE: -- mEq SODIUM PHOSPHATE: -- mmol POTASSIUM CHLORIDE: 30 mEq POTASSIUM ACETATE: -- mEq POTASSIUM PHOSPHATE: 13.6 mmol MAGNESIUM: 8 mEq CALCIUM: 10 mEq INSULIN: -- units MULTIPLE VITAMIN: 10 ml TRACE ELEMENTS: 1 ml(s) TPN PLAN: No labs today (ordered, PICC access problems requiring alteplase). No changes to TPN. Pt started on CLD yesterday, eating some. BMP in AM. R: Continue TPN as above. Will monitor electrolytes, glucose, and tolerance to TPN. RAJ HURTADO [facility], 09/03/20 [id number]
[2020-09-03 14:31] LABS: CALCIUM 8.5 mg/dL (8.5-10.1); CREATININE 0.8 mg/dL (0.7-1.3); GFR 99.6; POTASSIUM 3.8 mmol/L (3.5-5.1)
[2020-09-03 15:15] VITALS: BP 120/76
[2020-09-03 19:00] VITALS: BP 126/84
[2020-09-03] MEDS ORDERED: HYDROcodone/APAP 5/325MG 1 TAB TABLET PO PRN (19:30)
--- NOTE | 2020-09-03 19:32 | PDOC ---
SURGICAL PROGRESS NOTE DATE: 09/03/20 TIME: 19:27 Subjective Pt doing well, no N/V, NGT out, passing flatus Vital Signs Vital Signs Date Time Temp Pulse Resp B/P (MAP) Pulse Ox O2 Delivery O2 Flow Rate FiO2 09/03/20 15:15 98.1 58 18 120/76 (91) 95 Room Air 98.1 I&O Intake and Output 09/03/20 07:00 Intake Total 50 ml Output Total 1000 ml Balance -950 ml IV Total 50 ml Output Urine Total 1000 ml General: Alert, Oriented X3, Cooperative, No acute distress Abdomen: Soft, No tenderness, Other (drains with min purulent drainage) Labs Laboratory Tests Test 09/02/20 07:25 09/03/20 14:00 Sodium Level 139 mmol/L (136-145) 139 mmol/L (136-145) Potassium Level 3.9 mmol/L (3.5-5.1) 3.8 mmol/L (3.5-5.1) Chloride Level 106 mmol/L (98-107) 105 mmol/L (98-107) Carbon Dioxide Level 21 mmol/L (21-32) 24 mmol/L (21-32) Anion Gap 12 (6-14) 10 (6-14) Blood Urea Nitrogen 20 mg/dL (8-26) 16 mg/dL (8-26) Creatinine 0.8 mg/dL (0.7-1.3) 0.8 mg/dL (0.7-1.3) Estimated GFR (Cockcroft-Gault) 99.6 99.6 Glucose Level 136 mg/dL (70-99) 104 mg/dL (70-99) Calcium Level 8.5 mg/dL (8.5-10.1) 8.5 mg/dL (8.5-10.1) Laboratory Tests Test 09/03/20 14:00 Sodium Level 139 mmol/L (136-145) Potassium Level 3.8 mmol/L (3.5-5.1) Chloride Level 105 mmol/L (98-107) Carbon Dioxide Level 24 mmol/L (21-32) Anion Gap 10 (6-14) Blood Urea Nitrogen 16 mg/dL (8-26) Creatinine 0.8 mg/dL (0.7-1.3) Estimated GFR (Cockcroft-Gault) 99.6 Glucose Level 104 mg/dL (70-99) Calcium Level 8.5 mg/dL (8.5-10.1) Problem List s/p gastrectomy try full liquids Justicifation of Admission Dx: Justifications for Admission: Justification of Admission Dx: Yes CHF: Hemodynamic Instability MARVIN ENGEL MD Sep 03, 2020 19:32
[2020-09-03] MEDS: TAMSULOSIN 0.4 MG CAP.ER.24H. PO SCH (20:49)
[2020-09-03] MEDS: LACTOBACILLUS RHAMNOSUS GG 1 CAPSULE. PO SCH (21:07)
[2020-09-03] MEDS ORDERED: AMINO ACID IV SCH (22:00)
[2020-09-03] MEDS ORDERED: DEXTROSE 70% IV SCH (22:00)
[2020-09-03] MEDS ORDERED: TOTAL PARENTERAL NUTRITION IV SCH (22:00)
[2020-09-03] MEDS ORDERED: [UNRECOGNIZED DRUG - OTHER] IV SCH (22:00)
[2020-09-03 23:00] VITALS: BP 123/63
--- NOTE | 2020-09-04 00:01 | NUR ---
09/03/20 at 2300 G-tube clamped per Dr Elder's order, will continue to monitor pt.
[2020-09-04 02:59] VITALS: BP 104/68
[2020-09-04] MEDS: PIPERACILLIN/TAZOBACTAM 3.375 GM in IV NORMAL SALINE 50ML 50 ML IV SCH ×5 (05:18→23:29)
[2020-09-04 06:46] LABS: CALCIUM 8.5 mg/dL (8.5-10.1); CREATININE 0.8 mg/dL (0.7-1.3); GFR 99.6; POTASSIUM 3.8 mmol/L (3.5-5.1)
[2020-09-04 07:00] VITALS: BP 123/76
[2020-09-04] MEDS: LACTOBACILLUS RHAMNOSUS GG 1 CAPSULE. PO SCH ×2 (09:50→19:59)
[2020-09-04] MEDS: DOCUSATE SODIUM 100 MG CAPSULE. PO SCH (09:50)
[2020-09-04] MEDS: FAMOTIDINE 20 MG/2 ML VIAL IVP SCH ×2 (09:50→19:59)
[2020-09-04] MEDS: HEPARIN for SUB-Q USE 5,000 UNIT/ML VIAL. SQ SCH ×2 (09:57→20:10)
[2020-09-04 10:38] VITALS: BP 114/78
--- NOTE | 2020-09-04 10:53 | NUR ---
SW following. Discussed with RN, pt on room air, advanced to full liquid diet. G tube was clamped last night. Plans are for pt to discharge home with home health when medically ready. SW to arrange home health services. SW will continue to follow.
[2020-09-04] MEDS: TPN PER PHARMACY MC PRN (13:22)
--- NOTE | 2020-09-04 14:21 | PDOC ---
SURGICAL PROGRESS NOTE DATE: 09/04/20 TIME: 14:20 Subjective tolerating diet no significant pain Vital Signs Vital Signs Date Time Temp Pulse Resp B/P (MAP) Pulse Ox O2 Delivery O2 Flow Rate FiO2 09/04/20 10:38 98.4 60 18 114/78 (90) 97 Room Air 98.4 I&O Intake and Output 09/04/20 07:00 Intake Total 650 ml Output Total 450 ml Balance 200 ml Intake Oral 600 ml IV Total 50 ml Drainage Total 450 ml General: Alert, Oriented X3, Cooperative Abdomen: Soft, Other (IR perc drain still purulent, JUNIOR scant , g tube clamped ) Labs Laboratory Tests Test 09/03/20 14:00 09/04/20 05:50 Sodium Level 139 mmol/L (136-145) 141 mmol/L (136-145) Potassium Level 3.8 mmol/L (3.5-5.1) 3.8 mmol/L (3.5-5.1) Chloride Level 105 mmol/L (98-107) 106 mmol/L (98-107) Carbon Dioxide Level 24 mmol/L (21-32) 24 mmol/L (21-32) Anion Gap 10 (6-14) 11 (6-14) Blood Urea Nitrogen 16 mg/dL (8-26) 16 mg/dL (8-26) Creatinine 0.8 mg/dL (0.7-1.3) 0.8 mg/dL (0.7-1.3) Estimated GFR (Cockcroft-Gault) 99.6 99.6 Glucose Level 104 mg/dL (70-99) 123 mg/dL (70-99) Calcium Level 8.5 mg/dL (8.5-10.1) 8.5 mg/dL (8.5-10.1) Laboratory Tests Test 09/04/20 05:50 Sodium Level 141 mmol/L (136-145) Potassium Level 3.8 mmol/L (3.5-5.1) Chloride Level 106 mmol/L (98-107) Carbon Dioxide Level 24 mmol/L (21-32) Anion Gap 11 (6-14) Blood Urea Nitrogen 16 mg/dL (8-26) Creatinine 0.8 mg/dL (0.7-1.3) Estimated GFR (Cockcroft-Gault) 99.6 Glucose Level 123 mg/dL (70-99) Calcium Level 8.5 mg/dL (8.5-10.1) Assessment/Plan dc auto parker hopefully advance diet and wean TPN soon Justicifation of Admission Dx: Justifications for Admission: Justification of Admission Dx: Yes CHF: Hemodynamic Instability MANUELA ALVES [employer] Sep 04, 2020 14:21
[2020-09-04] MEDS ORDERED: oxyCODONE/APAP 5/325 1 TAB TABLET PO PRN (14:30)
[2020-09-04 14:54] VITALS: BP 118/75
[2020-09-04 19:00] VITALS: BP 136/76
[2020-09-04] MEDS: TAMSULOSIN 0.4 MG CAP.ER.24H. PO SCH (19:59)
[2020-09-04] MEDS ORDERED: [UNRECOGNIZED DRUG - OTHER] IV SCH (22:00)
[2020-09-04] MEDS ORDERED: TOTAL PARENTERAL NUTRITION IV SCH (22:00)
[2020-09-04] MEDS ORDERED: DEXTROSE 70% IV SCH (22:00)
[2020-09-04] MEDS ORDERED: AMINO ACID IV SCH (22:00)
[2020-09-04 23:00] VITALS: BP 124/77
[2020-09-05 03:00] VITALS: BP 109/72
[2020-09-05] MEDS: PIPERACILLIN/TAZOBACTAM 3.375 GM in IV NORMAL SALINE 50ML 50 ML IV SCH ×4 (05:36→23:59)
[2020-09-05 07:00] VITALS: BP 111/66
[2020-09-05] MEDS: LACTOBACILLUS RHAMNOSUS GG 1 CAPSULE. PO SCH ×2 (08:20→20:46)
[2020-09-05] MEDS: DOCUSATE SODIUM 100 MG CAPSULE. PO SCH (08:20)
[2020-09-05] MEDS: FAMOTIDINE 20 MG/2 ML VIAL IVP SCH (08:21)
[2020-09-05] MEDS: HEPARIN for SUB-Q USE 5,000 UNIT/ML VIAL. SQ SCH ×2 (08:25→20:55)
--- NOTE | 2020-09-05 10:11 | NUR ---
SW following. Discussed with RN, DIRECTOR INFORMATICS has been dc'd, room air, tolerating full liquid diet. Per surgical note - "hopefully advance diet and wean off TPN soon." Plan for home health at discharge, if needed. SW will continue to follow.
[2020-09-05 10:45] VITALS: BP 116/78
--- NOTE | 2020-09-05 13:34 | PDOC ---
SURGICAL PROGRESS NOTE DATE: 09/05/20 TIME: 13:33 Subjective feels well having stools Vital Signs Vital Signs Date Time Temp Pulse Resp B/P (MAP) Pulse Ox O2 Delivery O2 Flow Rate FiO2 09/05/20 10:45 97.7 60 18 116/78 (91) 96 Room Air 97.7 09/05/20 07:55 2.0 I&O Intake and Output 09/05/20 07:00 Intake Total 1612 ml Balance 1612 ml IV Total 1612 ml # Voids 1 General: Alert, Oriented X3, Cooperative Abdomen: Soft, Other (drains less output) Labs Laboratory Tests Test 09/03/20 14:00 09/04/20 05:50 Sodium Level 139 mmol/L (136-145) 141 mmol/L (136-145) Potassium Level 3.8 mmol/L (3.5-5.1) 3.8 mmol/L (3.5-5.1) Chloride Level 105 mmol/L (98-107) 106 mmol/L (98-107) Carbon Dioxide Level 24 mmol/L (21-32) 24 mmol/L (21-32) Anion Gap 10 (6-14) 11 (6-14) Blood Urea Nitrogen 16 mg/dL (8-26) 16 mg/dL (8-26) Creatinine 0.8 mg/dL (0.7-1.3) 0.8 mg/dL (0.7-1.3) Estimated GFR (Cockcroft-Gault) 99.6 99.6 Glucose Level 104 mg/dL (70-99) 123 mg/dL (70-99) Calcium Level 8.5 mg/dL (8.5-10.1) 8.5 mg/dL (8.5-10.1) Problem List advance diet dc tpn Justicifation of Admission Dx: Justifications for Admission: Justification of Admission Dx: Yes CHF: Hemodynamic Instability MANUELA ALVES FAM[employer]ATION OFFICER Sep 05, 2020 13:34
[2020-09-05 14:55] VITALS: BP 117/78
[2020-09-05 19:10] VITALS: BP 134/78
[2020-09-05] MEDS: FAMOTIDINE 20 MG TABLET. PO SCH (20:46)
[2020-09-05] MEDS: TAMSULOSIN 0.4 MG CAP.ER.24H. PO SCH (20:46)
[2020-09-05 23:05] VITALS: BP 129/76
[2020-09-06 03:22] VITALS: BP 103/63
[2020-09-06] MEDS: PIPERACILLIN/TAZOBACTAM 3.375 GM in IV NORMAL SALINE 50ML 50 ML IV SCH ×4 (05:59→23:56)
[2020-09-06 07:00] VITALS: BP 101/64
[2020-09-06] MEDS: DOCUSATE SODIUM 100 MG CAPSULE. PO SCH (09:00)
[2020-09-06] MEDS: HEPARIN for SUB-Q USE 5,000 UNIT/ML VIAL. SQ SCH ×2 (09:00→21:42)
--- NOTE | 2020-09-06 10:00 | PDOC ---
SURGICAL PROGRESS NOTE DATE: 09/06/20 TIME: 09:59 Subjective feeling pretty well tolerating diet Vital Signs Vital Signs Date Time Temp Pulse Resp B/P (MAP) Pulse Ox O2 Delivery O2 Flow Rate FiO2 09/06/20 07:00 98.4 58 18 101/64 (76) 95 Room Air 98.4 09/05/20 07:55 2.0 I&O Intake and Output 09/06/20 07:00 Intake Total 1750 ml Balance 1750 ml Intake Oral 300 ml IV Total 1450 ml # Voids 1 General: Alert, Oriented X3, Cooperative Abdomen: Soft, Other (drains small amount of drainage ) Assessment/Plan will check ct to eval abscess/drains Justicifation of Admission Dx: Justifications for Admission: Justification of Admission Dx: Yes CHF: Hemodynamic Instability MANUELA ALVES APRN Sep 06, 2020 10:00
[2020-09-06] MEDS ORDERED: CONTRAST GIVEN. MC PRN (10:15)
[2020-09-06] MEDS ORDERED: IOHEXOL 240 MG/ML 50ML VIAL. PO ONE (10:15)
[2020-09-06] MEDS ORDERED: IOHEXOL 300 MG/ML 100ML VIAL. IV ONE (10:15)
[2020-09-06 11:00] VITALS: BP 105/68
[2020-09-06] MEDS: LACTOBACILLUS RHAMNOSUS GG 1 CAPSULE. PO SCH ×2 (13:20→21:36)
[2020-09-06] MEDS: FAMOTIDINE 20 MG TABLET. PO SCH ×2 (13:21→21:36)
[2020-09-06 15:00] VITALS: BP 115/74
--- NOTE | 2020-09-06 16:24 | RAD ---
EXAM: CT Abdomen and Pelvis with IV contrast INDICATION: Reason: abscess/drain / Spl. Instructions: / History: TECHNIQUE: Multi-detector row CT images were acquired from the lung bases through the abdomen and pelvis with the use of IV contrast. Sagittal and coronal images were acquired from the transaxial data. All CT scans performed at this facility utilize dose optimization techniques as appropriate to the exam, including the following: Automated exposure control and adjustment of the mA and/or KV according to patient size (this includes techniques or standardized protocols for targeted exams where dose is indication/reason for exam). IV CONTRAST: Administered ORAL CONTRAST: Administered COMPARISON: Contrast-enhanced abdomen pelvis CT of 08/25/2020, upper GI series of 09/01/2020 FINDINGS: LOWER CHEST: Minimal bibasilar atelectatic changes, improved from prior. Left pleural effusion evident previously has since resolved. LIVER: Unremarkable BILIARY SYSTEM: Gallbladder is unremarkable. Bile ducts are not dilated. PANCREAS: Unremarkable SPLEEN: Unremarkable ADRENALS: Unremarkable KIDNEYS & URETERS: Unremarkable BLADDER: Hidalgo catheter has been removed. REPRODUCTIVE ORGANS: Stable mild enlargement of the prostate gland measuring 5.3 cm transverse diameter. GASTROINTESTINAL: The enteric tube present previously has since been removed. Percutaneous jejunostomy tube remains present intraluminally in the left upper quadrant small bowel loops. No evidence of bowel perforation or obstruction. Enteric contrast opacifies small bowel loops but does not opacify the distal small bowel by the time of scanning no evidence of opacify the large bowel. Large bowel is diffusely collapsed and shows scattered colonic diverticuli in the left colon. The appendix is normal. MESENTERY/PERITONEUM/RETROPERITONEUM: There has been interval placement of a percutaneous pigtail drainage catheter in the left upper quadrant abdomen with evacuation of the perigastric fluid collection evident previously. No residual drainable fluid is identified on CT. The left upper quadrant approach drainage catheter coursing through the proximal anastomosis status post gastrectomy remains present with the tip terminating along the gastrohepatic ligament. VASCULAR: Unremarkable LYMPH NODES: No adenopathy OSSEOUS & SOFT TISSUES: A drain along the midline ventral abdominal incision remains present with no residual fluid collection evident. IMPRESSION: The postoperative fluid collection adjacent to the proximal anastomosis status post previous gastrectomy appears to have been completely evacuated in the interval following placement of a pigtail drainage catheter. Electronically signed by: Alisson Roque MD (09/06/2020 4:22 PM) [id number]
[2020-09-06 19:00] VITALS: BP 135/85
[2020-09-06] MEDS: TAMSULOSIN 0.4 MG CAP.ER.24H. PO SCH (21:36)
[2020-09-06 23:00] VITALS: BP 127/76
[2020-09-07 03:00] VITALS: BP 106/65
[2020-09-07] MEDS: PIPERACILLIN/TAZOBACTAM 3.375 GM in IV NORMAL SALINE 50ML 50 ML IV SCH ×3 (06:04→18:52)
[2020-09-07 07:00] VITALS: BP 100/69
[2020-09-07] MEDS: DOCUSATE SODIUM 100 MG CAPSULE. PO SCH (09:51)
[2020-09-07] MEDS: LACTOBACILLUS RHAMNOSUS GG 1 CAPSULE. PO SCH ×2 (09:52→21:18)
[2020-09-07] MEDS: FAMOTIDINE 20 MG TABLET. PO SCH ×2 (09:52→21:18)
[2020-09-07] MEDS: HEPARIN for SUB-Q USE 5,000 UNIT/ML VIAL. SQ SCH ×2 (09:57→21:23)
[2020-09-07 11:00] VITALS: BP 106/76
--- NOTE | 2020-09-07 11:57 | PDOC ---
SURGICAL PROGRESS NOTE DATE: 09/07/20 TIME: 11:56 Subjective Pt with c/o mild pain with eating, but otherwise doing well Vital Signs Vital Signs Date Time Temp Pulse Resp B/P (MAP) Pulse Ox O2 Delivery O2 Flow Rate FiO2 09/07/20 07:00 98.4 72 16 100/69 (79) 99 98.4 09/07/20 03:00 Room Air I&O Intake and Output 09/07/20 07:00 Intake Total 300 ml Output Total 20 ml Balance 280 ml Intake Oral 300 ml Drainage Total 20 ml # Voids 2 General: Alert, Oriented X3, Cooperative, No acute distress Abdomen: Soft, No tenderness, Other (JUNIOR min drainage, ) I have reviewed the following CT reassuring with resolution of abscess Problem List s/p gastrectomy doing well will ask IR if OK to d/c IR drain ADAT slowly plan d/c home in AM Justicifation of Admission Dx: Justifications for Admission: Justification of Admission Dx: Yes CHF: Hemodynamic Instability MARVIN ENEGL MD Sep 07, 2020 11:57
[2020-09-07 15:00] VITALS: BP 116/70
[2020-09-07 19:50] VITALS: BP 119/75
[2020-09-07] MEDS: TAMSULOSIN 0.4 MG CAP.ER.24H. PO SCH (21:18)
[2020-09-07 22:35] VITALS: BP 108/75
[2020-09-08] MEDS: PIPERACILLIN/TAZOBACTAM 3.375 GM in IV NORMAL SALINE 50ML 50 ML IV SCH ×3 (00:02→11:41)
[2020-09-08 03:00] VITALS: BP 103/65
[2020-09-08 07:00] VITALS: BP 111/70
[2020-09-08] MEDS: FAMOTIDINE 20 MG TABLET. PO SCH (08:20)
[2020-09-08] MEDS: LACTOBACILLUS RHAMNOSUS GG 1 CAPSULE. PO SCH (08:20)
[2020-09-08] MEDS: DOCUSATE SODIUM 100 MG CAPSULE. PO SCH (08:20)
[2020-09-08] MEDS: HEPARIN for SUB-Q USE 5,000 UNIT/ML VIAL. SQ SCH (08:24)
[2020-09-08 10:38] VITALS: BP 103/71
[2020-09-08] MEDS ORDERED: FAMO20TA5 PO (12:38)
[2020-09-08] MEDS ORDERED: DOCU-153 PO (12:38)
[2020-09-08] MEDS ORDERED: HYDR-2761 PO (12:38)
--- NOTE | 2020-09-08 12:46 | SNU/HH DC ---
DISCHARGE WITH HOME HEALTH DISCHARGE INFORMATION: Discharge Date: Sep 08, 2020 Condition on Discharge: Stable CODE STATUS: Code Status: Full HOME HEALTH: Face to Face: I certify this patient is under my care and that I, or a nurse practitioner or dilcia lyons's dental office assistant working with me, had a face to face encounter that meets the physician face to face encounter requirements with this patient on [09/08/20]. Medical Complications: Other (gastric cancer, recent surgery, has drain, g tube) RN For Eval/Treatment: Yes Home Health Aide For: Self-care Pt Meets Homebound Status: Unsteady balance w/ amb,, Fatigue w/ amb., Limited distance walking, Other: (drains in place) POST DISCHARGE ORDERS: Activity Instructions for Disc: Activity as tolerated (no lifting, pushing, pulling >20 lbs) Weight Bearing Status after Di: As tolerated Bathing Instructions: Shower-keep dressing dry DIET AFTER DISCHARGE: Regular Wound/Incision Care: Change dressing, May get incision wet, Other, see below (drain care, empty BID, dressing care and daily flush to g tube) FOLLOW-UP: PCP to follow Home Health: Dr Elder 1-2 weeks call to schedule [phone] CERTIFICATION STATEMENT: Certification Statement: Certification Statement: Based on the above finding, I certify that this patient is confined to the home and needs intermittent mcfp care, physical therapy and/or speech therapy, or continues to need occupational therapy.~ This patient is under my care, and I have initiated the establishment of the plan of care.~ This patient will be followed by myself or a community physician who will periodically review the plan of care. Home Meds Active Scripts Famotidine (FAMOTIDINE) 20 Mg Tablet, 20 MG PO BID for GERD, #40 TAB Prov:MANUELA ALVES DOCUMENT PREPARATION SPECIALIST 09/08/20 Docusate Sodium (DOK) 100 Mg Capsule, 100 MG PO DAILY for constipation, #60 CAP Prov:NICKELMANUELA L DOCUMENT PREPARATION SPECIALIST 09/08/20 Hydrocodone Bit/Acetaminophen (HYDROCODONE-APAP 5-325 ) 1 Tab Tablet, 1 TAB PO PRN Q4HRS PRN for PAIN, #15 TAB 0 Refills Prov:SOPHIA ALVESHA L DOCUMENT PREPARATION SPECIALIST 09/08/20 Discontinued Reported Medications Info (NO KNOWN MEDICATIONS PRIOR TO ADMISSTION) Each, 1 EACH MC DAILY for none, EACH 08/14/20 MANUELA ALVES APRN Sep 08, 2020 12:45
--- NOTE | 2020-09-08 12:58 | PDOC ---
SURGICAL PROGRESS NOTE DATE: 09/08/20 TIME: 12:57 Subjective tolerating diet ambulating minimal pain IR drain removed Vital Signs Vital Signs Date Time Temp Pulse Resp B/P (MAP) Pulse Ox O2 Delivery O2 Flow Rate FiO2 09/08/20 10:38 98.0 65 18 103/71 (82) 94 Room Air 98.0 I&O Intake and Output 09/08/20 07:00 Intake Total 240 ml Output Total 1025 ml Balance -785 ml Intake Oral 240 ml Output Urine Total 1000 ml Drainage Total 25 ml # Voids 2 General: Alert, Oriented X3, Cooperative Abdomen: Soft, Other (drain in place, g tube in place) Assessment/Plan home with HH will leave JUNIOR and g tube in place Justicifation of Admission Dx: Justifications for Admission: Justification of Admission Dx: Yes CHF: Hemodynamic Instability MANUELA ALVES APRN Sep 08, 2020 12:58
--- NOTE | 2020-09-08 13:02 | NUR ---
SW following. Discussed with RN, discharge orders for home with home health. CARMITA met with pt, pt contacted his friend Zulema to translate. CARMITA explained home health order, pt is agreeable and does not have a preference. CARMITA contacted [facility] to determine if they are in network with pt's insurance - [facility] requested SW fax the referral and they would double check. Referral faxed to [facility]. CARMITA will continue to follow. Addendum: 09/08/20 at 1500 by FAZAL VIZCARRA Pt accepted with [facility]. RN notified.
[2020-09-08 14:45] VITALS: BP 101/62
--- NOTE | 2020-09-08 16:55 | RAD ---
EXAM: CHEST AP ONLY INDICATION: Reason: Drain removal / Spl. Instructions: / History: . TECHNIQUE: Single view COMPARISON: Abdomen CT of 09/06/2020, upper GI series of 09/01/2020. FINDINGS: Right PICC line remains present, tip near the cavoatrial junction. Surgical drain in the left upper quadrant abdomen coursing towards the epigastrium remains present. The pigtail drainage catheter previously evident in the left upper quadrant abdomen adjacent to the stomach has since been removed. The heart size is normal. The great vessels appear unremarkable. There is no hilar or mediastinal mass. Lungs show nodular density in the periphery of the left lung base, compatible with residual atelectasis. Otherwise, lungs are clear. There is no pleural effusion or pneumothorax. There are no significant osseous abnormalities. Trace lucency underneath the diaphragms, compatible with interval drain manipulation/removal. IMPRESSION: Interval removal of the left upper quadrant abdominal drainage catheter with a trace amount of lucency underneath the diaphragms that is nonspecific. It could represent a small amount of free intraperitoneal air following the tibial drainage tube removal versus summation artifact of aerated lung between the lower ribs and diaphragm.. Electronically signed by: Alisson Roque MD (09/08/2020 4:52 PM) [id number]
--- NOTE | 2020-09-08 17:30 | NUR ---
Pt discharged home with home health. Dressing changed. Site cleansed with chloraprep and covered with gauze and tape. Alexandr removed. PICC removed. Discharge instructions were discussed by LOPEZ Klein. Pt and family questions were answered. Pt ambulated to main entrance and was secured in car with sister.
== END 2020-09-08 17:30 | disposition home health service (06) | DRG 326 ==
LOC: OPSVCIP 08-18 07:51 → EDUNIT# 08-18 09:30 → 4 NORTH 08-18 19:33
PROVIDERS: ADMIT Surgery; ATTEND Surgery
PROC: 0D150ZA Bypass Esophagus to Jejunum, Open Approach (ICD-10-PCS; 2020-08-18)
PROC: 0DHA3UZ Insertion of Feeding Device into Jejunum, Percutaneous Approach (ICD-10-PCS; 2020-08-18)
PROC: 0DJ08ZZ Inspection of Upper Intestinal Tract, Via Natural or Artificial Opening Endoscopic (ICD-10-PCS; 2020-08-18)
PROC: 0DT60ZZ Resection of Stomach, Open Approach (ICD-10-PCS; principal; 2020-08-18 09:30)
PROC: 0W9F30Z Drainage of Abdominal Wall with Drainage Device, Percutaneous Approach (ICD-10-PCS; 2020-08-26)
PROC: 02HV33Z Insertion of Infusion Device into Superior Vena Cava, Percutaneous Approach (ICD-10-PCS; 2020-08-27)
PROC: B5181ZA Fluoroscopy of Superior Vena Cava using Low Osmolar Contrast, Guidance (ICD-10-PCS; 2020-08-27)
PROC: B548ZZA Ultrasonography of Superior Vena Cava, Guidance (ICD-10-PCS; 2020-08-27)
DX: C16.9 Malignant neoplasm of stomach, unspecified (principal); E43 Unspecified severe protein-calorie malnutrition; J15.6 Pneumonia due to other Gram-negative bacteria; D62 Acute posthemorrhagic anemia; I50.9 Heart failure, unspecified; Z68.30 Body mass index [BMI] 30.0-30.9, adult; Z79.899 Other long term (current) drug therapy
CPT/HCPCS: 36415; 36573; 49406; 71045; 74018; 74177; 74240; 77001; 80048; 80053; 80076; 82962; 83735; 84100; 84478; 85007; 85025; 85610; 86850; 86900; 86901; 87071; 87075; 87077; 87186; 88309; 88341; 88342; 99152; A7015; C1729; C1751; C1892; J0610; J0694; J1100; J1644; J1885; J2250; J2270; J2370; J2405; J2543; J2704; J2710; J2997; J3010; J3475; J3480; J3490; J7030; J7120; Q9966; Q9967; 97110-GP; 97116-GP; 97530-GO; 97530-GP; 97535-GO; G0378

== ENCOUNTER 2020-09-11 09:05 | Emergency (ER) | payer OTHER ==
[~2020-09-11] VITALS: Ht 165.1 cm; Wt 59.1 kg
[~2020-09-11 09:05] MED LIST: DOCU-153 PO; FAMO20TA5 PO; HYDR-2761 PO
--- NOTE | 2020-09-11 09:25 | ED.ADGEN ---
General Adult EDM: Chief Complaint: POST-OP PROBLEM HPI: HPI: Patient is a 55 year old male coming in for dislodgment of JUNIOR drain that was placed 08/18. Patient has a history of gastric cancer and went to the OR, had a J-tube placed. Had the drain placed but noticed yesterday it was not maintaining suction and the ball was inflating. Has been having minimal output recently. Has a follow-up appointment with Dr. Ying September 24. Review of Systems: Review of Systems: Constitutional: Denies fever or chills. [] Eyes: Denies change in visual acuity. [] HENT: Denies nasal congestion or sore throat. [] Respiratory: Denies cough or shortness of breath. [] Cardiovascular: Denies chest pain or edema. [] GI: Denies abdominal pain, nausea, vomiting, bloody stools or diarrhea. [] : Denies dysuria. [] Musculoskeletal: Denies back pain or joint pain. [] Integument: Denies rash. [] Neurologic: Denies headache, focal weakness or sensory changes. [] Endocrine: Denies polyuria or polydipsia. [] Lymphatic: Denies swollen glands. [] Psychiatric: Denies depression or anxiety. [] Allergies: Allergies: Allergies Coded Allergies Type Severity Reaction Last Updated Verified No Known Drug Allergies 08/18/20 No Physical Exam: PE: Constitutional: Well developed, well nourished, no acute distress, non-toxic appearance. [] HENT: Normocephalic, atraumatic, bilateral external ears normal, oropharynx moist, no oral exudates, nose normal. [] Eyes: PERRLA, EOMI, conjunctiva normal, no discharge. [] Neck: Normal range of motion, no tenderness, supple, no stridor. [] Cardiovascular:Heart rate regular rhythm, no murmur [] Lungs & Thorax: Bilateral breath sounds clear to auscultation [] Abdomen: Bowel sounds normal, soft, no tenderness, no masses, no pulsatile masses. [] G-tube in place, 5 x 6 mm open incision in left upper quadrant, sutures remain in skin. Skin: Warm, dry, no erythema, no rash. [] Back: No tenderness, no CVA tenderness. [] Extremities: No tenderness, no cyanosis, no clubbing, ROM intact, no edema. [] Neurologic: Alert and oriented X 3, normal motor function, normal sensory function, no focal deficits noted. [] Psychologic: Affect normal, judgement normal, mood normal. [] Current Patient Data: Vital Signs: Vital Signs Date Time Temp Pulse Resp B/P (MAP) Pulse Ox O2 Delivery O2 Flow Rate FiO2 09/11/20 09:22 98.2 77 18 136/90 (105) 96 98.2 EKG: EKG: [] Heart Score: Risk Factors: Risk Factors: DM, Current or recent (<one month) smoker, HTN, HLP, family history of CAD, obesity. Risk Scores: Score 0 - 3: 2.5% MACE over next 6 weeks - Discharge Home Score 4 - 6: 20.3% MACE over next 6 weeks - Admit for Clinical Observation Score 7 - 10: 72.7% MACE over next 6 weeks - Early Invasive Strategies Radiology/Procedures: Radiology/Procedures: [] Impression: Discussed with Dr. Ying, he would like to drain to stay out in the wound open, with moved single suture that was anchoring drain. Patient requesting social work consult for help with home health nursing Course & Med Decision Making: Course & Med Decision Making Pertinent Labs and Imaging studies reviewed. (See chart for details) [] Dragon Disclaimer: Dragon Disclaimer: This electronic medical record was generated, in whole or in part, using a voice recognition dictation system. Departure Departure Impression: Primary Impression: JUNIOR drain, broken Disposition: 01 DC HOME SELF CARE/HOMELESS Condition: STABLE Referrals: GLENDY WEATHERS MD (PCP) MARVIN ENGEL MD Patient Instructions: Wound Care, [id number] VERONICA SANCHEZ MD Sep 11, 2020 09:25
[2020-09-11 12:15] VITALS: BP 130/86
== END 2020-09-11 12:30 | disposition home or self-care (01) ==
LOC: ER 09:05
DX: T85.618A Breakdown (mechanical) of other specified internal prosthetic devices, implants and grafts, initial encounter (principal); Y82.8 Other medical devices associated with adverse incidents; Y92.89 Other specified places as the place of occurrence of the external cause
CPT/HCPCS: 99281

== ENCOUNTER → 2020-12-24 | Outpatient (CLI) | payer OTHER ==
[~2020-12-24] MED LIST changes: +CONTRAST GIVEN. MC PRN; +IOHEXOL 240 MG/ML 50ML VIAL. PO ONE; +IOHEXOL 300 MG/ML 100ML VIAL. IV ONE
--- NOTE | 2020-12-24 12:22 | RAD ---
EXAM: CT Chest, Abdomen, and Pelvis with IV contrast INDICATION: Reason: GASTRIC CANCER / Spl. Instructions: INJ 75ML OMNI 300 30ML OMNI 240 PO / History: TECHNIQUE: Multi-detector row CT images were acquired from the thoracic inlet through the ischial tu berosities with the use of IV contrast. Sagittal and coronal images were acquired from the transaxial data. All CT scans performed at this facility utilize dose optimization techniques as appropriate to the exam, including the following: Automated exposure control and adjustment of the mA and/or KV acc ording to patient size (this includes techniques or standardized protocols for targeted exams where d ose is indication/reason for exam). IV CONTRAST: Administered ORAL CONTRAST: Administered COMPARISON: 09/06/[address] with IV contrast FINDINGS: CHEST: CARDIOVASCULAR: Unremarkable MEDIASTINUM & BRENNAN: Mild patulous thoracic esophagus. No wall thickening. No mediastinal mass or verónica opathy. LUNGS: No pulmonary infiltrate, nodule, or other focal abnormality. PLEURAL SPACE: No pleural effusions or pneumothorax. OSSEOUS & SOFT TISSUE: Unremarkable ABDOMEN/PELVIS: LIVER: Unremarkable BILIARY SYSTEM: Gallbladder is unremarkable. Bile ducts are not dilated. PANCREAS: Unremarkable SPLEEN: Unremarkable ADRENALS: Unremarkable KIDNEYS & URETERS: Unremarkable BLADDER: Unremarkable REPRODUCTIVE ORGANS: Prostate measures 5.6 cm in diameter. GASTROINTESTINAL: Gastrectomy surgical changes are redemonstrated with no findings of leak or obstruc tion. The percutaneous jejunostomy tube has since been removed. There is mild wall thickening and mes enteric hyperemia present in the descending colon and rectum. The appendix is normal. MESENTERY/PERITONEUM/RETROPERITONEUM: Mild soft tissue stranding along the ventral incision could ref lect interval surgical sutural closure of the midline ventral incision. There are no fluid collection s in the abdominal cavity identified. No free air and no ascites. VASCULAR: Unremarkable LYMPH NODES: No adenopathy OSSEOUS & SOFT TISSUES: Unremarkable IMPRESSION: 1. Interval removal of tubes and closure of the surgical wound post gastrectomy with no evidence of l eak or obstruction. No evidence of residual or recurrent malignancy. 2. There is mild wall thickening and pericolonic hyperemia to the large bowel that could reflect coli tis in the appropriate clinical context. Electronically signed by: Alisson Roque MD (12/24/2020 12:19 PM) [id number]
== END ==
LOC: CT 08:23
PROVIDERS: ATTEND Internal Medicine Hematology & Oncology
DX: C16.0 Malignant neoplasm of cardia (principal); K63.89 Other specified diseases of intestine
CPT/HCPCS: 71260; 74177; Q9966; Q9967

== ENCOUNTER → 2020-12-25 | Outpatient (CLI) | payer OTHER ==
[~2020-12-25] MED LIST changes: -CONTRAST GIVEN. MC PRN; -IOHEXOL 240 MG/ML 50ML VIAL. PO ONE; -IOHEXOL 300 MG/ML 100ML VIAL. IV ONE
[2020-12-25 08:46] LABS: BASO % 1 % (0-3); EOS # 0.1 x10^3/uL (0.0-0.7); EOS % 2 % (0-3); HEMATOCRIT 39.5 % (39.0-53.0); HEMOGLOBIN 13.3 g/dL (13.0-17.5); LYMPH # 1.6 x10^3/uL (1.0-4.8); LYMPH % 35 % (24-48); MEAN CORPUSCULAR HEMOGLOBIN 31 pg (25-35); MEAN CORPUSCULAR HGB CONC 34 g/dL (31-37); MEAN CORPUSCULAR VOLUME 91 fL (79-100); MONO # 0.3 x10^3/uL (0.0-1.1); MONO % 7 % (0-9); NEUT # 2.6 x10^3/uL (1.8-7.7); NEUT % 56 % (31-73); PLATELET COUNT 238 x10^3/uL (140-400); RED BLOOD COUNT 4.34 x10^6/uL (4.30-5.70); RED CELL DISTRIBUTION WIDTH 14.8 % (11.5-14.5); WHITE BLOOD COUNT 4.7 x10^3/uL (4.0-11.0)
[2020-12-25 09:01] LABS: CALCIUM 8.6 mg/dL (8.5-10.1); CREATININE 0.8 mg/dL (0.7-1.3); GFR 99.6; POTASSIUM 3.9 mmol/L (3.5-5.1)
[2020-12-25 09:06] LABS: ALBUMIN 3.4 g/dL (3.4-5.0); TOTAL BILIRUBIN 1.2 mg/dL (0.2-1.0); TOTAL PROTEIN 6.8 g/dL (6.4-8.2)
== END ==
LOC: ONCLAB 08:19
PROVIDERS: ATTEND Internal Medicine Hematology & Oncology
DX: C16.0 Malignant neoplasm of cardia (principal)
CPT/HCPCS: 80053; 82378; 85025

== ENCOUNTER → 2021-05-05 | Outpatient (CLI) | payer OTHER ==
[~2021-05-05] MED LIST changes: +CONTRAST GIVEN. MC PRN; +IOHEXOL 240 MG/ML 50ML VIAL. PO ONE; +IOHEXOL 300 MG/ML 100ML VIAL. IV ONE
--- NOTE | 2021-05-05 13:05 | RAD ---
EXAM: Chest, abdomen and pelvis CT with intravenous contrast. HISTORY: Gastric cancer restaging. TECHNIQUE: Computed tomographic images of the chest, abdomen and pelvis were obtained following the a dministration of intravenous contrast. Multiplanar reformatting was performed. *One or more of the following individualized dose reduction techniques were utilized for this examina tion: 1. Automated exposure control. 2. Adjustment of the mA and/or kV according to patient size. 3. Use of iterative reconstruction technique. COMPARISON: 12/24/2020. FINDINGS: Chest: There is mild cardiomegaly. The thoracic aorta is normal in caliber. There are few c alcified mediastinal granulomas. No pathologically enlarged mediastinal or hilar lymph node is seen. There is no pneumothorax or pleural effusion. There is no infiltrate or suspicious pulmonary nodule. There are few tiny pleural-based nodular opacities within the posterior left lower lobe which are lik tameka due to atelectasis or scarring. There is no acute or suspicious osseous lesion. Abdomen and pelvis: There are gastric changes. There is no evidence of anastomotic dehiscence or recu rrent or residual mass along the anastomosis. There has been slight interval decrease in stranding al gabe the ventral peritoneal fat and abdominal wall due to resolving laparotomy changes and residual sc ar/granulation tissue. No hepatic lesion is seen. The gallbladder, pancreas, spleen and adrenal glands are unremarkable. The re are tiny benign renal cortical cysts. There is no appendicitis. There is no bowel obstruction. There has been slight interval decrease in w all thickening involving the distal colon. There is no significant pericolonic stranding. There are d istal colonic diverticula. There is no abnormal bowel wall thickening. The aorta is normal in caliber . There is scarring within the ventral abdominal wall due to a prior laparotomy. The bladder is unrem arkable. There is no acute or suspicious osseous lesion. IMPRESSION: 1. No acute abdominal or pelvic finding or evidence of recurrent or residual malignancy. There are ga strectomy changes with associated residual scar/granulation tissue within the ventral peritoneum and ventral abdominal wall. There is no lymphadenopathy or soft tissue implant. 2. Slight interval decrease in distal colonic wall thickening, likely due to sequela of prior inflamm ation. There is no convincing acute colitis or diverticulitis. 3. Stable tiny renal cysts, some which are too small to characterize. Electronically signed by: Susi Napier MD (05/05/2021 1:03 PM) [id number]
== END ==
LOC: CT 09:08
PROVIDERS: ATTEND Internal Medicine Hematology & Oncology
DX: C16.0 Malignant neoplasm of cardia (principal); K57.30 Diverticulosis of large intestine without perforation or abscess without bleeding; I51.7 Cardiomegaly; N28.1 Cyst of kidney, acquired
CPT/HCPCS: 71260; 74177; Q9966; Q9967

== ENCOUNTER → 2021-05-11 | Outpatient (CLI) | payer OTHER ==
[~2021-05-11] MED LIST changes: -CONTRAST GIVEN. MC PRN; -IOHEXOL 240 MG/ML 50ML VIAL. PO ONE; -IOHEXOL 300 MG/ML 100ML VIAL. IV ONE
[2021-05-11 10:47] LABS: BASO % 1 % (0-3); EOS # 0.1 x10^3/uL (0.0-0.7); EOS % 2 % (0-3); HEMATOCRIT 39.6 % (39.0-53.0); HEMOGLOBIN 13.3 g/dL (13.0-17.5); LYMPH # 1.7 x10^3/uL (1.0-4.8); LYMPH % 37 % (24-48); MEAN CORPUSCULAR HEMOGLOBIN 32 pg (25-35); MEAN CORPUSCULAR HGB CONC 34 g/dL (31-37); MEAN CORPUSCULAR VOLUME 94 fL (79-100); MONO # 0.3 x10^3/uL (0.0-1.1); MONO % 7 % (0-9); NEUT # 2.5 x10^3/uL (1.8-7.7); NEUT % 54 % (31-73); PLATELET COUNT 216 x10^3/uL (140-400); RED BLOOD COUNT 4.21 x10^6/uL (4.30-5.70); RED CELL DISTRIBUTION WIDTH 13.4 % (11.5-14.5); WHITE BLOOD COUNT 4.7 x10^3/uL (4.0-11.0)
[2021-05-11 10:55] LABS: CALCIUM 9.1 mg/dL (8.5-10.1); CREATININE 0.9 mg/dL (0.7-1.3); GFR 86.7; POTASSIUM 3.9 mmol/L (3.5-5.1)
[2021-05-11 11:01] LABS: ALBUMIN 3.7 g/dL (3.4-5.0); ALBUMIN/GLOBULIN RATIO 1.1 (1.0-1.7); TOTAL BILIRUBIN 1.4 mg/dL (0.2-1.0)
== END ==
LOC: ONCLAB 09:50
PROVIDERS: ATTEND Internal Medicine Hematology & Oncology
DX: C16.0 Malignant neoplasm of cardia (principal)
CPT/HCPCS: 36415; 80053; 82378; 85025

== ENCOUNTER → 2021-06-22 | Outpatient (CLI) | payer OTHER ==
[~2021-06-22] MED LIST changes: +DOCU-148 PO; -DOCU-153 PO
[2021-06-22 11:47] LABS: BASO % 1 % (0-3); EOS # 0.1 x10^3/uL (0.0-0.7); EOS % 2 % (0-3); HEMATOCRIT 40.3 % (39.0-53.0); HEMOGLOBIN 13.7 g/dL (13.0-17.5); LYMPH # 1.9 x10^3/uL (1.0-4.8); LYMPH % 36 % (24-48); MEAN CORPUSCULAR HEMOGLOBIN 32 pg (25-35); MEAN CORPUSCULAR HGB CONC 34 g/dL (31-37); MEAN CORPUSCULAR VOLUME 93 fL (79-100); MONO # 0.4 x10^3/uL (0.0-1.1); MONO % 7 % (0-9); NEUT # 2.8 x10^3/uL (1.8-7.7); NEUT % 54 % (31-73); PLATELET COUNT 206 x10^3/uL (140-400); RED BLOOD COUNT 4.33 x10^6/uL (4.30-5.70); RED CELL DISTRIBUTION WIDTH 13.3 % (11.5-14.5); WHITE BLOOD COUNT 5.2 x10^3/uL (4.0-11.0)
[2021-06-22 11:54] LABS: CALCIUM 9.1 mg/dL (8.5-10.1); CREATININE 0.9 mg/dL (0.7-1.3); GFR 86.7; POTASSIUM 4.8 mmol/L (3.5-5.1)
[2021-06-22 12:00] LABS: ALBUMIN 3.8 g/dL (3.4-5.0); ALBUMIN/GLOBULIN RATIO 1.1 (1.0-1.7); TOTAL BILIRUBIN 1.1 mg/dL (0.2-1.0); TOTAL PROTEIN 7.3 g/dL (6.4-8.2)
[2021-06-22 12:46] LABS: AMYLASE 73 U/L (25-115); LACTATE DEHYDROGENASE 114 U/L (85-227); LIPASE 76 U/L (73-393)
== END ==
LOC: ONCLAB 11:28
PROVIDERS: ATTEND Internal Medicine Hematology & Oncology
DX: C16.0 Malignant neoplasm of cardia (principal)
CPT/HCPCS: 36415; 80053; 82150; 82306; 82378; 83615; 83690; 85025

== ENCOUNTER → 2021-07-24 | Outpatient (CLI) | payer OTHER ==
[2021-07-24 10:38] LABS: BASO % 1 % (0-3); EOS # 0.1 x10^3/uL (0.0-0.7); EOS % 2 % (0-3); HEMOGLOBIN 13.5 g/dL (13.0-17.5); LYMPH # 1.8 x10^3/uL (1.0-4.8); LYMPH % 32 % (24-48); MEAN CORPUSCULAR HEMOGLOBIN 32 pg (25-35); MEAN CORPUSCULAR HGB CONC 35 g/dL (31-37); MEAN CORPUSCULAR VOLUME 92 fL (79-100); MONO # 0.6 x10^3/uL (0.0-1.1); MONO % 10 % (0-9); NEUT # 3.2 x10^3/uL (1.8-7.7); NEUT % 56 % (31-73); PLATELET COUNT 235 x10^3/uL (140-400); RED BLOOD COUNT 4.23 x10^6/uL (4.30-5.70); RED CELL DISTRIBUTION WIDTH 12.9 % (11.5-14.5); WHITE BLOOD COUNT 5.8 x10^3/uL (4.0-11.0)
[2021-07-24 10:48] LABS: CALCIUM 9.1 mg/dL (8.5-10.1); GFR 76.7; POTASSIUM 3.8 mmol/L (3.5-5.1)
[2021-07-24 10:56] LABS: ALBUMIN 3.7 g/dL (3.4-5.0); TOTAL PROTEIN 7.3 g/dL (6.4-8.2)
== END ==
LOC: ONCLAB 10:16
PROVIDERS: ATTEND Internal Medicine Hematology & Oncology
DX: C16.0 Malignant neoplasm of cardia (principal)
CPT/HCPCS: 36415; 80053; 82378; 85025

== ENCOUNTER → 2021-08-04 | Outpatient (CLI) | payer OTHER, MEDICAID ==
[~2021-08-04] MED LIST changes: +IOHEXOL 240 MG/ML 50ML VIAL. PO ONE; +IOHEXOL 300 MG/ML 100ML VIAL. IV ONE
--- NOTE | 2021-08-04 15:15 | RAD ---
EXAM: CT OF THE CHEST, ABDOMEN AND PELVIS WITH CONTRAST. HISTORY: Gastric cancer. TECHNIQUE: Computed tomography of the chest, abdomen and pelvis was performed after the intravenous a dministration of iodinated contrast. One or more of the following individualized dose reduction techn iques were utilized for this examination: 1. Automated exposure control. 2. Adjustment of the mA and/or kV according to patient size. 3. Use of iterative reconstruction technique. COMPARISON: 05/05/2021. FINDINGS: Bone windows reveal no suspicious lesions. There are no pathologically enlarged mediastinal or axillary lymph nodes. There is no pleural or tricia cardial effusion. The heart is not enlarged. Lung windows reveal no infiltrates. Sub-4 mm nodules in the left lower lobe are calcified or stable a nd likely benign. The stomach has been resected with esophagojejunal anastomosis. There is no small bowel obstruction. There are no suspicious hepatic lesions. There are no pathologically enlarged lymph nodes or ascites. The pancreas, gallbladder, adrenal glands, as lean and kidneys are unremarkable. Wall thickening of the left colon appears slightly increased. The appendix is not inflamed. Left colo nafisa diverticulosis is mild. IMPRESSION: 1. No evidence of recurrent or metastatic disease. 2. Wall thickening of the left colon has increased. Correlate for causes of colitis. Electronically signed by: Valery Vela MD (08/04/2021 3:13 PM) [id number]
== END ==
LOC: CT 10:33
PROVIDERS: ATTEND Physician Assistant
DX: C16.0 Malignant neoplasm of cardia (principal); R91.8 Other nonspecific abnormal finding of lung field; K52.9 Noninfective gastroenteritis and colitis, unspecified
CPT/HCPCS: 71260; 74177; Q9966; Q9967

== ENCOUNTER → 2021-10-22 | Outpatient (CLI) | payer OTHER, MEDICAID ==
--- NOTE | 2021-10-22 16:18 | RAD ---
EXAM: Chest, abdomen and pelvis CT with intravenous contrast. HISTORY: Gastric cancer restaging. TECHNIQUE: Computed tomographic images of the chest, abdomen and pelvis were obtained following the a dministration of intravenous contrast. Multiplanar reformatting was performed. *One or more of the following individualized dose reduction techniques were utilized for this examina tion: 1. Automated exposure control. 2. Adjustment of the mA and/or kV according to patient size. 3. Use of iterative reconstruction technique. COMPARISON: 08/04/2021. FINDINGS: Chest: The heart is upper normal in size to mildly enlarged. The aorta is normal in caliber . There is no pathologically enlarged mediastinal or hilar lymph node. There is no pneumothorax or pl eural effusion. There is no suspicious pulmonary nodule. There is no acute or suspicious osseous find ing. Abdomen and pelvis: No hepatic lesion is seen. The gallbladder, pancreas, spleen, adrenal glands and left kidney are unremarkable. There are 5 mm suspected benign cyst within the right kidney. Follow-up is not routinely recommended for benign-appearing cysts. The stomach is absent. There is a small bowel anastomosis within the left upper quadrant. There is no evidence of bowel obstruction. There is no appendicitis. There is moderate colonic stool. There is d istal colonic diverticulosis. There is no convincing diverticulitis. The bladder and prostate are unremarkable. The aorta is normal in caliber. No pathologically enlarged lymph node is seen. There are few nonspecific retroperitoneal and mesenteric lymph nodes. There is n o acute or suspicious osseous finding. IMPRESSION: 1. Colonic diverticulosis. There is no convincing diverticulitis. 2. Surgically absent stomach. No evidence of residual or recurrent malignancy. 3. Small benign right renal cysts. Electronically signed by: Susi Napier MD (10/22/2021 4:16 PM) [id number]
== END ==
LOC: CT 10:49
PROVIDERS: ATTEND Internal Medicine Hematology & Oncology
DX: K57.30 Diverticulosis of large intestine without perforation or abscess without bleeding (principal); N28.1 Cyst of kidney, acquired; K63.89 Other specified diseases of intestine; I89.8 Other specified noninfective disorders of lymphatic vessels and lymph nodes; Z90.3 Acquired absence of stomach [part of]
CPT/HCPCS: 71260; 74177; Q9966; Q9967

== ENCOUNTER → 2021-10-26 | Outpatient (CLI) | payer OTHER, MEDICAID ==
[~2021-10-26] MED LIST changes: -IOHEXOL 240 MG/ML 50ML VIAL. PO ONE; -IOHEXOL 300 MG/ML 100ML VIAL. IV ONE
[2021-10-26 10:52] LABS: BASO % 0 % (0-3); EOS # 0.1 x10^3/uL (0.0-0.7); EOS % 2 % (0-3); HEMATOCRIT 39.7 % (39.0-53.0); HEMOGLOBIN 13.1 g/dL (13.0-17.5); LYMPH # 1.5 x10^3/uL (1.0-4.8); LYMPH % 38 % (24-48); MEAN CORPUSCULAR HEMOGLOBIN 30 pg (25-35); MEAN CORPUSCULAR HGB CONC 33 g/dL (31-37); MEAN CORPUSCULAR VOLUME 92 fL (79-100); MONO # 0.4 x10^3/uL (0.0-1.1); MONO % 12 % (0-9); NEUT # 1.9 x10^3/uL (1.8-7.7); NEUT % 48 % (31-73); PLATELET COUNT 199 x10^3/uL (140-400); RED BLOOD COUNT 4.33 x10^6/uL (4.30-5.70); RED CELL DISTRIBUTION WIDTH 13.6 % (11.5-14.5); WHITE BLOOD COUNT 3.9 x10^3/uL (4.0-11.0)
[2021-10-26 10:57] LABS: CALCIUM 8.3 mg/dL (8.5-10.1); CREATININE 1.1 mg/dL (0.7-1.3); GFR 68.8; POTASSIUM 4.1 mmol/L (3.5-5.1)
[2021-10-26 11:01] LABS: ALBUMIN 3.4 g/dL (3.4-5.0); ALBUMIN/GLOBULIN RATIO 0.9 (1.0-1.7); TOTAL BILIRUBIN 0.7 mg/dL (0.2-1.0); TOTAL PROTEIN 7.2 g/dL (6.4-8.2)
== END ==
LOC: ONCLAB 10:13
PROVIDERS: ATTEND Internal Medicine Hematology & Oncology
DX: C16.0 Malignant neoplasm of cardia (principal)
CPT/HCPCS: 36415; 80053; 82378; 85025

== ENCOUNTER 2022-03-05 16:58 | Emergency (ER) | payer OTHER, MEDICAID ==
[~2022-03-05] VITALS: Ht 167.6 cm; Wt 57.3 kg
[2022-03-05] MEDS ORDERED: IV RINGERS,LACTATED 1000ML 1,000 ML IV ONE (17:30)
[2022-03-05 17:37] LABS: BASO % 1 % (0-3); EOS # 0.2 x10^3/uL (0.0-0.7); EOS % 3 % (0-3); HEMATOCRIT 36.8 % (39.0-53.0); HEMOGLOBIN 12.5 g/dL (13.0-17.5); LYMPH # 1.7 x10^3/uL (1.0-4.8); LYMPH % 36 % (24-48); MEAN CORPUSCULAR HEMOGLOBIN 30 pg (25-35); MEAN CORPUSCULAR HGB CONC 34 g/dL (31-37); MEAN CORPUSCULAR VOLUME 88 fL (79-100); MONO # 0.4 x10^3/uL (0.0-1.1); MONO % 8 % (0-9); NEUT # 2.5 x10^3/uL (1.8-7.7); NEUT % 53 % (31-73); PLATELET COUNT 225 x10^3/uL (140-400); RED BLOOD COUNT 4.17 x10^6/uL (4.30-5.70); WHITE BLOOD COUNT 4.8 x10^3/uL (4.0-11.0)
--- NOTE | 2022-03-05 17:49 | RAD ---
EXAMINATION: CT HEAD/BRAIN WO CLINICAL HISTORY: Frequent episodes of lightheadedness w/ AMS x3 weeks TECHNIQUE: Serial axial images without IV contrast were obtained from the vertex to the foramen magnu m. CT Dose Reduction Employed: One or more of the following individualized dose reduction techniques wer e utilized for this examination: 1. Automated exposure control 2. Adjustment of the mA and/or kV ac cording to patient size 3. Use of iterative reconstruction technique. COMPARISON: None FINDINGS: Acute Change: No evidence of an acute infarct or other acute parenchymal process. Hemorrhage: No evidence of acute intracranial hemorrhage. Mass Lesion/Mass Effect: No evidence of intracranial mass or extraaxial fluid collection. No signific ant mass effect. Chronic Change: Scattered patchy foci of hypoattenuation in the supratentorial white matter, nonspeci fic but likely represents mild microvascular ischemia. Atherosclerotic calcification of the intracran ial portion of the bilateral internal carotid arteries. Parenchyma: Mild generalized volume loss. Ventricles: Ventricles within normal limits for age. Paranasal Sinuses and Skull Base: Visualized paranasal sinuses clear. Visualized skull base and soft tissues unremarkable. IMPRESSION: No evidence of acute intracranial abnormality. Electronically signed by: Kehinde Logan DO (03/05/2022 5:47 PM) [facility]
--- NOTE | 2022-03-05 18:04 | RAD ---
EXAM: AP View of the chest DATE: 03/05/2022 5:41 PM INDICATION: Reason: AMS episodes COMPARISON: 09/08/2020 FINDINGS: The heart is not enlarged. Mediastinal and hilar contours are normal. Mild interstitial prominence. Subtle patchy opacities in the peripheral lower lungs. No pleural effusion or pneumothorax. IMPRESSION: 1. Interstitial prominence and patchy bilateral opacities, possibly atypical infectious or inflammat ory process or Electronically signed by: Jason Russ MD (03/05/2022 6:01 PM) [id number]
[2022-03-05 18:11] VITALS: BP 133/90
[2022-03-05 18:11] LABS: CALCIUM 8.4 mg/dL (8.5-10.1); CREATININE 1.1 mg/dL (0.7-1.3); GFR 68.5; POTASSIUM 4.3 mmol/L (3.5-5.1)
--- NOTE | 2022-03-05 18:11 | PHYS DOC ---
Past Medical History Past Medical History: Cancer Additional Past Medical Histor: Stomach cancer Past Surgical History: Cancer Surgery, Other Additional Past Surgical Histo: Stomach removed Smoking Status: Never Smoker Alcohol Use: None General Adult EDM: Chief Complaint: ALTERED MENTAL STATUS HPI: HPI: Patient is a 57 year old male who presents with 3-week history of intermittent episodes of near syncope. Patient states that when he has these episodes, he feels dizzy and is extremely diaphoretic, to the point that he soaks his shirt that he is wearing. He has then "confused" for period of 2-3 minutes, per his at bedside. These episodes come on randomly, sometimes during the day, and sometimes while sleeping at night. Patient has not sustained any falls or head/neck trauma as a result of these episodes. Patient denies any other associated symptoms including palpitations, shortness of breath, chest pain. Patient had an appointment with his primary care provider, Dr. Armas, who advised they present to the emergency department for further evaluation and work-up. Patient has history of stomach cancer status postgastrectomy, which was several years ago. Review of Systems: Review of Systems: Constitutional: Denies fever, chills or generalized weakness Eyes: Denies change in visual acuity, visual field deficits or discharge HENT: Denies ear pain, nasal congestion or sore throat Respiratory: Denies cough or shortness of breath Cardiovascular: See HPI GI: Denies abdominal pain, nausea, vomiting, bloody stools or diarrhea : Denies dysuria or hematuria Musculoskeletal: Denies back pain or joint pain Integument: Denies rash or other skin lesion Neurologic: See HPI Heart Score: C/O Chest Pain: No Current Medications: Current Medications Medications (Trade) Dose Ordered Sig/Yelena Start Time Stop Time Status Last Admin Dose Admin Ringer's Solution 1,000 ml @ 1,000 mls/hr 1X ONCE 03/05/22 17:30 03/05/22 18:29 03/05/22 17:50 1,000 MLS/HR Allergies: Allergies: Allergies Coded Allergies Type Severity Reaction Last Updated Verified No Known Drug Allergies 08/18/20 No Physical Exam: PE: Constitutional: Well developed, well nourished, no acute distress, non-toxic appearance. HENT: Normocephalic, atraumatic, bilateral external ears normal, nose normal. Eyes: PERRL, EOMI, conjunctiva normal, no discharge. Neck: Normal range of motion, no stridor. Cardiovascular: Heart regular rate and rhythm. Lungs & Thorax: Equal thoracic expansion, no increased work of breathing, breath sounds clear to auscultation in all lung weber. Skin: Warm, dry, no erythema, no rash, good turgor. Extremities: No tenderness, no cyanosis, no clubbing, ROM intact, no edema. Neurologic: Alert and oriented x4, normal motor function, normal sensory function, steady and symmetrical upright gait, no focal deficits noted. Psychologic: Affect appropriate, good judgment. Current Patient Data: Labs: Laboratory Tests Test 03/05/22 17:30 03/05/22 18:18 White Blood Count 4.8 x10^3/uL (4.0-11.0) Red Blood Count 4.17 x10^6/uL (4.30-5.70) Hemoglobin 12.5 g/dL (13.0-17.5) Hematocrit 36.8 % (39.0-53.0) Mean Corpuscular Volume 88 fL (79-100) Mean Corpuscular Hemoglobin 30 pg (25-35) Mean Corpuscular Hemoglobin Concent 34 g/dL (31-37) Red Cell Distribution Width 14.0 % (11.5-14.5) Platelet Count 225 x10^3/uL (140-400) Neutrophils (%) (Auto) 53 % (31-73) Lymphocytes (%) (Auto) 36 % (24-48) Monocytes (%) (Auto) 8 % (0-9) Eosinophils (%) (Auto) 3 % (0-3) Basophils (%) (Auto) 1 % (0-3) Neutrophils # (Auto) 2.5 x10^3/uL (1.8-7.7) Lymphocytes # (Auto) 1.7 x10^3/uL (1.0-4.8) Monocytes # (Auto) 0.4 x10^3/uL (0.0-1.1) Eosinophils # (Auto) 0.2 x10^3/uL (0.0-0.7) Basophils # (Auto) 0.0 x10^3/uL (0.0-0.2) Sodium Level 142 mmol/L (136-145) Potassium Level 4.3 mmol/L (3.5-5.1) Chloride Level 109 mmol/L (98-107) Carbon Dioxide Level 25 mmol/L (21-32) Anion Gap 8 (6-14) Blood Urea Nitrogen 10 mg/dL (8-26) Creatinine 1.1 mg/dL (0.7-1.3) Estimated GFR (Cockcroft-Gault) 68.5 BUN/Creatinine Ratio 9 (6-20) Glucose Level 90 mg/dL (70-99) Calcium Level 8.4 mg/dL (8.5-10.1) Phosphorus Level 4.2 mg/dL (2.6-4.7) Magnesium Level 2.0 mg/dL (1.8-2.4) Total Bilirubin 1.1 mg/dL (0.2-1.0) Aspartate Amino Transf (AST/SGOT) 22 U/L (15-37) Alanine Aminotransferase (ALT/SGPT) 26 U/L (16-63) Alkaline Phosphatase 104 U/L (46-116) Total Protein 7.2 g/dL (6.4-8.2) Albumin 3.6 g/dL (3.4-5.0) Albumin/Globulin Ratio 1.0 (1.0-1.7) Urine Collection Type Unknown Urine Color (Auto) Yellow Urine Turbidity Clear Urine pH (Auto) 5.5 (<5.0-8.0) Urine Specific [place] 1.024 (1.000-1.030) Urine Protein (Auto) 50 mg/dL (Negative) Urine Glucose (Auto)(UA) 200 mg/dL (Negative) Urine Ketones (Auto) Trace mg/dL (Negative) Urine Blood (Auto) Negative (Negative) Urine Nitrite Negative (Negative) Urine Bilirubin (Auto) Negative (Negative) Urine Urobilinogen (Auto) 2 mg/dL (Normal) Urine Leukocyte Esterase (Auto) Negative (Negative) Urine RBC 0 /HPF (0-2) Urine WBC 0 /HPF (0-4) Urine Bacteria 0 /HPF (0-FEW) Urine Mucus Marked /LPF Urine Sperm Present /HPF Vital Signs: Vital Signs Date Time Temp Pulse Resp B/P (MAP) Pulse Ox O2 Delivery O2 Flow Rate FiO2 03/05/22 18:11 50 16 133/90 (104) 99 Room Air 03/05/22 17:41 48 16 135/79 (97) 99 Room Air 03/05/22 17:15 98.1 55 18 130/79 (96) 98 Room Air 98.1 03/05/22 17:14 48 16 135/79 (97) 99 Room Air EKG: EKG: EKG Interpreted by Dr. Chen at 1746: Regular rate and rhythm 48 bpm with no ectopic beats. VA 176 ms/QT 412 ms/QTc 371 ms. No STEMI. Radiology/Procedures: Radiology/Procedures: PROCEDURE: CT HEAD WO CONTRAST EXAMINATION: CT HEAD/BRAIN WO CLINICAL HISTORY: Frequent episodes of lightheadedness w/ AMS x3 weeks TECHNIQUE: Serial axial images without IV contrast were obtained from the vertex to the foramen magnum. CT Dose Reduction Employed: One or more of the following individualized dose reduction techniques were utilized for this examination: 1. Automated exposure control 2. Adjustment of the mA and/or kV according to patient size 3. Use of iterative reconstruction technique. COMPARISON: None FINDINGS: Acute Change: No evidence of an acute infarct or other acute parenchymal process. Hemorrhage: No evidence of acute intracranial hemorrhage. Mass Lesion/Mass Effect: No evidence of intracranial mass or extraaxial fluid collection. No significant mass effect. Chronic Change: Scattered patchy foci of hypoattenuation in the supratentorial white matter, nonspecific but likely represents mild microvascular ischemia. Atherosclerotic calcification of the intracranial portion of the bilateral internal carotid arteries. Parenchyma: Mild generalized volume loss. Ventricles: Ventricles within normal limits for age. Paranasal Sinuses and Skull Base: Visualized paranasal sinuses clear. Visualized skull base and soft tissues unremarkable. IMPRESSION: No evidence of acute intracranial abnormality. Electronically signed by: Kehinde Logan DO (03/05/2022 5:47 PM) [place] PROCEDURE: PORTABLE CHEST 1V EXAM: AP View of the chest DATE: 03/05/2022 5:41 PM INDICATION: Reason: AMS episodes COMPARISON: 09/08/2020 FINDINGS: The heart is not enlarged. Mediastinal and hilar contours are normal. Mild interstitial prominence. Subtle patchy opacities in the peripheral lower lungs. No pleural effusion or pneumothorax. IMPRESSION: 1. Interstitial prominence and patchy bilateral opacities, possibly atypical infectious or inflammatory process or Electronically signed by: Jason Russ MD (03/05/2022 6:01 PM) [id number] Course & Med Decision Making: Course & Med Decision Making Pertinent Labs and Imaging studies reviewed. (See chart for details) Work-up today for patient's rib pain and episodes of near syncope will include head CT plain, chest x-ray, EKG, labs. Patient has additional complaint of involuntary and repetitive lower extremity movements only while sleeping. I advised that he follow-up with his primary care provider about this complaint. Patient work-up today is reassuring. He is found to be slightly anemic. I discussed all findings with patient's primary care physician, Dr. Armas, who will follow up with the patient on an outpatient basis. Patient and his family member at bedside were provided with fall precautions. Additionally, they are provided with return precautions. Patient and his at bedside understand and are agreeable to discharge plan. Dragon Disclaimer: Lakhwinder Disclaimer: This electronic medical record was generated, in whole or in part, using a voice recognition dictation system. Departure Departure Impression: Primary Impression: Near syncope Additional Impression: Nocturnal leg movements Disposition: 01 HOME / SELF CARE / HOMELESS Condition: STABLE Patient Instructions: Fall Prevention and Home Safety, [id number], Near- Syncope, [id number] Additional Instructions: EMERGENCY DEPARTMENT GENERAL DISCHARGE INSTRUCTIONS Thank you for coming to [facility] Emergency Department (ED) today and trusting us with you care. We trust that you had a positive experience in our Emergency Department. If you wish to speak to the department management, you may call the director at . YOUR FOLLOW UP INSTRUCTIONS ARE FOLLOWS: 1. Follow up with your primary care doctor. If you do not have a primary doctor, please ask for a resource list of physicians or clinics that may be able to assist you with follow up care. 2. The emergency provider has interpreted your imaging studies, if any were ordered. The radiology environmental programs specialist also reviewed them. If there is a change in the findings, you will be notified in 48 hours when at all possible. 3. If a lab test or culture has been done, your results will be reviewed and you will be notified if you need a change in treatment. 4. Follow instructions verbalized to you and refer to the printouts if needed. ADDITIONAL INSTRUCTIONS AND INFORMATION: 1. Your care today has been supervised by a physician who is specially trained in emergency care. Many problems require more than one evaluation for a complete diagnosis and treatment. We recommend that you schedule your follow up appointment as recommended to ensure complete treatment of you illness or injury. If you are unable to obtain follow up care and continue to have a problem, or if your condition worsens, we recommend that you return to the ED. 2. We are not able to safely determine your condition over the phone nor are we able to give sound medical advice over the phone. For these safety reasons, if you call for medical advice we will ask you to come to the ED for further evaluation. 3. If you have any questions regarding these discharge instructions please call the ED at . SAFETY INFORMATION: In the interest of safety, wellness, and injury prevention; we encourage you to wear your seat belt, if you smoke; quite smoking, and we encourage family to use a protective helmet for bicycling and other sporting events that present an increased risk for head injury. IF YOUR SYMPTOMS WORSEN OR NEW SYMPTOMS DEVELOP, OR YOU HAVE CONCERNS ABOUT YOUR CONDITION; OR IF YOUR CONDITION WORSENS WHILE YOU ARE WAITING FOR YOUR FOLLOW UP APPOINTMENT; EITHER CONTACT YOUR PRIMARY CARE DOCTOR, THE PHYSICIAN WHOSE NAME AND NUMBER YOU WERE GIVEN, OR RETURN TO THE ED IMMEDIATELY. LALIT CORMIER March 05, 2022 18:11
[2022-03-05 18:16] LABS: ALBUMIN 3.6 g/dL (3.4-5.0); PHOSPHORUS 4.2 mg/dL (2.6-4.7); TOTAL BILIRUBIN 1.1 mg/dL (0.2-1.0); TOTAL PROTEIN 7.2 g/dL (6.4-8.2)
[2022-03-05 18:32] LABS: BACTERIA,URINE 0 /HPF (0-FEW); RBC,URINE 0 /HPF (0-2); SPERM,URINE PRESENT /HPF; WBC,URINE 0 /HPF (0-4)
--- NOTE | 2022-03-06 05:53 | EKG ---
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
== END 2022-03-05 18:45 | disposition home or self-care (01) ==
LOC: ER 16:58
DX: R55 Syncope and collapse (principal); R42 Dizziness and giddiness
CPT/HCPCS: 36415; 70450; 71045; 80053; 81001; 83735; 84100; 85025; 93005; 96360; 99285; J7120